=== PATIENT | female | born 1980 | race Caucasian/White ===

== ENCOUNTER 2016-07-24 23:37 | Emergency (ER) | payer SELFPAY ==
[2016-07-25] MEDS ORDERED: ACETAMINOPHEN 325 MG TABLET PO ONE (02:04)
--- NOTE | 2016-07-25 05:30 | ER Document Report ---
ED General - General Chief Complaint: Wrist Injury Stated Complaint: LEFT WRIST INJURY Notes: Patient is a 36-year-old female presents with complaint of pain in left wrist. Patient says that she's taking out the trash and her son was helping her. She says usually, the trash that he cannot hard on her left hand. She complains of pain over her wrist and hand. Feels some numbness and tingling into her fingertips. No other injuries. She says it hurts to move her hand or wrist. TRAVEL OUTSIDE OF THE [place] IN LAST 30 DAYS: No - Related Data Allergies/Adverse Reactions: cephalexin monohydrate [From Keflex] Allergy (Verified 02/20/16 19:47) Past Medical History - Social History Smoking Status: Unknown if Ever Smoked Frequency of alcohol use: None Drug Abuse: None Family History: Reviewed & Not Pertinent Patient has suicidal ideation: No Patient has homicidal ideation: No - Past Medical History Cardiac Medical History: Denies: Hx Coronary Artery Disease, Hx Hypertension Pulmonary Medical History: Denies: Hx Asthma Neurological Medical History: Reports: Hx Migraine Endocrine Medical History: Denies: Hx Diabetes Mellitus Type 1, Hx Diabetes Mellitus Type 2 Renal/ Medical History: Reports: Hx Ovarian Cysts. Denies: Hx Peritoneal Dialysis GI Medical History: Reports: Hx Gastritis Musculoskeltal Medical History: Reports Hx Musculoskeletal Deformity - both arm and left foot, Reports Hx Musculoskeletal Trauma Past Surgical History: Reports: Hx Appendectomy - 01, Hx Cholecystectomy - 04, Hx Hysterectomy. Denies: Hx Section - Immunizations Immunizations up to date: Yes Hx Diphtheria, Pertussis, Tetanus Vaccination: Yes - 2006 Review of Systems - Review of Systems Notes: My Normal Review Basic REVIEW OF SYSTEMS: CONSTITUTIONAL : Denies fever, chills, or sweats. Denies recent illness. MUSCULOSKELETAL: Pain over left hand and wrist. SKIN: Denies rash or skin lesions. NEUROLOGICAL: Tingling sensation in the left fingertips. ALL OTHER SYSTEMS REVIEWED AND NEGATIVE. Physical Exam - Vital signs Vitals: Temp Pulse Resp BP Pulse Ox 97.7 F 80 18 145/92 H 100 07/25/16 02:00 07/25/16 02:00 07/25/16 02:00 07/25/16 02:00 07/25/16 02:00 - Notes Notes: General Appearance: Well nourished, alert, cooperative, no acute distress, moderate obvious discomfort. Vitals: reviewed, See vital signs table. Extremities: strength 5/5 in all extremities, good pulses in all extremities, pain to palpation over the dorsum of left hand and wrist. Some swelling over the dorsum of the proximal hand and wrist. Good capillary refill in the hand. Patient does have good distal sensation when I touch all fingers. She is able to flex her fingers but has some pain in doing so. No edema. Skin: warm, dry, appropriate color, no rash Neuro: speech clear, oriented x 3, normal affect, responds appropriately to questions. Course - Vital Signs Vital signs: Temp Pulse Resp BP Pulse Ox 97.7 F 80 18 145/92 H 100 07/25/16 02:00 07/25/16 02:00 07/25/16 02:00 07/25/16 02:00 07/25/16 02:00 - Transfer of Care Notes: 07/25/16 05:26 Patient has what appears be a wrist and hand contusion. X-rays negative for fracture. She'll be discharged home. I will place her in a cock-up splint being that she does have some pain over the scaphoid area. Will have her follow -up with her doctor in one week for reevaluation to see if she needs repeat x- rays. Patient encouraged return to ER shows worsening of her symptoms. Patient agrees with plan and will be discharged home. Dictation of this chart was performed using voice recognition software; therefore, there may be some unintended grammatical errors. Discharge - Discharge Clinical Impression: Hand contusion Qualifiers: Encounter type: initial encounter Laterality: left Qualified Code(s): S60.222A - Contusion of left hand, initial encounter Wrist contusion Qualifiers: Encounter type: initial encounter Laterality: left Qualified Code(s): S60.212A - Contusion of left wrist, initial encounter Condition: Good Disposition: HOME, SELF-CARE Instructions: Oral Narcotic Medication ([facility]) Additional Instructions: Please wear the splint that has been given to you. This will help protect your wrist in case there is an tendonous injury or a small fracture that is not able to be seen on x-ray. Please follow-up with your doctor in one week. If you're still having pain they may re-x-ray your hand and wrist. If you're pain-free then most likely you can remove the wrist splint at that time. Return to the ER if you have worsening of your symptoms.
[2016-07-25] MEDS ORDERED: HYDROCODONE/ACETAMINOPHEN 5-325 MG 6 TAB/DSPK PO PRN (06:05)
[2016-07-25 06:10] VITALS: BP 139/85
== END 2016-07-25 06:09 | disposition home or self-care (01) ==
LOC: ER 23:37
DX: S60.212A Contusion of left wrist, initial encounter (principal); S60.222A Contusion of left hand, initial encounter; W20.8XXA Other cause of strike by thrown, projected or falling object, initial encounter; Y93.89 Activity, other specified; R20.2 Paresthesia of skin; M79.642 Pain in left hand; M25.532 Pain in left wrist
CPT/HCPCS: 99283; 73110; L3984

== ENCOUNTER 2016-08-08 19:37 | Emergency (ER) | payer SELFPAY ==
[2016-08-08 19:50] VITALS: BP 135/95
[2016-08-08] MEDS ORDERED: HYDROCODONE/ACETAMINOPHEN 5-325 MG TABLET PO ONE (20:16)
--- NOTE | 2016-08-08 20:17 | ER Document Report ---
HPI - HPI Patient complains to provider of: knee, ankle and foot injury Onset: This afternoon Onset/Duration: Sudden Quality of pain: Sharp Pain Level: 4 Context: Patient states she was cleaning out a pool, slipped and fell injuring her left knee, foot and ankle. Patient states that she felt a pop in her knee. Patient does report a previous history of torn tendons in her foot for which she saw an orthopedic doctor last year. Associated Symptoms: Other - Left knee, foot and ankle pain Exacerbated by: Standing, Movement, Walking Relieved by: Denies Similar symptoms previously: Yes Recently seen / treated by doctor: No - ROS ROS below otherwise negative: Yes Systems Reviewed and Negative: Yes All other systems reviewed and negative - NEURO Neurology: DENIES: Weakness - REPRODUCTIVE Reproductive: DENIES: : - MUSCULOSKELETAL Musculoskeletal: REPORTS: Extremity pain - Left knee, foot and ankle - DERM Skin Color: Normal Skin Problems: None Past Medical History - General Information source: Patient - Social History Smoking Status: Current Every Day Smoker Frequency of alcohol use: None Drug Abuse: None 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 Denies: Hx Peritoneal Dialysis GI Medical History: Reports: Hx Gastritis Musculoskeltal Medical History: Reports Hx Musculoskeletal Deformity - both arm and left foot, Reports Hx Musculoskeletal Trauma Past Surgical History: Reports: Hx Appendectomy - 01, Hx Cholecystectomy - 04, Hx Hysterectomy. Denies: Hx Section - Immunizations Immunizations up to date: Yes Hx Diphtheria, Pertussis, Tetanus Vaccination: Yes - 2006 [facility] Provider Document - CONSTITUTIONAL Agree With Documented VS: Yes Exam Limitations: No Limitations General Appearance: WD/WN, No Apparent Distress - INFECTION CONTROL TRAVEL OUTSIDE OF THE [place] IN LAST 30 DAYS: No - HEENT HEENT: Atraumatic, Normocephalic - NECK Neck: Normal Inspection - RESPIRATORY Respiratory: No Respiratory Distress O2 Sat by Pulse Oximetry: 99 - CARDIOVASCULAR Pulses: Normal: Posterior tibial, Dorsalis pedis - MUSCULOSKELETAL/EXTREMETIES Musculoskeletal/Extremeties: MAEW, Tender - Left knee joint tenderness to lateral compartment. Patient with faint ecchymosis overlying knee. No joint effusion. No laxity with varus or valgus maneuvers., No Edema, Eccymosis Notes: Left ankle tenderness over bilateral malleolar area. 1+ edema noted to lateral malleolar area to bilateral ankles. Patient with left midfoot tenderness, no edema, no ecchymosis. - NEURO Level of Consciousness: Awake, Alert, Appropriate Motor/Sensory: No Motor Deficit - DERM Integumentary: Warm, Dry Course - Re-evaluation Re-evalutation: 08/08/16 21:02 The patient has been informed that they may have pre-hypertension or hypertension based on a blood pressure reading in the emergency department. I recommend that patient call the primary care provider listed on their discharge instructions or a physician of their choice by this week to arrange follow-up for further evaluation of possible pre-hypertension her hypertension. - Vital Signs Vital signs: Temp Pulse Resp BP Pulse Ox 97.5 F 107 H 20 135/95 H 99 08/08/16 19:46 08/08/16 19:46 08/08/16 19:46 08/08/16 19:46 08/08/16 19:46 - Diagnostic Test Radiology reviewed: Image reviewed, Reports reviewed Procedures - Immobilization Left Knee Pre-Proc Neuro Vasc Exam: Normal Immobilizer type: Knee immobilizer Performed by: PCT Post-Proc Neuro Vasc Exam: Normal Alignment checked and good: Yes Left Ankle Pre-Proc Neuro Vasc Exam: Normal Immobilizer type: Magdi wrap Performed by: PCT Post-Proc Neuro Vasc Exam: Normal Alignment checked and good: Yes Left Foot Pre-Proc Neuro Vasc Exam: Normal Immobilizer type: Post-op shoe Performed by: PCT Post-Proc Neuro Vasc Exam: Normal Alignment checked and good: Yes Discharge - Discharge Clinical Impression: Left foot pain, Elevated blood pressure reading Fall Qualifiers: Encounter type: initial encounter Qualified Code(s): W19.XXXA - Unspecified fall, initial encounter Knee sprain Qualifiers: Encounter type: initial encounter Involved ligament of knee: unspecified ligament Laterality: left Qualified Code(s): S83.92XA - Sprain of unspecified site of left knee, initial encounter Left ankle sprain Qualifiers: Encounter type: initial encounter Involved ligament of ankle: unspecified ligament Qualified Code(s): S93.402A - Sprain of unspecified ligament of left ankle, initial encounter Condition: Stable Disposition: HOME, SELF-CARE Instructions: Ice & Elevation ([facility]), Use of Crutches ([facility]), Knee Immobilizing Splint ([facility]), Sprained Knee ([facility]), Sprained Ankle ([facility]), Oral Narcotic Medication ([facility]), Ice Packs ([facility]) Additional Instructions: Return immediately for any new or worsening symptoms Followup with your primary care provider, call tomorrow to make a followup appointment Weightbearing as tolerated Follow-up with orthopedic Dr. for any continued pain or problems Your blood pressure was mildly elevated today, recheck with primary doctor in the next week for recheck Prescriptions: Hydrocodone/Acetaminophen [Liberty 5-325 Tablet] 1 each PO Q4 PRN #8 tablet PRN Reason: Forms: Elevated Blood Pressure, Return to Work Referrals: PASTORA MCCULLOUGH DO [ACTIVE STAFF] - Follow up in 3-5 days [facility] [Provider Group] - Follow up as needed
[2016-08-08] MEDS ORDERED: HYDROCODONE/ACETAMINOPHEN 5-325 MG 6 TAB/DSPK PO PRN (21:04)
== END 2016-08-08 21:32 | disposition home or self-care (01) ==
LOC: ER 19:37
DX: S83.92XA Sprain of unspecified site of left knee, initial encounter (principal); S93.402A Sprain of unspecified ligament of left ankle, initial encounter; M25.562 Pain in left knee; M25.572 Pain in left ankle and joints of left foot; W01.0XXA Fall on same level from slipping, tripping and stumbling without subsequent striking against object, initial encounter; F17.200 Nicotine dependence, unspecified, uncomplicated
CPT/HCPCS: 99284; 73610; 73630; 73562; L1830

== ENCOUNTER 2016-08-23 00:09 | Emergency (ER) | payer SELFPAY ==
[2016-08-23] MEDS ORDERED: ASPIRIN 81 MG TABLET, CHEWABLE PO ONE (00:12)
[2016-08-23 01:58] LABS: ABSOLUTE BASOPHILS # (AUTO) 0.1 10^3/uL (0.0-0.2); ABSOLUTE EOSINOPHILS # (AUTO) 0.2 10^3/uL (0.0-0.6); ABSOLUTE LYMPHOCYTES (AUTO) 6.4 10^3/uL (0.5-4.7); ABSOLUTE MONOCYTES (AUTO) 0.7 10^3/uL (0.1-1.4); ABSOLUTE NEUT (AUTO) 6.6 10^3/uL (1.7-8.2); EOSINOPHILS % (AUTO) 1.5 % (0-6); HEMATOCRIT 40.4 % (36.0-47.0); HEMOGLOBIN 13.4 g/dL (12.0-15.5); HGB HCT DIFFERENCE -0.2; LYMPHOCYTES % (AUTO) 45.4 % (13-45); MEAN CORPUSCULAR HEMOGLOBIN 29.1 pg (27.0-33.4); MEAN CORPUSCULAR HGB CONC 33.2 g/dL (32.0-36.0); MEAN CORPUSCULAR VOLUME 88 fl (80-97); MONOCYTES % (AUTO) 5.3 % (3-13); RED BLOOD COUNT 4.61 10^6/uL (3.72-5.28); RED CELL DISTRIBUTION WIDTH 13.4 % (11.5-14.0); SEGMENTED NEUTROPHILS % (AUTO) 46.8 % (42-78); WHITE BLOOD COUNT 14.1 10^3/uL (4.0-10.5)
[2016-08-23 02:13] LABS: ALANINE AMINOTRANSFERASE 38 U/L (9-52); ALBUMIN 4.3 g/dL (3.5-5.0); ALKALINE PHOSPHATASE 90 U/L (38-126); ANION GAP 11 (5-19); ASPARTATE AMINO TRANSFERASE 25 U/L (14-36); BILIRUBIN,DIRECT 0.5 mg/dL (0.0-0.4); BILIRUBIN,TOTAL 0.6 mg/dL (0.2-1.3); BLOOD UREA NITROGEN 15 mg/dL (7-20); CARBON DIOXIDE 19 mmol/L (22-30); CHLORIDE 109 mmol/L (98-107); CREATINE KINASE 123 U/L (30-135); GLUCOSE 96 mg/dL (75-110); POTASSIUM 3.7 mmol/L (3.6-5.0); SODIUM 139.4 mmol/L (137-145); TOTAL PROTEIN 7.4 g/dL (6.3-8.2)
--- NOTE | 2016-08-23 02:16 | ER Document Report ---
ED General - General Chief Complaint: Chest Pain Stated Complaint: CHEST PAIN Time Seen by Provider: 08/23/16 02:13 Notes: Patient is a 36-year-old female who presents with complaint of chest pain. She says chest pain started at 11 PM. The pressure pain going into her neck and into her left shoulder. Nothing seems to make it better or worse. She does feel slightly short of breath with it. No recent fevers or infections. No abdominal pain. Patient says she has a family history of cardiac disease. Her dad had a heart attack at age 34. She says that her father did have a heart cath after the IL but never had stents place and did not have a blockage that she is aware of. Her grandfather in his 40s from what she thinks was an IL. Her mother just had a heart attack last year. The patient had a stress test approximately 4 years ago which was normal. She states typically does not get this kind of chest pain. She has no other complaints at this time. TRAVEL OUTSIDE OF THE [place] IN LAST 30 DAYS: No - Related Data Allergies/Adverse Reactions: cephalexin monohydrate [From Keflex] Allergy (Verified 08/08/16 19:46) Past Medical History - Social History Smoking Status: Current Every Day Smoker Frequency of alcohol use: None Drug Abuse: None Family History: Reviewed & Not Pertinent - Past Medical History Cardiac Medical History: Denies: Hx Coronary Artery Disease, Hx Hypertension Pulmonary Medical History: Denies: Hx Asthma Neurological Medical History: Reports: Hx Migraine Endocrine Medical History: Denies: Hx Diabetes Mellitus Type 1, Hx Diabetes Mellitus Type 2 Renal/ Medical History: Reports: Hx Ovarian Cysts. Denies: Hx Peritoneal Dialysis GI Medical History: Reports: Hx Gastritis Musculoskeltal Medical History: Reports Hx Musculoskeletal Deformity - both arm and left foot, Reports Hx Musculoskeletal Trauma Past Surgical History: Reports: Hx Appendectomy - 01, Hx Cholecystectomy - 04, Hx Hysterectomy. Denies: Hx Section - Immunizations Immunizations up to date: Yes Hx Diphtheria, Pertussis, Tetanus Vaccination: Yes - 2006 Review of Systems - Review of Systems Notes: My Normal Review Basic REVIEW OF SYSTEMS: CONSTITUTIONAL : Denies fever, chills, or sweats. Denies recent illness. EENT: Denies eye, ear, throat, or mouth pain or symptoms. Denies nasal or sinus congestion. CARDIOVASCULAR: Has chest pain. RESPIRATORY: Denies cough, cold, or chest congestion. Denies shortness of breath, difficulty breathing, or wheezing. GASTROINTESTINAL: Denies abdominal pain. Denies nausea, vomiting, or diarrhea. Denies constipation. Last BM: MUSCULOSKELETAL: Denies neck or back pain or joint pain or swelling. SKIN: Denies rash or skin lesions. NEUROLOGICAL: Denies altered mental status or loss of consciousness. Denies headache. Denies weakness or paralysis or loss of use of either side. Denies problems with gait or speech. Denies sensory or motor loss. ALL OTHER SYSTEMS REVIEWED AND NEGATIVE. Physical Exam - Vital signs Vitals: Pulse Ox 98 08/23/16 00:12 - Notes Notes: General Appearance: Well nourished, alert, cooperative, no acute distress, moderate obvious discomfort. Vitals: reviewed, See vital signs table. Head: no swelling or tenderness to the head Eyes: PERRL, EOMI, Conjuctiva clear Mouth: No decreasd moisture Neck: Supple, no neck tenderness, No thyromegaly Lungs: No wheezing, No rales, No rhonci, No accessory muscle use, good air exchange bilaterally. Heart: Normal rate, Regular rythm, No murmur, no rub Chest Wall: Patient's anterior chest wall is very tender to palpation. Abdomen: Normal BS, soft, No rigidity, No abdominal tenderness, No guarding, no rebound, no abdominal masses, no organomegaly Extremities: strength 5/5 in all extremities, good pulses in all extremities, no swelling or tenderness in the extremities, no edema. Skin: warm, dry, appropriate color, no rash Neuro: speech clear, oriented x 3, normal affect, responds appropriately to questions. Course - Vital Signs Vital signs: Temp Pulse Resp BP Pulse Ox 18 131/84 H 99 08/23/16 04:14 08/23/16 04:14 08/23/16 04:14 - Laboratory Result Diagrams: 08/23/16 01:30 08/23/16 01:30 Laboratory results interpreted by me: 08/23/16 08/23/16 01:30 01:30 WBC 14.1 H Lymphocytes % 45.4 H Absolute Lymphocytes 6.4 H Chloride 109 H Carbon Dioxide 19 L Direct Bilirubin 0.5 H - EKG Interpretation by Me Additional EKG results interpreted by me: 08/23/16 02:16 EKG is reviewed and interpreted by me. EKG shows normal sinus rhythm with rate of [address] segment elevation or depression. No ischemic T-wave inversions. ND interval is slightly prolonged. QRS duration QT intervals are within normal range. 08/23/16 04:29 #2 is reviewed and interpreted by me. EKG shows normal sinus rhythm with a rate of [address] segment elevation or depression. No ischemic T-wave inversions. ND interval, QRS duration, QTc intervals are within normal range. - Transfer of Care Notes: 08/23/16 06:34 Corrected from my or smoking and family history. Her family history is not 100 % clear. She says her father had an IL at the age of 34; however, she also says that she had a cardiac cath and there was no blockages no stents were placed. Her mother has had an IL but her mother just had one last year and therefore her mother was much older when she had the MRI. The patient herself is easily reproducible chest pain to palpation. Her troponin and Advil troponin are normal. Her EKG and repeat EKGs are normal. I do not suspect cardiac disease at this time. I think she is low risk for cardiac disease. I think it is appropriate to have her do an outpatient follow-up with cardiology. I do not think she requires admission at this time. She is encouraged to return to ER if she is worsening pain or feels unwell. CT a of the chest was negative. There is no evidence of PE or dissection. Dictation of this chart was performed using voice recognition software; therefore, there may be some unintended grammatical errors. 08/23/16 06:43 Discharge - Discharge Clinical Impression: Chest pain Qualifiers: Chest pain type: unspecified Qualified Code(s): R07.9 - Chest pain, unspecified Condition: Good Disposition: HOME, SELF-CARE Additional Instructions: CHEST PAIN OF UNCLEAR CAUSE: The exact cause of your chest pain isn't clear. Fortunately, there is no evidence of a dangerous medical condition. Further testing may be required to find the source of the pain. Most often, we find that this pain is coming from the chest wall -- the muscles or rib joints in the chest. But chest pain can come from the lung and lung lining, the esophagus, the heart valves or heart lining, and even the stomach or gallbladder. Rest. Eat lightly until the pain is gone. We may prescribe medicine for pain and inflammation. You should call the physician immediately if the pain radiates to the shoulder, jaw or arms; if you start to run a fever or develop a cough; or if you develop shortness of breath, or other new or alarming symptoms. NORMAL EXAM AND WORKUP: At this time, your examination and workup show no significant abnormality. No significant abnormal physical findings were noted. All laboratory, EKG, and imaging (x-ray, CT scans) studies that were ordered show no significant abnormality. Although your examination and all studies that were ordered showed no significant abnormal finding, there are no examinations and no studies that are 100% accurate. There is always the possibility that some abnormality could exist and not be detected with physical examination or within the limits and capabilities of laboratory and other studies. You should return or follow up as you were instructed on your visit today for further evaluation if your symptoms do not resolve. FOLLOW-UP CARE: If you have been referred to a physician for follow-up care, call the physician s office for an appointment as you were instructed or within the next two days. If you experience worsening or a significant change in your symptoms, notify the physician immediately or return to the Emergency Department at any time for re-evaluation. Please return to the ER immediately if you have worsening pain, difficulty breathing, fevers, or feel unwell. Please call Dr. Cameron, theater projectionist, on Wednesday for reevaluation. Please take a daily aspirin as this is protective of your heart.
[2016-08-23 02:24] LABS: CREATINE KINASE MB 0.33 ng/mL (<4.55)
[2016-08-23 02:25] LABS: TROPONIN I < 0.012 ng/mL
[2016-08-23] MEDS ORDERED: NITROGLYCERIN 2% OINTMENT 1 GM PACKET TP ONE (02:27)
[2016-08-23] MEDS ORDERED: LORAZEPAM INJ 2 MG/1 ML VIAL IV ONE (02:27)
--- NOTE | 2016-08-23 03:46 | RADIOLOGY REPORT (SQ) ---
EXAM DESCRIPTION: CHEST SINGLE VIEW COMPLETED DATE/TIME: 08/23/2016 3:18 am REASON FOR STUDY: chest pain COMPARISON: 01/21/2015 EXAM PARAMETERS: NUMBER OF VIEWS: One view. TECHNIQUE: Single frontal radiographic view of the chest acquired. RADIATION DOSE: NA LIMITATIONS: None. FINDINGS: LUNGS AND PLEURA: Low lung volumes results in bronchovascular crowding. No focal consolid ation, large pleural effusion, or pneumothorax is evident. MEDIASTINUM AND HILAR STRUCTURES: No masses. Contour normal. HEART AND VASCULAR STRUCTURES: Heart normal in size. Normal vasculature. BONES: No acute findings. HARDWARE: None in the chest. OTHER: No other significant finding. IMPRESSION: NO ACUTE RADIOGRAPHIC FINDING IN THE CHEST. TECHNICAL DOCUMENTATION: JOB ID: [id number]
[2016-08-23 04:45] VITALS: BP 131/84
[2016-08-23] MEDS ORDERED: HYDROCODONE/ACETAMINOPHEN 5-325 MG TABLET PO ONE (05:32)
[2016-08-23] MEDS ORDERED: NORMAL SALINE 1000 ML 1,000 ML IV ONE (05:32)
--- NOTE | 2016-08-23 06:22 | RADIOLOGY REPORT (SQ) ---
EXAM DESCRIPTION: CTA CHEST COMPLETED DATE/TIME: 08/23/2016 6:07 am REASON FOR STUDY: chest pain COMPARISON: Chest x-ray done earlier the same day. TECHNIQUE: CT scan of the chest performed using helical scanning technique with dynamic intravenous contrast injection. Images reviewed with lung, soft tissue and bone windows. Reconstructed coronal and sagittal MPR images reviewed. Additional 3 dimensional post-processing performed to develop Maximal Intensity Projection images (WI P). All images stored on PACS. All CT scanners at this facility use dose modulation, iterative reconstruction, and/or weight based d osing when appropriate to reduce radiation dose to as low as reasonably achievable (ALARA). [facility]: Dose Right [facility]: CareDose [facility]: Dose Right [facility]: Teradose 4D [facility]: [employer] CONTRAST TYPE AND DOSE: 90 mL Isovue 370 RENAL FUNCTION: BUN 15, creatinine 0.80 RADIATION DOSE: 28.98 mGy. LIMITATIONS: None. FINDINGS: LUNGS AND PLEURA: There is minimal airspace disease in the lingula consistent with focal a telectasis. No consolidation or pleural effusions. There is minimal left basilar atelectasis. AORTA AND GREAT VESSELS: No aneurysm or dissection. HEART: No pericardial effusion. PULMONARY ARTERIES: No emboli visualized in the main pulmonary arteries or the segmental branches. HILAR AND MEDIASTINAL STRUCTURES: No identified masses or abnormal nodes. HARDWARE: None in the chest. UPPER ABDOMEN: No significant findings. Limited exam. THYROID AND OTHER SOFT TISSUES: No masses. No adenopathy. BONES: No acute or significant finding. 3D MIPS: Confirm above findings. OTHER: There is a moderate-sized hiatal hernia. IMPRESSION: Minimal lingular atelectasis in left basilar atelectasis. No pulmonary emboli. TECHNICAL DOCUMENTATION: JOB ID: [id number] Quality ID # [id number]: Final reports with documentation of one or more dose reduction techniques (e.g., Au tomated exposure control, adjustment of the mA and/or kV according to patient size, use of iterative reconstruction technique) 2010 [employer]- All Rights Reserved
--- NOTE | 2016-08-23 09:12 | EKG REPORT ---
SEVERITY:- BORDERLINE ECG - SINUS RHYTHM BORDERLINE T ABNORMALITIES, INFERIOR LEADS : Confirmed by: Dangelo Mcmillan MD 23-Aug-2016 09:12:26
--- NOTE | 2016-08-23 09:14 | EKG REPORT ---
SEVERITY:- BORDERLINE ECG - SINUS RHYTHM NONSPECIFIC ST-T CHANGES- INFERIOR LEADS : Confirmed by: Dangelo Mcmillan MD 23-Aug-2016 09:13:53
== END 2016-08-23 06:46 | disposition home or self-care (01) ==
LOC: ER 00:09
DX: R07.9 Chest pain, unspecified (principal); R06.02 Shortness of breath; F17.200 Nicotine dependence, unspecified, uncomplicated; Z82.49 Family history of ischemic heart disease and other diseases of the circulatory system; Z88.1 Allergy status to other antibiotic agents
CPT/HCPCS: 93005; 99285; 96361; 96374; 36415; 82553; 82550; 85025; 80053; 84484; 71010; 71275; 93010; J2060; J7030

== ENCOUNTER 2016-09-11 17:34 | Emergency (ER) | payer SELFPAY ==
[2016-09-11] MEDS ORDERED: MORPHINE SULFATE 10 MG/ML INJ IV ONE (19:10)
[2016-09-11] MEDS ORDERED: DEXAMETHASONE SOD PHOS INJ 10 MG/1 ML VIAL IV ONE (19:10)
[2016-09-11] MEDS ORDERED: NORMAL SALINE 1000 ML 1,000 ML IV PRN (19:10)
--- NOTE | 2016-09-11 19:14 | ER Document Report ---
ED Medical Screen (RME) - General Chief Complaint: Difficulty Swallowing Stated Complaint: SORE THROAT/DIFFICULTY BREATHING Time Seen by Provider: 09/11/16 19:05 Mode of Arrival: Ambulatory Information source: Patient TRAVEL OUTSIDE OF THE [place].S[place] IN LAST 30 DAYS: No - HPI Patient complains to provider of: Sore throat, difficulty breathing and swallowing Notes: 09/11/16 19:13 Patient is a 36-year-old female who presents to the emergency room complaining of sore throat with difficulty breathing and difficulty swallowing this been going on since yesterday with a history of similar symptoms back in 2010 and she was diagnosed with a mass in her throat admitted to the [facility] [place] [facility] [place] for for 5 days for IV antibiotic, no surgery was performed at that time - Related Data Allergies/Adverse Reactions: cephalexin monohydrate [From [employer]] Allergy (Verified 09/11/16 17:41) Past Medical History - Social History Chew tobacco use (# tins/day): No Frequency of alcohol use: None Drug Abuse: None - Past Medical History Cardiac Medical History: Denies: Hx Coronary Artery Disease, Hx Hypertension Pulmonary Medical History: Denies: Hx Asthma Neurological Medical History: Reports: Hx Migraine Endocrine Medical History: Denies: Hx Diabetes Mellitus Type 1, Hx Diabetes Mellitus Type 2 Renal/ Medical History: Reports: Hx Ovarian Cysts. Denies: Hx Peritoneal Dialysis GI Medical History: Reports: Hx Gastritis Musculoskeltal Medical History: Reports Hx Musculoskeletal Deformity - both arm and left foot, Reports Hx Musculoskeletal Trauma Past Surgical History: Reports: Hx Appendectomy - 01, Hx Cholecystectomy - 04, Hx Hysterectomy. Denies: Hx Section - Immunizations Immunizations up to date: Yes Hx Diphtheria, Pertussis, Tetanus Vaccination: Yes - 2006 Physical Exam - Vital signs Vitals: Temp Pulse Resp BP Pulse Ox 98.1 F 73 20 153/100 H 100 09/11/16 17:41 09/11/16 17:41 09/11/16 17:41 09/11/16 17:41 09/11/16 17:41 Course - Vital Signs Vital signs: Temp Pulse Resp BP Pulse Ox 98.1 F 73 20 153/100 H 100 09/11/16 17:41 09/11/16 17:41 09/11/16 17:41 09/11/16 17:41 09/11/16 17:41
[2016-09-11 20:16] LABS: ABSOLUTE BASOPHILS # (AUTO) 0.1 10^3/uL (0.0-0.2); ABSOLUTE EOSINOPHILS # (AUTO) 0.2 10^3/uL (0.0-0.6); ABSOLUTE LYMPHOCYTES (AUTO) 3.8 10^3/uL (0.5-4.7); ABSOLUTE MONOCYTES (AUTO) 0.7 10^3/uL (0.1-1.4); ABSOLUTE NEUT (AUTO) 7.3 10^3/uL (1.7-8.2); BASOPHILS % (AUTO) 0.9 % (0-2); EOSINOPHILS % (AUTO) 1.3 % (0-6); HEMATOCRIT 42.7 % (36.0-47.0); HEMOGLOBIN 13.7 g/dL (12.0-15.5); HGB HCT DIFFERENCE -1.6; LYMPHOCYTES % (AUTO) 31.8 % (13-45); MEAN CORPUSCULAR HEMOGLOBIN 28.8 pg (27.0-33.4); MEAN CORPUSCULAR HGB CONC 32.1 g/dL (32.0-36.0); MEAN CORPUSCULAR VOLUME 90 fl (80-97); MONOCYTES % (AUTO) 5.9 % (3-13); RED BLOOD COUNT 4.76 10^6/uL (3.72-5.28); RED CELL DISTRIBUTION WIDTH 13.7 % (11.5-14.0); SEGMENTED NEUTROPHILS % (AUTO) 60.1 % (42-78); WHITE BLOOD COUNT 12.1 10^3/uL (4.0-10.5)
[2016-09-11 20:22] LABS: APPEARANCE,URINE SLIGHTLY-CLOUDY; BILIRUBIN,URINE SMALL (NEGATIVE); GLUCOSE, URINE NEGATIVE (NEGATIVE); KETONES,URINE TRACE mg/dL (NEGATIVE); LEUKOCYTE ESTERASE,URINE NEGATIVE (NEGATIVE); NITRITE,URINE NEGATIVE (NEGATIVE); PROTEIN,URINE 100 mg/dL (NEGATIVE); URINE SPECIFIC GRAVITY 1.035; UROBILINOGEN,URINE NEGATIVE mg/dL (<2.0)
[2016-09-11 20:30] LABS: ALANINE AMINOTRANSFERASE 57 U/L (9-52); ALBUMIN 4.4 g/dL (3.5-5.0); ALKALINE PHOSPHATASE 116 U/L (38-126); ANION GAP 12 (5-19); ASPARTATE AMINO TRANSFERASE 51 U/L (14-36); BILIRUBIN,DIRECT 0.5 mg/dL (0.0-0.4); BLOOD UREA NITROGEN 21 mg/dL (7-20); CALCIUM 9.7 mg/dL (8.4-10.2); CARBON DIOXIDE 23 mmol/L (22-30); CHLORIDE 106 mmol/L (98-107); CREATININE RESULT 0.71 mg/dL (0.52-1.25); GLUCOSE 100 mg/dL (75-110); POTASSIUM 3.9 mmol/L (3.6-5.0); SODIUM 141.1 mmol/L (137-145); TOTAL PROTEIN 8.2 g/dL (6.3-8.2)
[2016-09-11] MEDS ORDERED: KETOROLAC TROMETHAMINE INJ/PF 30 MG/1 ML SDV IV ONE (21:17)
[2016-09-11] MEDS ORDERED: LIDOCAINE 2% VISCOUS SOLN 20 ML UDCUP PO ONE (21:18)
--- NOTE | 2016-09-11 21:23 | ER Document Report ---
ED General - General Chief Complaint: Difficulty Swallowing Stated Complaint: SORE THROAT/DIFFICULTY BREATHING Time Seen by Provider: 09/11/16 19:05 Mode of Arrival: Ambulatory Notes: Patient is a 36-year-old female who presents with 2 days of sore throat, odynophagia and statements that she feels that she is having difficulty breathing. Patient states that similar symptoms occurred in the past when she had a peritonsillar abscess in 2010. No known sick contacts. States that the pain prevents her from drinking or eating but she is able to swallow her oral secretions. She has not seen a primary care doctor regarding today's concerns. Nothing is been noted to improve or worsen her symptoms. She has not had a fever, headache, altered mental status vomiting or syncope. TRAVEL OUTSIDE OF THE [place] IN LAST 30 DAYS: No - Related Data Allergies/Adverse Reactions: cephalexin monohydrate [From [employer]] Allergy (Verified 09/11/16 17:41) Past Medical History - General Information source: Patient - Social History Smoking Status: Current Every Day Smoker Chew tobacco use (# tins/day): No Frequency of alcohol use: None Drug Abuse: None Lives with: Spouse/Significant other Family History: Reviewed & Not Pertinent Patient has suicidal ideation: No Patient has homicidal ideation: No - Past Medical History Cardiac Medical History: Denies: Hx Coronary Artery Disease, Hx Hypertension Pulmonary Medical History: Denies: Hx Asthma Neurological Medical History: Reports: Hx Migraine Endocrine Medical History: Denies: Hx Diabetes Mellitus Type 1, Hx Diabetes Mellitus Type 2 Renal/ Medical History: Reports: Hx Ovarian Cysts. Denies: Hx Peritoneal Dialysis GI Medical History: Reports: Hx Gastritis Musculoskeltal Medical History: Reports Hx Musculoskeletal Deformity - both arm and left foot, Reports Hx Musculoskeletal Trauma Past Surgical History: Reports: Hx Appendectomy - 01, Hx Cholecystectomy - 04, Hx Hysterectomy. Denies: Hx Section - Immunizations Immunizations up to date: Yes Hx Diphtheria, Pertussis, Tetanus Vaccination: Yes - 2006 Review of Systems - Review of Systems Notes: Constitutional: Negative for fever. HENT: Positive for sore throat. Eyes: Negative for visual changes. Cardiovascular: Negative for chest pain. Respiratory: Positive for shortness of breath. Gastrointestinal: Negative for abdominal pain, vomiting or diarrhea. Genitourinary: Negative for dysuria. Musculoskeletal: Negative for back pain. Skin: Negative for rash. Neurological: Negative for headaches, weakness or numbness. 10 point ROS negative except as marked above and in HPI. Physical Exam - Vital signs Vitals: Temp Pulse Resp BP Pulse Ox 98.1 F 73 20 153/100 H 100 09/11/16 17:41 09/11/16 17:41 09/11/16 17:41 09/11/16 17:41 09/11/16 17:41 Interpretation: Hypertensive Notes: PHYSICAL EXAMINATION: GENERAL: Well-appearing, well-nourished and in no acute distress. HEAD: Atraumatic, normocephalic. EYES: Pupils equal round and reactive to light, extraocular movements intact, sclera anicteric, conjunctiva are normal. ENT: nares patent, bilateral tonsillar erythema, uvula midline, no evidence of peritonsillar swelling or edema. Moist mucous membranes. No pain on movement of the thyroid cartilage. Phonation consistent with mild laryngitis NECK: Normal range of motion, bilateral anterior and submandibular lymphadenopathy that is tender on palpation. No stridor. LUNGS: Breath sounds clear to auscultation bilaterally and equal. No wheezes rales or rhonchi. HEART: Regular rate and rhythm without murmurs ABDOMEN: Soft, nontender, normoactive bowel sounds. No guarding, no rebound. No masses appreciated. EXTREMITIES: Normal range of motion, no pitting or edema. No cyanosis. NEUROLOGICAL: No focal neurological deficits. Moves all extremities spontaneously and on command. PSYCH: Normal mood, normal affect. SKIN: Warm, Dry, normal turgor, no rashes or lesions noted. Course - Re-evaluation Re-evalutation: 09/11/16 21:17 Presentation of several days of sore throat in an otherwise well-appearing patient. Patient does have a remote history of peritonsillar abscess but this is not clinically present on today's examination. History and exam are not consistent with a retropharyngeal abscess or peritonsillar abscess. Airway is patent. No difficulty handling oral secretions. Vitals within normal limits. She has been treated with a dose of Decadron. At this time will discharge with return precautions and follow-up recommendations. Verbal discharge instructions given a the bedside and opportunity for questions given. Medication warnings reviewed. Patient is in agreement with this plan and has verbalized understanding of return precautions and the need for primary care follow-up. - Vital Signs Vital signs: Temp Pulse Resp BP Pulse Ox 98.1 F 82 20 143/96 H 99 09/11/16 17:41 09/11/16 21:52 09/11/16 21:52 09/11/16 21:52 09/11/16 21:52 - Laboratory Result Diagrams: 09/11/16 19:15 09/11/16 19:15 Laboratory results interpreted by me: 09/11/16 09/11/16 09/11/16 19:15 19:15 19:15 WBC 12.1 H BUN 21 H Direct Bilirubin 0.5 H AST 51 H ALT 57 H Urine Protein 100 H Urine Ketones TRACE H Urine Bilirubin SMALL H Discharge - Discharge Clinical Impression: Odynophagia Pharyngitis Qualifiers: Pharyngitis/tonsillitis etiology: unspecified etiology Qualified Code(s): J02.9 - Acute pharyngitis, unspecified Condition: Good Disposition: HOME, SELF-CARE Additional Instructions: Please continue to take ibuprofen or Tylenol as needed for throat discomfort. There is nothing that will completely take away your pain at this time. You need to force yourself to take small sips of water to keep yourself hydrated. Please follow-up with your primary care doctor in the next 24-48 hours. Return if you have worsening of your pain, pass out, become unable to breathe easily, or have any other symptoms that are worrisome to you. Forms: Return to Work
[2016-09-11 21:53] VITALS: BP 143/96
== END 2016-09-11 21:52 | disposition home or self-care (01) ==
LOC: ER 17:34
DX: R13.10 Dysphagia, unspecified (principal); J02.9 Acute pharyngitis, unspecified; F17.200 Nicotine dependence, unspecified, uncomplicated; Z90.49 Acquired absence of other specified parts of digestive tract; Z90.710 Acquired absence of both cervix and uterus
CPT/HCPCS: 99284; 96361; 96374; 96375; 36415; 87040; 87070; 87086; 87880; 85025; 80053; 81001; J3490; J2270; J7030; J1100

== ENCOUNTER 2017-07-04 20:56 | Emergency (ER) | payer SELFPAY ==
[2017-07-04] MEDS ORDERED: ACETAMINOPHEN 325 MG TABLET PO ONE (21:46)
--- NOTE | 2017-07-04 22:13 | RADIOLOGY REPORT (SQ) ---
EXAM DESCRIPTION: FOREARM LEFT COMPLETED DATE/TIME: 07/04/2017 10:05 pm REASON FOR STUDY: fall COMPARISON: None. NUMBER OF VIEWS: Two views. TECHNIQUE: Two radiographic images acquired of the left forearm, including elbow and wrist in at [address] one projection. LIMITATIONS: None. FINDINGS: MINERALIZATION: Normal. BONES: No acute fracture. No worrisome bone lesions. SOFT TISSUES: No obvious swelling or foreign body. OTHER: No other significant finding. IMPRESSION: NEGATIVE STUDY OF THE LEFT FOREARM. NO RADIOGRAPHIC EVIDENCE OF ACUTE INJURY. TECHNICAL DOCUMENTATION: JOB ID: [id number] [employer]- All Rights Reserved Reading location - IP/workstation name: [email or web address] [id number]
--- NOTE | 2017-07-04 22:14 | RADIOLOGY REPORT (SQ) ---
EXAM DESCRIPTION: HAND LEFT 2 VIEWS COMPLETED DATE/TIME: 07/04/2017 10:05 pm REASON FOR STUDY: fall COMPARISON: None. EXAM PARAMETERS: NUMBER OF VIEWS: Three views. TECHNIQUE: AP, lateral and oblique radiographic images acquired of the left hand. LIMITATIONS: None. FINDINGS: MINERALIZATION: Normal. BONES: No acute fracture or dislocation. No worrisome bone lesions. JOINTS: No effusions. SOFT TISSUES: No soft tissue swelling. No foreign body. OTHER: No other significant finding. IMPRESSION: NEGATIVE STUDY OF THE LEFT HAND. NO RADIOGRAPHIC EVIDENCE OF ACUTE INJURY. TECHNICAL DOCUMENTATION: JOB ID: [id number] [employer]- All Rights Reserved Reading location - IP/workstation name: [email or web address]
[2017-07-04] MEDS ORDERED: OXYCODONE HCL IR 5 MG TABLET PO ONE (22:35)
[2017-07-04] MEDS ORDERED: HYDROCODONE/ACETAMINOPHEN 5-325 MG (6 TAB/ER DISP) PO PRN (22:36)
--- NOTE | 2017-07-04 22:36 | ER Document Report ---
HPI - HPI Pain Level: 4 Context: Patient is a 37-year-old female presents emergency department after suffering a fall on oxygen she landing on her left hand. She admits to pain at the base of her thumb. States it is worse with movement. Has been trying to keep it elevated and applying ice. Denies any other medical issues. Did not take anything prior to arrival. - REPRODUCTIVE LMP: na Reproductive: DENIES: : - MUSCULOSKELETAL Musculoskeletal: REPORTS: Extremity pain Past Medical History - Social History Smoking Status: Never Smoker Chew tobacco use (# tins/day): No Frequency of alcohol use: None Drug Abuse: None Family History: Reviewed & Not Pertinent Patient has suicidal ideation: No Patient has homicidal ideation: No - Past Medical History Cardiac Medical History: Denies: Hx Coronary Artery Disease, Hx Hypertension Pulmonary Medical History: Denies: Hx Asthma Neurological Medical History: Reports: Hx Migraine Endocrine Medical History: Denies: Hx Diabetes Mellitus Type 1, Hx Diabetes Mellitus Type 2 Renal/ Medical History: Reports: Hx Ovarian Cysts. Denies: Hx Peritoneal Dialysis GI Medical History: Reports: Hx Gastritis Musculoskeltal Medical History: Reports Hx Musculoskeletal Deformity - both arm and left foot, Reports Hx Musculoskeletal Trauma Past Surgical History: Reports: Hx Appendectomy - 01, Hx Cholecystectomy - 04, Hx Hysterectomy. Denies: Hx Section - Immunizations Immunizations up to date: Yes Hx Diphtheria, Pertussis, Tetanus Vaccination: Yes - 2006 [facility] Provider Document - CONSTITUTIONAL Agree With Documented VS: Yes Notes: PHYSICAL EXAM GENERAL: Alert, interacts well. EXTREMITIES: Left snuffbox tendnerness. No edema, deformity. radial pulses 2/4 bilaterally. No cyanosis. NEUROLOGICAL: Alert and oriented x4. Normal speech. PSYCH: Normal affect, normal mood. SKIN: Warm, dry, normal turgor. No rashes or lesions noted. - INFECTION CONTROL TRAVEL OUTSIDE OF THE [place] IN LAST 30 DAYS: No Course - Re-evaluation Re-evalutation: 07/04/17 22:35 Patient is a 37-year-old female who presents after fall on an outstretched left hand with snuffbox tenderness. X-ray without any evidence of underlying fracture dislocation. Patient immobilized in a thumb spica given concern for an underlying scaphoid fracture with instructions to follow-up with orthopedics and for repeat imaging. Patient agrees with plan - Vital Signs Vital signs: Temp Pulse Resp BP Pulse Ox 97.9 F 75 157/96 H 100 07/04/17 21:20 07/04/17 21:20 07/04/17 21:20 07/04/17 21:20 - Diagnostic Test Radiology reviewed: Image reviewed, Reports reviewed Procedures - Immobilization Left Wrist Pre-Proc Neuro Vasc Exam: Normal Immobilizer type: Thumb spica Performed by: PCT Post-Proc Neuro Vasc Exam: Normal, Unchanged from pre-exam Alignment checked and good: Yes Discharge - Discharge Clinical Impression: Wrist injury Qualifiers: Encounter type: initial encounter Laterality: left Qualified Code(s): S69.92XA - Unspecified injury of left wrist, hand and finger(s), initial encounter Condition: Good Disposition: HOME, SELF-CARE Instructions: Splint Precautions ([facility]) Additional Instructions: There is concern that you may have done damage to a small bone in the wrist. Please wear the splint as directed and follow-up with orthopedics listed on your discharge paperwork. Forms: Return to Work Referrals: PASTORA MCCULLOUGH DO [ACTIVE STAFF] - Follow up in 1 week
[2017-07-04 23:23] VITALS: BP 158/97
== END 2017-07-04 23:23 | disposition home or self-care (01) ==
LOC: ER 20:56
DX: S69.92XA Unspecified injury of left wrist, hand and finger(s), initial encounter (principal); W01.0XXA Fall on same level from slipping, tripping and stumbling without subsequent striking against object, initial encounter
CPT/HCPCS: 99283

== ENCOUNTER 2017-08-11 21:47 | Emergency (ER) | payer SELFPAY ==
[2017-08-11] MEDS ORDERED: NAPROXEN 250 MG TABLET PO ONE (22:29)
[2017-08-11] MEDS ORDERED: HYDROCODONE/ACETAMINOPHEN 5-325 MG TABLET PO ONE (22:32)
--- NOTE | 2017-08-11 22:37 | ER Document Report ---
ED Fall - General Chief Complaint: Low Back Pain Stated Complaint: BACK PAIN Time Seen by Provider: 08/11/17 22:26 Notes: The patient is a 37-year-old female who presents after she fell down the stairs when she was putting boxes away at the attic. She landed on her bottom and injured her left shoulder. She is complaining of pain when she moves, but she is able to ambulate normally. Denies change in bowel or bladder, saddle anesthesia, numbness or tingling of the legs, open wounds, head injury or neck pain. TRAVEL OUTSIDE OF THE [place] IN LAST 30 DAYS: No - Related data Allergies/Adverse Reactions: cephalexin monohydrate [From K[employer]] Allergy (Verified 09/11/16 17:41) ketorolac [From Toradol] Allergy (Verified 01/27/17 21:57) tramadol Allergy (Verified 01/27/17 21:57) Past Medical History - General Information source: Patient - Social History Smoking Status: Former Smoker Chew tobacco use (# tins/day): No Frequency of alcohol use: None Drug Abuse: None Family History: Reviewed & Not Pertinent Patient has suicidal ideation: No Patient has homicidal ideation: No - Past Medical History Cardiac Medical History: Denies: Hx Coronary Artery Disease, Hx Hypertension Pulmonary Medical History: Denies: Hx Asthma Neurological Medical History: Reports: Hx Migraine Endocrine Medical History: Denies: Hx Diabetes Mellitus Type 1, Hx Diabetes Mellitus Type 2 Renal/ Medical History: Reports: Hx Ovarian Cysts. Denies: Hx Peritoneal Dialysis GI Medical History: Reports: Hx Gastritis Musculoskeltal Medical History: Reports Hx Musculoskeletal Deformity - both arm and left foot, Reports Hx Musculoskeletal Trauma Past Surgical History: Reports: Hx Appendectomy - 01, Hx Cholecystectomy - 04, Hx Hysterectomy. Denies: Hx Section - Immunizations Immunizations up to date: Yes Hx Diphtheria, Pertussis, Tetanus Vaccination: Yes - 2006 Review of Systems - Review of Systems Notes: REVIEW OF SYSTEMS: CONSTITUTIONAL: -fevers, -chills EENT: -eye pain, -difficulty swallowing, -nasal congestion CARDIOVASCULAR: -chest pain, -syncope. RESPIRATORY: -cough, -SOB GASTROINTESTINAL: -abdominal pain, -nausea, -vomiting, -diarrhea GENITOURINARY: -dysuria, -hematuria MUSCULOSKELETAL: +left shoulder pain, +back pain, -neck pain SKIN: -rash or skin lesions. HEMATOLOGIC: -easy bruising or bleeding. LYMPHATIC: -swollen, enlarged glands. NEUROLOGICAL: -altered mental status or loss of consciousness, -headache, - neurologic symptoms PSYCHIATRIC: -anxiety, -depression. ALL OTHER SYSTEMS REVIEWED AND NEGATIVE. Physical Exam - Vital signs Vitals: Temp Pulse Resp BP Pulse Ox 97.8 F 81 18 144/90 H 99 08/11/17 22:10 08/11/17 22:10 08/11/17 22:10 08/11/17 22:10 08/11/17 22:10 - Notes Notes: PHYSICAL EXAMINATION: GENERAL: Well-appearing, well-nourished and in no acute distress. HEAD: Atraumatic, normocephalic. EYES: Pupils equal round and reactive to light, extraocular movements intact, sclera anicteric, conjunctiva are normal. ENT: nares patent, oropharynx clear without exudates. Moist mucous membranes. NECK: Normal range of motion, supple without lymphadenopathy LUNGS: Breath sounds clear to auscultation bilaterally and equal. No wheezes rales or rhonchi. HEART: Regular rate and rhythm without murmurs ABDOMEN: Soft, nontender, normoactive bowel sounds. No guarding, no rebound. No masses appreciated. EXTREMITIES: Tenderness over left superior shoulder, Normal range of motion, no pitting or edema. No cyanosis. BACK: Tenderness over B/L lumbar paraspinal muscles and midline lumbar tenderness. NEUROLOGICAL: Cranial nerves grossly intact. Normal speech, normal gait. Normal sensory and motor exams. PSYCH: Normal mood, normal affect. SKIN: Warm, Dry, normal turgor, no rashes or lesions noted. Course - Re-evaluation Re-evalutation: Patient with no red flag signs for low back pain at this time. With her fall and tenderness over lumbar spine, x-ray was ordered, which did not show any acute fractures. She also has no fractures over her left shoulder. Spoke to her about contusion management and she understands. - Vital Signs Vital signs: Temp Pulse Resp BP Pulse Ox 97.8 F 81 18 144/90 H 99 08/11/17 22:10 08/11/17 22:10 08/11/17 22:10 08/11/17 22:10 08/11/17 22:10 - Diagnostic Test Radiology reviewed: Image reviewed, Reports reviewed Radiology results interpreted by me: Lumbar spine x-ray: NAD Left shoulder x-ray: NAD Discharge - Discharge Clinical Impression: Contusion, back Qualifiers: Encounter type: initial encounter Laterality: unspecified laterality Qualified Code(s): S20.229A - Contusion of unspecified back wall of thorax, initial encounter Left shoulder pain Qualifiers: Chronicity: acute Qualified Code(s): M25.512 - Pain in left shoulder Condition: Stable Disposition: HOME, SELF-CARE Additional Instructions: Take anti-inflammatories and use lidocaine patches and heating pads to help with your bruising. Contusion Your injury has resulted in a contusion -- a crushing of the deep tissues. No injury to important structures was detected during the physician's exam. Contusions vary in the amount of pain they cause, and in the length of time required for healing. Typically, the area will become bruised, and will remain painful to touch for two or three weeks. However, most patients are back to working and playing within a few days. After the initial period of rest and cold-packs, your symptoms (together with the doctor's recommendations) will determine how rapidly you can get back to full activity. Usually this means "do what feels okay, but don't do things that hurt." If re-examination was recommended, it's important to follow up as instructed. Call the doctor or return any time if pain increases, if swelling becomes severe, if you develop numbness or weakness in an injured extremity, or if any other alarming symptoms occur. LOW BACK PAIN: Three out of every four people will have an episode of disabling back pain during their lifetime. Most commonly the pain is due to straining of the muscles and ligaments in the low back. Usual treatment includes: (1) Rest on a firm surface. Avoid lying on your stomach. (2) Ice pack the painful area. After a few days, gentle heat may be used intermittently to relax the area, or ice packs can be continued. (3) Medication may be needed -- muscle relaxers and antiinflammatory medicines are commonly used. (4) As the back improves, exercises are prescribed to strengthen the back and abdominal muscles. Your doctor will advise you on the proper care for your back at each stage in your recovery. You may be better in a few days -- or healing may take several weeks. If new symptoms of a "herniated disc" (radiation of pain, numbness, or tingling down the back of the leg or weakness in the leg) occur, you should be re-examined. Further testing may be necessary. ICE PACKS: Apply ice packs frequently against the painful area. Many different schedules are recommended, such as "20 minutes on, 20 minutes off" or "one hour ice, two hours rest." If you need to work, you may need to go longer between ice treatments. You should plan to have the area ice packed AT LEAST one fourth of the time. The ice should be applied over the wrap, tape, or splint, or over a layer of cloth -- not directly against the skin. Some ice bags have a built-in cloth and can be put directly on the skin. WARM PACKS: After approximately two days, apply gentle heat (such as a heating pad or hot water bottle) for about 20 to 30 minutes about every two hours -- at least four times daily. Warmth and elevation will help you make a more rapid recovery , and will ease the pain considerably. Do not use HOT heat, and never apply heat for longer than 30 minutes. The continuous heat can invisibly damage skin and muscles -- even when no burn is seen on the surface. Damaged muscles can make you MORE sore. FOLLOW-UP CARE: If you have been referred to a physician for follow-up care, call the physician s office for an appointment as you were instructed or within the next two days. If you experience worsening or a significant change in your symptoms, notify the physician immediately or return to the Emergency Department at any time for re-evaluation. Prescriptions: Lidocaine [Lidoderm 5% (700 mg) Transdermal Patch] 1 patch TP DAILY #10 adh..patch Methocarbamol [Robaxin 500 mg Tablet] 500 mg PO Q4H PRN #15 tablet PRN Reason: Naproxen [Naprosyn 250 mg Tablet] 500 mg PO Q12H PRN #14 tablet PRN Reason: Forms: Elevated Blood Pressure Referrals: [facility] [Outside] - Follow up as needed
--- NOTE | 2017-08-11 23:35 | RADIOLOGY REPORT (SQ) ---
EXAM DESCRIPTION: L SPINE WHOLE COMPLETED DATE/TIME: 08/11/2017 10:43 pm REASON FOR STUDY: fall, pain COMPARISON: Lumbar spine x-ray 01/22/2016. NUMBER OF VIEWS: Five views including obliques. TECHNIQUE: AP, lateral, oblique, and sacral radiographic images acquired of the lumbar spine. LIMITATIONS: None. FINDINGS: MINERALIZATION: Normal. SEGMENTATION: Normal. No transitional anatomy. ALIGNMENT: Normal. VERTEBRAE: Maintained height. No fracture or worrisome bone lesion. DISCS: Preserved height. No significant osteophytes or end plate irregularity. POSTERIOR ELEMENTS: Pedicles and facets are intact. No pars defect. HARDWARE: None in the spine. Surgical clips at the right upper quadrant. PARASPINAL SOFT TISSUES: Normal. PELVIS: SI joints intact. IMPRESSION: No acute radiographic finding at the lumbar spine. TECHNICAL DOCUMENTATION: JOB ID: [id number] 2010 [employer]- All Rights Reserved Reading location - IP/workstation name: [email or web address]
--- NOTE | 2017-08-11 23:38 | RADIOLOGY REPORT (SQ) ---
EXAM DESCRIPTION: SHOULDER LEFT 2 OR MORE VIEWS COMPLETED DATE/TIME: 08/11/2017 10:43 pm REASON FOR STUDY: fall COMPARISON: None. NUMBER OF VIEWS: Three views. TECHNIQUE: Internal rotation, external rotation, and Y view images acquired of the left shoulder. LIMITATIONS: None. FINDINGS: MINERALIZATION: Normal. BONES: No acute fracture or dislocation. No worrisome bone lesions. JOINTS: No dislocation. VISUALIZED LUNGS AND RIBS: No pneumothorax. No displaced rib fracture. SOFT TISSUES: No radiopaque foreign body. IMPRESSION: No radiographic evidence of acute injury. TECHNICAL DOCUMENTATION: JOB ID: [id number] 2010 [employer]- All Rights Reserved Reading location - IP/workstation name: [email or web address]
[2017-08-11 23:55] VITALS: BP 140/98
== END 2017-08-11 23:55 | disposition home or self-care (01) ==
LOC: ER 21:47
DX: S20.229A Contusion of unspecified back wall of thorax, initial encounter (principal); M54.5 Low back pain; M25.512 Pain in left shoulder; W10.9XXA Fall (on) (from) unspecified stairs and steps, initial encounter; Z87.891 Personal history of nicotine dependence
CPT/HCPCS: 72110; 99283

== ENCOUNTER 2017-08-17 23:05 | Emergency (ER) | payer SELFPAY ==
[2017-08-17] MEDS ORDERED: DIPHENHYDRAMINE HCL 50 MG/ML VIAL IV ONE (23:41)
[2017-08-17] MEDS ORDERED: NORMAL SALINE 1000 ML 1,000 ML IV ONE (23:41)
[2017-08-17] MEDS ORDERED: PROCHLORPERAZINE EDISYLATE INJ 10 MG/2 ML VIAL IV ONE (23:41)
[2017-08-17 23:52] LABS: ABSOLUTE BASOPHILS # (AUTO) 0.1 10^3/uL (0.0-0.2); ABSOLUTE EOSINOPHILS # (AUTO) 0.2 10^3/uL (0.0-0.6); ABSOLUTE MONOCYTES (AUTO) 1.4 10^3/uL (0.1-1.4); ABSOLUTE NEUT (AUTO) 8.6 10^3/uL (1.7-8.2); BASOPHILS % (AUTO) 0.9 % (0-2); HEMATOCRIT 40.4 % (36.0-47.0); HEMOGLOBIN 13.8 g/dL (12.0-15.5); LYMPHOCYTES % (AUTO) 36.8 % (13-45); MEAN CORPUSCULAR HEMOGLOBIN 30.1 pg (27.0-33.4); MEAN CORPUSCULAR HGB CONC 34.1 g/dL (32.0-36.0); MEAN CORPUSCULAR VOLUME 88 fl (80-97); MONOCYTES % (AUTO) 8.5 % (3-13); PLATELET COUNT 422 10^3/uL (150-450); RED BLOOD COUNT 4.58 10^6/uL (3.72-5.28); RED CELL DISTRIBUTION WIDTH 13.7 % (11.5-14.0); SEGMENTED NEUTROPHILS % (AUTO) 52.8 % (42-78); TOTAL CELLS COUNTED % (AUTO) 100 %; WHITE BLOOD COUNT 16.2 10^3/uL (4.0-10.5)
[2017-08-18 00:07] LABS: ALANINE AMINOTRANSFERASE 37 U/L (9-52); ALBUMIN 4.4 g/dL (3.5-5.0); ALKALINE PHOSPHATASE 75 U/L (38-126); ANION GAP 14 (5-19); ASPARTATE AMINO TRANSFERASE 23 U/L (14-36); BILIRUBIN,DIRECT 0.2 mg/dL (0.0-0.4); BILIRUBIN,TOTAL 0.2 mg/dL (0.2-1.3); BLOOD UREA NITROGEN 17 mg/dL (7-20); CALCIUM 10.3 mg/dL (8.4-10.2); CARBON DIOXIDE 20 mmol/L (22-30); CHLORIDE 109 mmol/L (98-107); GLUCOSE 97 mg/dL (75-110); LIPASE 266.4 U/L (23-300); POTASSIUM 4.2 mmol/L (3.6-5.0); SODIUM 142.7 mmol/L (137-145); TOTAL PROTEIN 7.5 g/dL (6.3-8.2)
[2017-08-18] MEDS ORDERED: HYDROMORPHONE HCL INJ/PF 2 MG/ML AMPULE IV ONE (00:54)
--- NOTE | 2017-08-18 01:41 | ER Document Report ---
ED General - General Chief Complaint: Epigastric Pain Stated Complaint: ABDOMINAL PAIN Time Seen by Provider: 08/17/17 23:36 TRAVEL OUTSIDE OF THE [place] IN LAST 30 DAYS: No - HPI Notes: 37-year-old female presents with epigastric pain. Patient has a history of "ulcers" which was diagnosed with remotely. She takes intermittent ibuprofen secondary to migraines. Describes gradual onset of the last day of epigastric pain. Burning sharp and achy. Nonradiating. Nausea and vomiting, no coffee grounds or hematemesis. No dark tarry stools. She has had a previous cholecystectomy and appendectomy. No other modifying factors, no other associated symptoms, no other provocative or palliative factors. - Related Data Allergies/Adverse Reactions: cephalexin monohydrate [From Keflex] Allergy (Verified 09/11/16 17:41) ketorolac [From Toradol] Allergy (Verified 01/27/17 21:57) tramadol Allergy (Verified 01/27/17 21:57) Past Medical History - Social History Smoking Status: Current Every Day Smoker Frequency of alcohol use: Rare Drug Abuse: None Family History: Reviewed & Not Pertinent Patient has suicidal ideation: No Patient has homicidal ideation: No - Medical History Notes: History of ulcer disease - Past Medical History Cardiac Medical History: Denies: Hx Coronary Artery Disease, Hx Hypertension Pulmonary Medical History: Denies: Hx Asthma Neurological Medical History: Reports: Hx Migraine Endocrine Medical History: Denies: Hx Diabetes Mellitus Type 1, Hx Diabetes Mellitus Type 2 Renal/ Medical History: Reports: Hx Ovarian Cysts. Denies: Hx Peritoneal Dialysis GI Medical History: Reports: Hx Gastritis Musculoskeltal Medical History: Reports Hx Musculoskeletal Deformity - both arm and left foot, Reports Hx Musculoskeletal Trauma Past Surgical History: Reports: Hx Appendectomy - 01, Hx Cholecystectomy - 04, Hx Hysterectomy. Denies: Hx Section - Immunizations Immunizations up to date: Yes Hx Diphtheria, Pertussis, Tetanus Vaccination: Yes - 2006 Review of Systems - Review of Systems Notes: Review of systems as in the history of present illness, otherwise negative. Physical Exam - Vital signs Vitals: Temp Pulse Resp BP Pulse Ox 98.4 F 110 H 18 146/90 H 99 08/17/17 23:10 08/17/17 23:10 08/17/17 23:10 08/17/17 23:10 08/17/17 23:10 - Notes Notes: General: Well developed . HEENT: Normocephalic, atraumatic. Pupils equal round reactive to light. No JVD. Chest: No trauma. Respiratory: Good air exchange, normal excursion. Cardiac: Regular rhythm. No murmurs or gallops. Abdomen: Soft, benign. Nondistended. Moderate epigastric and midabdominal tenderness Back: No asymmetry or gross abnormality. Motor: Grossly normal power and tone. Neurologic: Alert, nonfocal. Cranial nerves II-12 are intact. Sensation intact. Vascular: Well perfused. Normal peripheral pulses. Skin: No petechiae or purpura. Course - Re-evaluation Re-evalutation: 08/18/17 01:40 37-year-old female the after mentioned symptoms. Consider gastritis, peptic ulcer disease, biliary disease or pancreatitis. We will proceed with IV fluids , analgesics and antiemetics labs, reassess. He was noted to have continuous persistent abdominal pain relatively severe. She is receiving additional IV opiate analgesics, will proceed with CT imaging evaluate for complication or perforation. 08/18/17 02:08 CT imaging is unremarkable. Patient has had substantial improvement with therapy. I strong suspicion is for gastritis or peptic ulcer disease. She is discharged home with a prescription for proton pump inhibitor, Carafate, outpatient follow-up. - Vital Signs Vital signs: Temp Pulse Resp BP Pulse Ox 98.4 F 110 H 18 146/90 H 99 08/17/17 23:10 08/17/17 23:10 08/17/17 23:10 08/17/17 23:10 08/17/17 23:10 - Laboratory Result Diagrams: 08/17/17 23:35 08/17/17 23:35 Laboratory results interpreted by me: 08/17/17 08/17/17 23:35 23:35 WBC 16.2 H Absolute Neutrophils 8.6 H Absolute Lymphocytes 6.0 H Chloride 109 H Carbon Dioxide 20 L Calcium 10.3 H Discharge - Discharge Clinical Impression: Epigastric pain Disposition: HOME, SELF-CARE Instructions: Abdominal Pain ([facility]), Ulcer ([facility]) Prescriptions: Pantoprazole Sodium [Protonix] 20 mg PO DAILY #30 tablet. Sucralfate [Carafate Susp 1 Gm/10 Ml Udcup] 1 gm PO BID 7 Days udc
--- NOTE | 2017-08-18 02:02 | RADIOLOGY REPORT (SQ) ---
EXAM DESCRIPTION: CT ABDOMEN PELVIS WITH IV CONTRAST CLINICAL HISTORY: 37 years Female, Severe abd pain, hx ulcer disease Comparison: None. Technique: IV contrast. Coronal and sagittal reformat. This exam was performed according to our departmental dose-optimization program, which includes automated exposure control, adjustment of the mA and/or kV according to patient size and/or use of iterative reconstruction technique.[facility]: Dose Right [facility]: CareDose [facility]: Dose Right [facility]: Teradose 4D [facility]: [employer] LIMITATIONS: None. Findings: No free fluid. No free air. No obstruction. Inferior thorax, liver, cholecystectomy clips, pancreas, spleen, adrenals, renal system, gastrointestinal tract, pelvic organs, lymphatics, vasculature, and musculoskeleton appear otherwise unremarkable. IMPRESSION: No acute findings.
[2017-08-18 02:39] VITALS: BP 139/89
--- NOTE | 2017-08-18 07:17 | EKG REPORT ---
SEVERITY:- OTHERWISE NORMAL ECG - SINUS RHYTHM BORDERLINE LEFT AXIS DEVIATION : Confirmed by: Dangelo Mcmillan MD 18-Aug-2017 07:16:56
== END 2017-08-18 02:37 | disposition home or self-care (01) ==
LOC: ER 23:05
DX: R10.13 Epigastric pain (principal); F17.200 Nicotine dependence, unspecified, uncomplicated; Z90.49 Acquired absence of other specified parts of digestive tract; Z90.710 Acquired absence of both cervix and uterus
CPT/HCPCS: 93005; 99284; 96361; 96374; 96375; 36415; 83690; 85025; 80053; 74177; 93010; J1200; J1170; J0780; J7030

== ENCOUNTER 2017-08-18 22:38 | Emergency (ER) | payer SELFPAY ==
[2017-08-19] MEDS ORDERED: HYDROMORPHONE HCL INJ/PF 2 MG/ML AMPULE IV ONE (02:01)
[2017-08-19] MEDS ORDERED: PANTOPRAZOLE SODIUM 40 MG VIAL IV ONE (02:01)
[2017-08-19] MEDS ORDERED: ONDANSETRON HCL INJ/PF 4 MG/2 ML SDV IV ONE (02:02)
[2017-08-19] MEDS ORDERED: METOCLOPRAMIDE HCL INJ/PF 10 MG/2 ML SDV IV ONE (02:28)
--- NOTE | 2017-08-19 02:29 | ER Document Report ---
ED General - General Chief Complaint: Nausea/Vomiting Stated Complaint: VOMITING Time Seen by Provider: 08/19/17 01:36 Notes: Patient is 37-year-old female presents with complaint of continued epigastric pain. She also had 2 episodes of vomiting which she said was bright red blood. She is former alcoholic. She quit approximately 14 years ago. She says she does not drink anymore. No diarrhea. She did have an endoscopy several years ago. She does not member the results of it. This was performed by Dr. Martínez. She was seen yesterday in the ER. She was placed on Carafate. At that time her hemoglobin is normal there is CT scan of abdomen pelvis was normal. She says she continues have pain and started having vomiting blood and therefore she came to ER. She did take Phenergan for nausea at home. She has no other complaints at this time. She denies any NSAID use. TRAVEL OUTSIDE OF THE [place] IN LAST 30 DAYS: Yes - Related Data Allergies/Adverse Reactions: cephalexin monohydrate [From Keflex] Allergy (Verified 09/11/16 17:41) ketorolac [From Toradol] Allergy (Verified 01/27/17 21:57) tramadol Allergy (Verified 01/27/17 21:57) Past Medical History - Social History Smoking Status: Unknown if Ever Smoked Chew tobacco use (# tins/day): No Frequency of alcohol use: None Drug Abuse: None Family History: Reviewed & Not Pertinent Patient has suicidal ideation: No Patient has homicidal ideation: No - Past Medical History Cardiac Medical History: Denies: Hx Coronary Artery Disease, Hx Hypertension Pulmonary Medical History: Denies: Hx Asthma Neurological Medical History: Reports: Hx Migraine Endocrine Medical History: Denies: Hx Diabetes Mellitus Type 1, Hx Diabetes Mellitus Type 2 Renal/ Medical History: Reports: Hx Ovarian Cysts. Denies: Hx Peritoneal Dialysis GI Medical History: Reports: Hx Gastritis Musculoskeltal Medical History: Reports Hx Musculoskeletal Deformity - both arm and left foot, Reports Hx Musculoskeletal Trauma Past Surgical History: Reports: Hx Appendectomy - 01, Hx Cholecystectomy - 04, Hx Hysterectomy. Denies: Hx Section - Immunizations Immunizations up to date: Yes Hx Diphtheria, Pertussis, Tetanus Vaccination: Yes - 2006 Review of Systems - Review of Systems Notes: My Normal Review Basic REVIEW OF SYSTEMS: CONSTITUTIONAL : Denies fever, chills, or sweats. Denies recent illness. RESPIRATORY: Denies cough, cold, or chest congestion. Denies shortness of breath, difficulty breathing, or wheezing. GASTROINTESTINAL: Epigastric abdominal pain. Vomiting. GENITOURINARY: Denies difficulty urinating, painful urination, burning, frequency, or blood in urine. MUSCULOSKELETAL: Denies neck or back pain or joint pain or swelling. SKIN: Denies rash or skin lesions. HEMATOLOGIC : Denies easy bruising or bleeding. NEUROLOGICAL: Denies altered mental status or loss of consciousness. Denies headache. Denies weakness or paralysis or loss of use of either side. Denies problems with gait or speech. Denies sensory or motor loss. ALL OTHER SYSTEMS REVIEWED AND NEGATIVE. Physical Exam - Vital signs Vitals: Temp Pulse Resp BP Pulse Ox 98.7 F 112 H 20 140/85 H 100 08/18/17 22:45 08/18/17 22:45 08/18/17 22:45 08/18/17 22:45 08/18/17 22:45 - Notes Notes: General Appearance: Well nourished, alert, cooperative, no acute distress, moderate obvious discomfort. Vitals: reviewed, See vital signs table. Head: no swelling or tenderness to the head Eyes: PERRL, EOMI, Conjuctiva clear Mouth: No decreasd moisture Lungs: No wheezing, No rales, No rhonci, No accessory muscle use, good air exchange bilaterally. Heart: Normal rate, Regular rythm, No murmur, no rub Abdomen: Normal BS, soft, No rigidity, epigastric abdominal tenderness to palpation. Remainder of abdomen is nontender., No guarding, no rebound, no abdominal masses, no organomegaly Extremities: strength 5/5 in all extremities, good pulses in all extremities, no swelling or tenderness in the extremities, no edema. Skin: warm, dry, appropriate color, no rash Neuro: speech clear, oriented x 3, normal affect, responds appropriately to questions. Course - Re-evaluation Re-evalutation: 08/19/17 03:10 Patient's pain is much improved. Her vital signs remained normal. Hemoglobin is actually unchanged from yesterday. Is unlikely that she has a significant upper GI bleed at this time. I have obtained a stool guaiac and we will send to the lab. 08/19/17 04:47 Guaiac is negative. Patient's heart rate remains normal. She looks well. She is having pain again request more Dilaudid. At this time and did not think the last appropriate medication is will not last long. We will give her a dose [place] and sent home with a few [place] to go home with. I do not think patient has a significant upper GI bleed as her hemoglobin is unchanged from yesterday she has not had any vomiting of blood here in her stool guaiac is negative. Vital signs are also stable. Informed patient that she does need to call the GI doctor to make a close follow-up appointment. I gave her the numbers to 3 different GI physicians. I encouraged her return to ER if she has recurrent vomiting blood, fevers, or feels unwell. She does have a previous history of alcoholism but has never had a history of esophageal varices nor has a history of liver failure. Liver enzymes are negative and INR is normal. I do not suspect esophageal varices. Patient's pain is all in the epigastric region. Suggest most likely has a gastritis or ulcer. Patient is already on PPI therapy at home with Carafate. I encouraged her to continue take this. I asked her about her diet. She has been drinking Mountain Dew and orange juice. I informed her that both leads can make her symptoms much worse whenever she should only drink water. Patient is agreeable to this. Dictation of this chart was performed using voice recognition software; therefore, there may be some unintended grammatical errors. - Vital Signs Vital signs: Temp Pulse Resp BP Pulse Ox 98.7 F 74 16 120/67 96 08/18/17 22:45 08/19/17 02:45 08/19/17 03:01 08/19/17 03:01 08/19/17 03:01 - Laboratory Result Diagrams: 08/19/17 02:20 08/19/17 02:20 Laboratory results interpreted by me: 08/19/17 08/19/17 02:20 02:20 WBC 13.6 H Plt Count 460 H Absolute Lymphocytes 5.7 H Sodium 145.7 H Chloride 110 H Calcium 10.4 H Discharge - Discharge Clinical Impression: Epigastric pain Vomiting Qualifiers: Vomiting type: unspecified Vomiting Intractability: unspecified Nausea presence : with nausea Qualified Code(s): R11.2 - Nausea with vomiting, unspecified Instructions: Oral Narcotic Medication ([facility]) Additional Instructions: Please continue to take the carafate. Please only drink water. Do not drink Mountain Dew or [place] Juice. Please only take the [place] for break through pain. Please be aware that [place] has Tylenol in it so be sure not to take more than 4,000mg of tylenol a day when taking the [place] and Tylenol. Please call the GI physician tomorrow to make a close follow up appointment return to the ER if you have recurrence of vomiting blood, worsening pain, or feel unwell. Prescriptions: Hydrocodone/Acetaminophen [[place] 5-325 mg Tablet] 1 tab PO Q4 PRN #10 tablet PRN Reason: For Breakthrough Pain Forms: Return to Work Referrals: VIJAY GONZALEZ MD [ACTIVE STAFF] - Follow up in 3-5 days NICOLE CURRY MD [ACTIVE STAFF] - Follow up in 3-5 days BRII WYNNE MD [ACTIVE STAFF] - Follow up in 3-5 days
[2017-08-19 02:34] LABS: ABSOLUTE BASOPHILS # (AUTO) 0.1 10^3/uL (0.0-0.2); ABSOLUTE EOSINOPHILS # (AUTO) 0.2 10^3/uL (0.0-0.6); ABSOLUTE LYMPHOCYTES (AUTO) 5.7 10^3/uL (0.5-4.7); ABSOLUTE MONOCYTES (AUTO) 0.9 10^3/uL (0.1-1.4); ABSOLUTE NEUT (AUTO) 6.7 10^3/uL (1.7-8.2); BASOPHILS % (AUTO) 0.9 % (0-2); EOSINOPHILS % (AUTO) 1.3 % (0-6); HEMATOCRIT 40.8 % (36.0-47.0); HEMOGLOBIN 13.6 g/dL (12.0-15.5); LYMPHOCYTES % (AUTO) 41.6 % (13-45); MEAN CORPUSCULAR HEMOGLOBIN 29.6 pg (27.0-33.4); MEAN CORPUSCULAR HGB CONC 33.3 g/dL (32.0-36.0); MEAN CORPUSCULAR VOLUME 89 fl (80-97); MONOCYTES % (AUTO) 6.8 % (3-13); PLATELET COUNT 460 10^3/uL (150-450); SEGMENTED NEUTROPHILS % (AUTO) 49.4 % (42-78); TOTAL CELLS COUNTED % (AUTO) 100 %; WHITE BLOOD COUNT 13.6 10^3/uL (4.0-10.5)
[2017-08-19 02:40] LABS: INTERNATIONAL RATION (INR) 0.85
[2017-08-19 02:41] LABS: PARTIAL THROMBOPLASTIN TIME 27.3 SEC (23.5-35.8)
--- NOTE | 2017-08-19 02:41 | RADIOLOGY REPORT (SQ) ---
EXAM DESCRIPTION: XR CHEST 1 VIEW CLINICAL HISTORY: 37 years Female, upper abdominal pain, show diaphragm COMPARISON: 5.28.17. NUMBER OF VIEWS/TECHNIQUE: 1/AP FINDINGS: Adequate lung volume, clear parenchyma, normal cardiac silhouette, and intact bony thorax. IMPRESSION: No acute cardiopulmonary findings.
[2017-08-19 02:51] LABS: ALANINE AMINOTRANSFERASE 38 U/L (9-52); ALBUMIN 4.5 g/dL (3.5-5.0); ALKALINE PHOSPHATASE 81 U/L (38-126); ANION GAP 14 (5-19); ASPARTATE AMINO TRANSFERASE 21 U/L (14-36); BILIRUBIN,DIRECT 0.3 mg/dL (0.0-0.4); BILIRUBIN,TOTAL 0.3 mg/dL (0.2-1.3); BLOOD UREA NITROGEN 17 mg/dL (7-20); CALCIUM 10.4 mg/dL (8.4-10.2); CARBON DIOXIDE 22 mmol/L (22-30); CHLORIDE 110 mmol/L (98-107); GLUCOSE 101 mg/dL (75-110); LIPASE 218.2 U/L (23-300); POTASSIUM 4.7 mmol/L (3.6-5.0); SODIUM 145.7 mmol/L (137-145); TOTAL PROTEIN 7.5 g/dL (6.3-8.2)
[2017-08-19] MEDS ORDERED: HYDROCODONE/ACETAMINOPHEN 5-325 MG (6 TAB/ER DISP) PO PRN (04:36)
[2017-08-19 04:50] VITALS: BP 128/79
== END 2017-08-19 04:54 | disposition home or self-care (01) ==
LOC: ER 22:38
DX: R10.13 Epigastric pain (principal); R11.2 Nausea with vomiting, unspecified; F10.21 Alcohol dependence, in remission
CPT/HCPCS: 99284; 96374; 96375; 36415; 83690; 85025; 85610; 85730; 82272; 80053; 71045; J2765; J1170; S0164

== ENCOUNTER 2017-08-28 03:04 | Emergency (ER) | payer SELFPAY ==
[2017-08-28] MEDS ORDERED: DICYCLOMINE HCL INJ 20 MG/2 ML AMPULE IM ONE (03:33)
[2017-08-28] MEDS ORDERED: DIAZEPAM INJ 10 MG/2 ML DISP.SYRIN IV ONE (03:33)
--- NOTE | 2017-08-28 03:38 | ER Document Report ---
ED General - General Chief Complaint: Abdominal Pain Stated Complaint: BACK,ABDOMINAL PAIN Time Seen by Provider: 08/28/17 03:22 Notes: Patient is a 37-year-old female presents with recurrent abdominal pain. She has history of pancreatitis in the past. She also has history of acid reflux and gastritis. I saw her approximately a week ago. At that time she was told to stop drinking orange juice and Mountain Dew. She says she has cut back on these. She says she has been doing well until tonight she started having pain again therefore came to ER. Pain is actually mostly right upper quadrant this time. She has had a cholecystectomy and appendectomy in the past. Denies any alcohol use. She has been vomiting but no blood or emesis. No fevers. No other complaints at this time. TRAVEL OUTSIDE OF THE [place] IN LAST 30 DAYS: Yes - Related Data Allergies/Adverse Reactions: cephalexin monohydrate [From Keflex] Allergy (Verified 09/11/16 17:41) ketorolac [From Toradol] Allergy (Verified 01/27/17 21:57) tramadol Allergy (Verified 01/27/17 21:57) Past Medical History - Social History Smoking Status: Unknown if Ever Smoked Frequency of alcohol use: None Drug Abuse: None Family History: Reviewed & Not Pertinent - Past Medical History Cardiac Medical History: Denies: Hx Coronary Artery Disease, Hx Hypertension Pulmonary Medical History: Denies: Hx Asthma Neurological Medical History: Reports: Hx Migraine Endocrine Medical History: Denies: Hx Diabetes Mellitus Type 1, Hx Diabetes Mellitus Type 2 Renal/ Medical History: Reports: Hx Ovarian Cysts. Denies: Hx Peritoneal Dialysis GI Medical History: Reports: Hx Gastritis Musculoskeltal Medical History: Reports Hx Musculoskeletal Deformity - both arm and left foot, Reports Hx Musculoskeletal Trauma Past Surgical History: Reports: Hx Appendectomy - 01, Hx Cholecystectomy - 04, Hx Hysterectomy. Denies: Hx Section - Immunizations Immunizations up to date: Yes Hx Diphtheria, Pertussis, Tetanus Vaccination: Yes - 2006 Review of Systems - Review of Systems Notes: My Normal Review Basic REVIEW OF SYSTEMS: CONSTITUTIONAL : Denies fever, chills, or sweats. Denies recent illness. RESPIRATORY: Denies cough, cold, or chest congestion. Denies shortness of breath, difficulty breathing, or wheezing. GASTROINTESTINAL: Upper quadrant abdominal pain and vomiting. GENITOURINARY: Denies difficulty urinating, painful urination, burning, frequency, or blood in urine. FEMALE GENITOURINARY: Denies vaginal bleeding, abnormal or irregular periods. MUSCULOSKELETAL: Denies neck or back pain or joint pain or swelling. SKIN: Denies rash or skin lesions. NEUROLOGICAL: Denies altered mental status or loss of consciousness. Denies headache. Denies weakness or paralysis or loss of use of either side. Denies problems with gait or speech. Denies sensory or motor loss. ALL OTHER SYSTEMS REVIEWED AND NEGATIVE. Physical Exam - Vital signs Vitals: Temp Pulse Resp BP Pulse Ox 97.9 F 97 20 149/110 H 97 08/28/17 03:11 08/28/17 03:11 08/28/17 03:11 08/28/17 03:11 08/28/17 03:11 - Notes Notes: General Appearance: Well nourished, alert, cooperative, no acute distress, no obvious discomfort. Appearing. Vitals: reviewed, See vital signs table. Head: no swelling or tenderness to the head Eyes: PERRL, EOMI, Conjuctiva clear Mouth: No decreasd moisture Lungs: No wheezing, No rales, No rhonci, No accessory muscle use, good air exchange bilaterally. Heart: Normal rate, Regular rythm, No murmur, no rub Abdomen: Normal BS, soft, No rigidity, moderate right upper quadrant abdominal tenderness palpation, No guarding, no rebound, no abdominal masses Extremities: strength 5/5 in all extremities, good pulses in all extremities, no swelling or tenderness in the extremities, no edema. Skin: warm, dry, appropriate color, no rash Neuro: speech clear, oriented x 3, normal affect, responds appropriately to questions. Course - Re-evaluation Re-evalutation: 08/28/17 06:31 The exact cause of the patient's chronic recurrent abdominal pain is really not clear. Continues to be epigastric and therefore used to think is could be potentially gastritis or ulcer related. Her emesis today was just yellow in color. She did not have any blood in her emesis. Hemoglobin is stable. Her white count is not significantly elevated. She seems anxious when she gets the pain. I do not know if there is a possible component of irritable bowel syndrome associated with this. I did not obtain a CT scan as she does not have a turning leukocytosis and she does have a CT scan just over a week ago that was normal. Patient is feeling improved. I encourage her to continue take her Protonix and also take the Carafate. She says she does not need any further prescriptions are related to these medicines as she already has them at home. I talked about the importance of following up with the GI doctor. She says that Medicaid told her that she does have insurance however the doctor told her it is not coming through and therefore she said the [facility] specialist is helping her get into the GI physician. Encouraged her return to ER if she has worsening intractable pain, fevers, vomiting of blood, or she feels unwell. Patient agrees with plan will be discharged home. Dictation of this chart was performed using voice recognition software; therefore, there may be some unintended grammatical errors. - Vital Signs Vital signs: Temp Pulse Resp BP Pulse Ox 97.9 F 97 21 H 137/89 H 97 08/28/17 03:11 08/28/17 03:11 08/28/17 04:10 08/28/17 04:10 08/28/17 04:10 - Laboratory Result Diagrams: 08/28/17 04:00 08/28/17 04:00 Laboratory results interpreted by me: 08/28/17 08/28/17 04:00 04:00 WBC 11.6 H Absolute Lymphocytes 5.2 H Chloride 112 H Carbon Dioxide 20 L Discharge - Discharge Clinical Impression: Abdominal pain Qualifiers: Abdominal location: right upper quadrant Qualified Code(s): R10.11 - Right upper quadrant pain Condition: Good Disposition: HOME, SELF-CARE Additional Instructions: Please follow up closely with the GI physician. I have provided the number to 3 different GI doctors. Please return to the ER immediately if you have worsening pain, intractable vomiting, fevers, or have further concerns. Please contnue to take the Protonix and Carafate. Please eat a very bland diet and drink only clear liquids. Forms: Return to Work Referrals: BRII WYNNE MD [ACTIVE STAFF] - Follow up in 3-5 days NICOLE CURRY MD [ACTIVE STAFF] - Follow up in 3-5 days VIJAY GONZALEZ MD [ACTIVE STAFF] - Follow up in 3-5 days
[2017-08-28 04:11] LABS: ABSOLUTE BASOPHILS # (AUTO) 0.1 10^3/uL (0.0-0.2); ABSOLUTE EOSINOPHILS # (AUTO) 0.2 10^3/uL (0.0-0.6); ABSOLUTE LYMPHOCYTES (AUTO) 5.2 10^3/uL (0.5-4.7); ABSOLUTE MONOCYTES (AUTO) 0.9 10^3/uL (0.1-1.4); ABSOLUTE NEUT (AUTO) 5.2 10^3/uL (1.7-8.2); BASOPHILS % (AUTO) 0.9 % (0-2); EOSINOPHILS % (AUTO) 1.6 % (0-6); HEMATOCRIT 38.9 % (36.0-47.0); HEMOGLOBIN 13.1 g/dL (12.0-15.5); MEAN CORPUSCULAR HEMOGLOBIN 29.9 pg (27.0-33.4); MEAN CORPUSCULAR HGB CONC 33.6 g/dL (32.0-36.0); MEAN CORPUSCULAR VOLUME 89 fl (80-97); MONOCYTES % (AUTO) 7.5 % (3-13); PLATELET COUNT 440 10^3/uL (150-450); RED BLOOD COUNT 4.36 10^6/uL (3.72-5.28); RED CELL DISTRIBUTION WIDTH 13.7 % (11.5-14.0); TOTAL CELLS COUNTED % (AUTO) 100 %; WHITE BLOOD COUNT 11.6 10^3/uL (4.0-10.5)
[2017-08-28 04:34] LABS: ALANINE AMINOTRANSFERASE 32 U/L (9-52); ALBUMIN 4.2 g/dL (3.5-5.0); ALKALINE PHOSPHATASE 62 U/L (38-126); ANION GAP 11 (5-19); ASPARTATE AMINO TRANSFERASE 20 U/L (14-36); BILIRUBIN,DIRECT 0.2 mg/dL (0.0-0.4); BILIRUBIN,TOTAL 0.2 mg/dL (0.2-1.3); BLOOD UREA NITROGEN 10 mg/dL (7-20); CALCIUM 9.8 mg/dL (8.4-10.2); CARBON DIOXIDE 20 mmol/L (22-30); CHLORIDE 112 mmol/L (98-107); GLUCOSE 102 mg/dL (75-110); LIPASE 179.6 U/L (23-300); POTASSIUM 3.8 mmol/L (3.6-5.0); SODIUM 142.9 mmol/L (137-145)
[2017-08-28] MEDS ORDERED: MORPHINE SULFATE 10 MG/ML INJ IV ONE (05:23)
[2017-08-28] MEDS ORDERED: ONDANSETRON HCL INJ/PF 4 MG/2 ML SDV IV ONE (05:23)
[2017-08-28] MEDS ORDERED: PROMETHAZINE HCL INJ 25 MG/1 ML VIAL IM ONE (05:23)
[2017-08-28 06:21] LABS: APPEARANCE,URINE CLEAR; BILIRUBIN,URINE NEGATIVE (NEGATIVE); COLOR,URINE YELLOW; GLUCOSE, URINE NEGATIVE (NEGATIVE); KETONES,URINE NEGATIVE (NEGATIVE); LEUKOCYTE ESTERASE,URINE NEGATIVE (NEGATIVE); NITRITE,URINE NEGATIVE (NEGATIVE); PROTEIN,URINE NEGATIVE (NEGATIVE); URINE SPECIFIC GRAVITY 1.018; UROBILINOGEN,URINE NEGATIVE mg/dL (<2.0)
[2017-08-28 06:42] VITALS: BP 134/95
== END 2017-08-28 06:42 | disposition home or self-care (01) ==
LOC: ER 03:04
DX: R10.11 Right upper quadrant pain (principal); R10.13 Epigastric pain; R11.10 Vomiting, unspecified; Z87.19 Personal history of other diseases of the digestive system; Z90.49 Acquired absence of other specified parts of digestive tract; Z88.1 Allergy status to other antibiotic agents; Z88.8 Allergy status to other drugs, medicaments and biological substances; Z88.5 Allergy status to narcotic agent
CPT/HCPCS: 99284; 96372; 96374; 96375; 36415; 83690; 84703; 85025; 80053; 81001; J3360; J0500; J2270; J2550; J2405

== ENCOUNTER 2017-09-03 18:47 | Emergency (ER) | payer SELFPAY ==
[2017-09-03] MEDS ORDERED: MAG HYDROX/AL HYDROX/SIMETH SUSP 30 ML UDCUP PO ONE (20:43)
[2017-09-03] MEDS ORDERED: LIDOCAINE 2% VISCOUS SOLN 20 ML UDCUP PO ONE (20:43)
[2017-09-03] MEDS ORDERED: METOCLOPRAMIDE HCL ORAL SOLN 10 MG/10 ML UDCUP PO ONE (20:43)
--- NOTE | 2017-09-03 20:43 | ER Document Report ---
ED Medical Screen (RME) - General Chief Complaint: Abdominal Pain Stated Complaint: VOMITING/ABDOMINAL PAIN Time Seen by Provider: 09/03/17 20:33 Notes: Patient is a 37-year-old female who returns emergency department complaining of epigastric pain radiating to right upper quadrant. Patient states that this is consistent with her previous episodes of epigastric pain. Patient continually mentioning that she has been in and out of this emergency department over the past 6 weeks for similar symptoms. She has not been able to follow-up with a business education teacher or primary care provider. She admits to approximately 6 episodes of emesis today without any evidence of coffee-ground emesis. She admits to loose bowel movements today. TRAVEL OUTSIDE OF THE [place] IN LAST 30 DAYS: Yes - Related Data Allergies/Adverse Reactions: cephalexin monohydrate [From Keflex] Allergy (Verified 09/03/17 20:20) ketorolac [From Toradol] Allergy (Verified 09/03/17 20:20) tramadol Allergy (Verified 09/03/17 20:20) Past Medical History - Social History Frequency of alcohol use: Rare Drug Abuse: None - Past Medical History Cardiac Medical History: Denies: Hx Coronary Artery Disease, Hx Hypertension Pulmonary Medical History: Denies: Hx Asthma Neurological Medical History: Reports: Hx Migraine Endocrine Medical History: Denies: Hx Diabetes Mellitus Type 1, Hx Diabetes Mellitus Type 2 Renal/ Medical History: Reports: Hx Ovarian Cysts. Denies: Hx Peritoneal Dialysis GI Medical History: Reports: Hx Gastritis Musculoskeltal Medical History: Reports Hx Musculoskeletal Deformity - both arm and left foot, Reports Hx Musculoskeletal Trauma Past Surgical History: Reports: Hx Appendectomy - 01, Hx Cholecystectomy - 04, Hx Hysterectomy. Denies: Hx Section - Immunizations Immunizations up to date: Yes Hx Diphtheria, Pertussis, Tetanus Vaccination: Yes - 2006 Physical Exam - Vital signs Vitals: Temp Pulse Resp BP Pulse Ox 98.0 F 97 20 135/90 H 99 09/03/17 19:05 09/03/17 19:05 09/03/17 19:05 09/03/17 19:05 09/03/17 19:05 - Notes Notes: PHYSICAL EXAM GENERAL: Alert, interacts well. ABDOMEN: Soft, nondistended, epigastric tenderness without guarding, rebound, or rigidity. NEUROLOGICAL: Alert and oriented x4. Normal speech. PSYCH: Normal affect, normal mood. SKIN: Warm, dry, normal turgor. No rashes or lesions noted. Course - Vital Signs Vital signs: Temp Pulse Resp BP Pulse Ox 98.0 F 97 20 135/90 H 99 09/03/17 19:05 09/03/17 19:05 09/03/17 19:05 09/03/17 19:05 09/03/17 19:05
[2017-09-03] MEDS ORDERED: MORPHINE SULFATE 10 MG/ML INJ IV ONE (21:17)
[2017-09-03] MEDS ORDERED: PANTOPRAZOLE SODIUM 40 MG VIAL IV ONE (21:17)
--- NOTE | 2017-09-03 21:33 | ER Document Report ---
ED GI/ - General Chief Complaint: Abdominal Pain Stated Complaint: VOMITING/ABDOMINAL PAIN Time Seen by Provider: 09/03/17 20:33 Notes: Patient is a 37-year-old female comes emergency department for chief complaint of sharp pain in her upper abdomen, she states that she has had frequent pain recently, she was placed on Protonix and Carafate, she states she has been doing better, she states the pain became sharp today so she came in for evaluation. She denies vomiting but does report nausea. She states she thinks she had a black stool episode just prior to arrival, unsure of previous episodes or black or not. She denies any alcohol, states she used to drink heavily but has not in a long time, she states 2 years ago she had an endoscopy that showed peptic ulcers. She admits to drinking caffeinated drinks and orange juice but denies smoking, NSAIDs. She denies fever, flank pain, chest pain. TRAVEL OUTSIDE OF THE [place] IN LAST 30 DAYS: Yes - Related Data Allergies/Adverse Reactions: cephalexin monohydrate [From Keflex] Allergy (Verified 09/03/17 20:20) ketorolac [From Toradol] Allergy (Verified 09/03/17 20:20) tramadol Allergy (Verified 09/03/17 20:20) Past Medical History - General Information source: Patient - Social History Smoking Status: Current Every Day Smoker Smoking Education Provided: Yes - <3 min Frequency of alcohol use: Rare Drug Abuse: None Lives with: Family Family History: Reviewed & Not Pertinent Patient has suicidal ideation: No Patient has homicidal ideation: No - Past Medical History Cardiac Medical History: Denies: Hx Coronary Artery Disease, Hx Hypertension Pulmonary Medical History: Denies: Hx Asthma Neurological Medical History: Reports: Hx Migraine Endocrine Medical History: Denies: Hx Diabetes Mellitus Type 1, Hx Diabetes Mellitus Type 2 Renal/ Medical History: Reports: Hx Ovarian Cysts. Denies: Hx Peritoneal Dialysis GI Medical History: Reports: Hx Gastritis Musculoskeltal Medical History: Reports Hx Musculoskeletal Deformity - both arm and left foot, Reports Hx Musculoskeletal Trauma Past Surgical History: Reports: Hx Appendectomy - 01, Hx Cholecystectomy - 04, Hx Hysterectomy. Denies: Hx Section - Immunizations Immunizations up to date: Yes Hx Diphtheria, Pertussis, Tetanus Vaccination: Yes - 2006 Review of Systems - Review of Systems Constitutional: No symptoms reported EENT: No symptoms reported Cardiovascular: No symptoms reported Respiratory: No symptoms reported Gastrointestinal: See HPI Genitourinary: No symptoms reported Female Genitourinary: No symptoms reported Musculoskeletal: No symptoms reported Skin: No symptoms reported Hematologic/Lymphatic: No symptoms reported Neurological/Psychological: No symptoms reported Physical Exam - Vital signs Vitals: Temp Pulse Resp BP Pulse Ox 98.0 F 97 20 135/90 H 99 09/03/17 19:05 09/03/17 19:05 09/03/17 19:05 09/03/17 19:05 09/03/17 19:05 - Notes Notes: GENERAL: Alert, interacts well. Appears anxious but does not appear to be in distress HEAD: Normocephalic, atraumatic. EYES: Pupils equal, round, and reactive to light. Extraocular movements intact. ENT: Oral mucosa moist, tongue midline. NECK: Full range of motion. Supple. Trachea midline. LUNGS: Clear to auscultation bilaterally, no wheezes, rales, or rhonchi. No respiratory distress. HEART: Regular rate and rhythm. No murmur ABDOMEN: Mild generalized upper abdominal tenderness, nonspecific, no guarding. Non-distended. Bowel sounds present in all 4 quadrants. EXTREMITIES: Moves all 4 extremities spontaneously. No edema, normal radial and dorsalis pedis pulses bilaterally. No cyanosis. BACK: no cervical, thoracic, lumbar midline tenderness. No saddle anesthesia, normal distal neurovascular exam. NEUROLOGICAL: Alert and oriented x3. Normal speech. [cranial nerves II through XII grossly intact]. PSYCH: Anxious but makes good eye contact, consolable SKIN: Warm, dry, normal turgor. No rashes or lesions noted. Course - Re-evaluation Re-evalutation: Patient initially anxious appearing, rocking on the bed, she has generalized upper abdominal pain without specific areas of tenderness, no guarding suggesting acute abdomen. Her vital signs are unremarkable. CBC shows minimal leukocytosis with no shift. No anemia. Chemistry unremarkable except for mildly elevated LFTs, patient states she has been taking a lot of Tylenol lately, I suspect this is related because her right upper quadrant is not particularly tender. Lipase is unremarkable. Patient reported black stools but her stools are brown on exam and there is negative Hemoccult. Very low suspicion of upper abdominal bleed, perforation, acute abdomen. I discussed this with patient. She already is working with foster care case manager to get a GI follow-up and endoscopy performed, she will be continuing her medications and having Pepcid added to this, I provided a few pain medicine because I do not want her taking NSAIDs and she is taking a lot of Tylenol, told her to take these only if absolutely needed, discussed return precautions in detail, patient states satisfaction and agreement. Well- appearing and stable at time of discharge. - Vital Signs Vital signs: Temp Pulse Resp BP Pulse Ox 97.8 F 78 16 136/87 H 100 09/03/17 23:33 09/03/17 23:33 09/03/17 23:33 09/03/17 23:33 09/03/17 23:33 - Laboratory Result Diagrams: 09/03/17 22:02 09/03/17 22:02 Laboratory results interpreted by me: 09/03/17 09/03/17 09/03/17 19:15 22:02 22:02 WBC 11.2 H Calcium 10.3 H AST 82 H ALT 123 H Urine Urobilinogen 2.0 H Discharge - Discharge Clinical Impression: Upper abdominal pain Condition: Stable Disposition: HOME, SELF-CARE Additional Instructions: No blood is in your stool, your symptoms are most consistent with gastritis/ peptic ulcer disease, continue Carafate, continue Protonix, and the Pepcid as prescribed, only take pain medication prescribed if needed, take Tylenol for pain otherwise. Avoid NSAIDs, smoking, alcohol, spicy food, caffeinated drinks. Please follow-up with gastroenterology referral as we discussed. Return if you worsen including vomiting blood, black stools, severe pain, fever , or any other concerning or worsening symptoms. Prescriptions: Morphine Sulfate [Morphine Ir 15 Mg Tablet] 15 mg PO Q4HP PRN #8 tablet PRN Reason: Famotidine [Pepcid 20 mg Tablet] 20 mg PO BID #20 tablet Promethazine HCl [Phenergan 25 mg Tablet] 1 - 2 tab PO Q6H PRN #15 tablet PRN Reason: Forms: Return to Work Referrals: NICOLE CURRY MD [ACTIVE STAFF] - Follow up in 3-5 days
[2017-09-03 21:53] LABS: AMORPHOUS SEDIMENT,URINE 1+ /HPF; APPEARANCE,URINE TURBID; BILIRUBIN,URINE NEGATIVE (NEGATIVE); COLOR,URINE YELLOW; GLUCOSE, URINE NEGATIVE (NEGATIVE); KETONES,URINE NEGATIVE (NEGATIVE); LEUKOCYTE ESTERASE,URINE NEGATIVE (NEGATIVE); NITRITE,URINE NEGATIVE (NEGATIVE); PROTEIN,URINE NEGATIVE (NEGATIVE); URINE SPECIFIC GRAVITY 1.024
[2017-09-03 22:17] LABS: ABSOLUTE BASOPHILS # (AUTO) 0.1 10^3/uL (0.0-0.2); ABSOLUTE EOSINOPHILS # (AUTO) 0.1 10^3/uL (0.0-0.6); ABSOLUTE LYMPHOCYTES (AUTO) 3.6 10^3/uL (0.5-4.7); ABSOLUTE MONOCYTES (AUTO) 0.8 10^3/uL (0.1-1.4); ABSOLUTE NEUT (AUTO) 6.5 10^3/uL (1.7-8.2); BASOPHILS % (AUTO) 0.9 % (0-2); EOSINOPHILS % (AUTO) 1.2 % (0-6); HEMATOCRIT 38.4 % (36.0-47.0); LYMPHOCYTES % (AUTO) 32.2 % (13-45); MEAN CORPUSCULAR HEMOGLOBIN 30.2 pg (27.0-33.4); MEAN CORPUSCULAR HGB CONC 33.9 g/dL (32.0-36.0); MEAN CORPUSCULAR VOLUME 89 fl (80-97); MONOCYTES % (AUTO) 7.1 % (3-13); PLATELET COUNT 424 10^3/uL (150-450); RED BLOOD COUNT 4.31 10^6/uL (3.72-5.28); RED CELL DISTRIBUTION WIDTH 13.8 % (11.5-14.0); SEGMENTED NEUTROPHILS % (AUTO) 58.6 % (42-78); TOTAL CELLS COUNTED % (AUTO) 100 %; WHITE BLOOD COUNT 11.2 10^3/uL (4.0-10.5)
[2017-09-03 22:34] LABS: ALANINE AMINOTRANSFERASE 123 U/L (9-52); ALBUMIN 4.5 g/dL (3.5-5.0); ALKALINE PHOSPHATASE 96 U/L (38-126); ANION GAP 13 (5-19); ASPARTATE AMINO TRANSFERASE 82 U/L (14-36); BILIRUBIN,DIRECT 0.3 mg/dL (0.0-0.4); BILIRUBIN,TOTAL 0.4 mg/dL (0.2-1.3); BLOOD UREA NITROGEN 19 mg/dL (7-20); CALCIUM 10.3 mg/dL (8.4-10.2); CARBON DIOXIDE 23 mmol/L (22-30); CHLORIDE 107 mmol/L (98-107); GLUCOSE 98 mg/dL (75-110); LIPASE 93.1 U/L (23-300); POTASSIUM 4.4 mmol/L (3.6-5.0); TOTAL PROTEIN 7.6 g/dL (6.3-8.2)
[2017-09-03] MEDS ORDERED: HYDROCODONE/ACETAMINOPHEN 5-325 MG (6 TAB/ER DISP) PO PRN (23:29)
[2017-09-03 23:34] VITALS: BP 136/87
== END 2017-09-03 23:33 | disposition home or self-care (01) ==
LOC: ER 18:47
DX: R11.0 Nausea (principal); F17.200 Nicotine dependence, unspecified, uncomplicated; Z90.49 Acquired absence of other specified parts of digestive tract; Z90.710 Acquired absence of both cervix and uterus
CPT/HCPCS: 99284; 96375; 96365; 36415; 83690; 85025; 82272; 81025; 80053; 81001; J3490; J2270; S0164

== ENCOUNTER 2017-09-17 19:57 | Emergency (ER) | payer SELFPAY ==
[2017-09-17 22:40] LABS: ABSOLUTE BASOPHILS # (AUTO) 0.1 10^3/uL (0.0-0.2); ABSOLUTE EOSINOPHILS # (AUTO) 0.2 10^3/uL (0.0-0.6); ABSOLUTE LYMPHOCYTES (AUTO) 4.3 10^3/uL (0.5-4.7); ABSOLUTE MONOCYTES (AUTO) 0.7 10^3/uL (0.1-1.4); ABSOLUTE NEUT (AUTO) 4.2 10^3/uL (1.7-8.2); BASOPHILS % (AUTO) 0.9 % (0-2); EOSINOPHILS % (AUTO) 1.9 % (0-6); HEMATOCRIT 38.5 % (36.0-47.0); HEMOGLOBIN 13.5 g/dL (12.0-15.5); LYMPHOCYTES % (AUTO) 45.8 % (13-45); MEAN CORPUSCULAR HGB CONC 35.1 g/dL (32.0-36.0); MEAN CORPUSCULAR VOLUME 89 fl (80-97); MONOCYTES % (AUTO) 7.4 % (3-13); PLATELET COUNT 495 10^3/uL (150-450); RED BLOOD COUNT 4.35 10^6/uL (3.72-5.28); RED CELL DISTRIBUTION WIDTH 13.9 % (11.5-14.0); TOTAL CELLS COUNTED % (AUTO) 100 %; WHITE BLOOD COUNT 9.4 10^3/uL (4.0-10.5)
[2017-09-17] MEDS ORDERED: ONDANSETRON 4 MG TAB.RAPDIS PO ONE (22:49)
[2017-09-17] MEDS ORDERED: NORMAL SALINE 1000 ML 1,000 ML IV PRN (22:49)
[2017-09-17] MEDS ORDERED: FAMOTIDINE INJ/PF 20 MG/2 ML SDV IV ONE (22:49)
[2017-09-17] MEDS ORDERED: DICYCLOMINE HCL INJ 20 MG/2 ML AMPULE IM ONE (22:51)
--- NOTE | 2017-09-17 23:31 | RADIOLOGY REPORT (SQ) ---
EXAM DESCRIPTION: CLINICAL HISTORY: abd pain COMPARISON: None. FINDINGS: Lungs are clear and heart size normal. There is no evidence of bowel obstruction. There is no abnormal calcification within the abdomen. There is no acute osseous process visualized. Moderate stool is in the colon. IMPRESSION: Moderate stool.
[2017-09-18 00:06] LABS: APPEARANCE,URINE SLIGHTLY-CLOUDY; BILIRUBIN,URINE NEGATIVE (NEGATIVE); COLOR,URINE YELLOW; GLUCOSE, URINE NEGATIVE (NEGATIVE); KETONES,URINE NEGATIVE (NEGATIVE); LEUKOCYTE ESTERASE,URINE NEGATIVE (NEGATIVE); NITRITE,URINE NEGATIVE (NEGATIVE); PROTEIN,URINE NEGATIVE (NEGATIVE); URINE SPECIFIC GRAVITY 1.015; UROBILINOGEN,URINE NEGATIVE mg/dL (<2.0)
[2017-09-18 00:17] LABS: ALANINE AMINOTRANSFERASE 108 U/L (9-52); ALBUMIN 4.4 g/dL (3.5-5.0); ALKALINE PHOSPHATASE 133 U/L (38-126); ANION GAP 13 (5-19); ASPARTATE AMINO TRANSFERASE 128 U/L (14-36); BILIRUBIN,DIRECT 0.5 mg/dL (0.0-0.4); BILIRUBIN,TOTAL 0.6 mg/dL (0.2-1.3); BLOOD UREA NITROGEN 15 mg/dL (7-20); CALCIUM 9.5 mg/dL (8.4-10.2); CARBON DIOXIDE 23 mmol/L (22-30); CHLORIDE 109 mmol/L (98-107); GLUCOSE 90 mg/dL (75-110); LIPASE 225.1 U/L (23-300); POTASSIUM 4.2 mmol/L (3.6-5.0); SODIUM 144.5 mmol/L (137-145); TOTAL PROTEIN 7.6 g/dL (6.3-8.2)
[2017-09-18 00:25] LABS: URINE AMPHETAMINES SCREEN NEGATIVE; URINE BARBITURATES SCREEN NEGATIVE; URINE BENZODIAZEPINES SCREEN NEGATIVE; URINE COCAINE SCREEN NEGATIVE; URINE MARIJUANA (THC) SCREEN NEGATIVE; URINE METHADONE SCREEN NEGATIVE; URINE PHENCYCLIDINE SCREEN NEGATIVE
--- NOTE | 2017-09-18 00:55 | ER Document Report ---
ED General - General Chief Complaint: Nausea/Vomiting Stated Complaint: VOMITING/ABDOMINAL PAIN Time Seen by Provider: 09/17/17 22:19 TRAVEL OUTSIDE OF THE [place] IN LAST 30 DAYS: No - HPI Patient complains to provider of: Nausea vomiting epigastric abdominal pain Notes: Patient coming in for reevaluation of her abdominal pain states started around 3 :00 this afternoon. Patient states spontaneous. Also states symptoms nausea and vomiting. Denies any diarrhea states normal stools the last few days. Patient states she is yet to follow-up with GI especially from her last visit. Patient denies any recent antibiotics denies any recent travel. Patient states similar pain in the past. - Related Data Allergies/Adverse Reactions: cephalexin monohydrate [From Keflex] Allergy (Verified 09/03/17 20:20) ketorolac [From Toradol] Allergy (Verified 09/03/17 20:20) tramadol Allergy (Verified 09/03/17 20:20) Past Medical History - Social History Smoking Status: Current Every Day Smoker Chew tobacco use (# tins/day): No Frequency of alcohol use: Rare Drug Abuse: None Family History: Reviewed & Not Pertinent Patient has suicidal ideation: No Patient has homicidal ideation: No - Past Medical History Cardiac Medical History: Denies: Hx Coronary Artery Disease, Hx Hypertension Pulmonary Medical History: Denies: Hx Asthma Neurological Medical History: Reports: Hx Migraine Endocrine Medical History: Denies: Hx Diabetes Mellitus Type 1, Hx Diabetes Mellitus Type 2 Renal/ Medical History: Reports: Hx Ovarian Cysts. Denies: Hx Peritoneal Dialysis GI Medical History: Reports: Hx Gastritis Musculoskeltal Medical History: Reports Hx Musculoskeletal Deformity - both arm and left foot, Reports Hx Musculoskeletal Trauma Past Surgical History: Reports: Hx Appendectomy - 2000, Hx Cholecystectomy - 2003, Hx Hysterectomy. Denies: Hx Section - Immunizations Immunizations up to date: Yes Hx Diphtheria, Pertussis, Tetanus Vaccination: Yes - 2006 Review of Systems - Review of Systems Constitutional: No symptoms reported EENT: No symptoms reported Cardiovascular: No symptoms reported Respiratory: No symptoms reported Gastrointestinal: Abdominal pain, Nausea, Vomiting Genitourinary: No symptoms reported Female Genitourinary: No symptoms reported Musculoskeletal: No symptoms reported Skin: No symptoms reported Hematologic/Lymphatic: No symptoms reported Neurological/Psychological: No symptoms reported -: Yes All other systems reviewed and negative Physical Exam - Vital signs Vitals: Temp Pulse Resp BP Pulse Ox 97.8 F 80 16 137/83 H 96 09/17/17 20:02 09/17/17 20:02 09/17/17 20:02 09/17/17 20:02 09/17/17 20:02 Interpretation: Normal - General General appearance: Appears well, Alert - HEENT Head: Normocephalic, Atraumatic Eyes: Normal Pupils: PERRL - Respiratory Respiratory status: No respiratory distress Chest status: Nontender Breath sounds: Normal Chest palpation: Normal - Cardiovascular Rhythm: Regular Heart sounds: Normal auscultation Murmur: No - Abdominal Inspection: Normal, Obese Distension: No distension Bowel sounds: Normal Tenderness: Tender - Tenderness to palpation epigastric region mild to moderate there is no guarding or rebound Organomegaly: No organomegaly - Back Back: Normal, Nontender - Extremities General upper extremity: Normal inspection, Nontender, Normal color, Normal ROM , Normal temperature General lower extremity: Normal inspection, Nontender, Normal color, Normal ROM , Normal temperature, Normal weight bearing. No: Saroj's sign - Neurological Neuro grossly intact: Yes Cognition: Normal Orientation: AAOx4 [place] Coma Scale Eye Opening: Spontaneous [place] Coma Scale Verbal: Oriented Tabitha Coma Scale Motor: Obeys Commands [place] Coma Scale Total: 15 Speech: Normal Motor strength normal: LUE, RUE, LLE, RLE Sensory: Normal - Psychological Associated symptoms: Normal affect, Normal mood - Skin Skin Temperature: Warm Skin Moisture: Dry Skin Color: Normal Course - Re-evaluation Re-evalutation: 09/18/17 00:50 Laboratory studies showed a slight elevation in liver function test minimal changes from previous studies. Patient had a acute abdominal series performed showing constipation. More likely from recent opiate use. More likely patient' s pain is from underlying gastritis. Will have the patient increase her PPI will also have the patient use Zofran and/or Phenergan for any nausea vomiting highly encouraged patient to follow-up with GI especially also have the patient information given to our social work today can establish the patient follow-up 09/18/17 05:18 The patient presents with abdominal pain without signs of peritonitis or other life-threatening or serious etiology. The patient appears stable for discharge and has been instructed to return immediately if the symptoms worsen in any way , or in 8-12hr if not improved for re-evaluation. The patient has been instructed to return if the symptoms worsen or change in any way. - Vital Signs Vital signs: Temp Pulse Resp BP Pulse Ox 97.7 F 65 18 126/87 H 99 09/18/17 01:47 09/18/17 01:47 09/18/17 01:47 09/18/17 01:47 09/18/17 01:47 - Laboratory Result Diagrams: 09/17/17 21:40 09/17/17 23:57 Laboratory results interpreted by me: 09/17/17 09/17/17 21:40 23:57 Plt Count 495 H Lymphocytes % 45.8 H Chloride 109 H Direct Bilirubin 0.5 H AST 128 H ALT 108 H Alkaline Phosphatase 133 H Discharge - Discharge Clinical Impression: Abdominal pain Qualifiers: Abdominal location: epigastric Qualified Code(s): R10.13 - Epigastric pain Constipation Qualifiers: Constipation type: unspecified constipation type Qualified Code(s): K59.00 - Constipation, unspecified Condition: Good Disposition: HOME, SELF-CARE Instructions: Abdominal Pain ([facility]), Clear Liquid Diet ([facility]), Gastritis ([facility]), Nausea or Vomiting, Nonspecific ([facility]) Additional Instructions: Laboratory studies today did not reveal any significant pathology. X-ray of her stomach does reveal some constipation. More likely this is from the recent pain medications your prescribed. Pain more likely his underlying gastritis would recommend that we increase your Protonix to 20 mg twice daily also continue on the Carafate will give a prescription for Zofran and Phenergan for nausea I will give her contact information to our social professionals as that we can try to aid in establishing a GI follow-up. Would recommend clear liquid diet for the next 24 hours and advance as tolerated avoid foods that have a high concentration of fat grease or oil 4 her constipation would recommend [id number] laxative or stool softener. Prescriptions: Ondansetron [Zofran Odt 4 mg Tablet] 4 mg PO Q4HP PRN #30 tab.rapdis PRN Reason: Dicyclomine HCl [Bentyl 20 mg Tablet] 20 mg PO QID #30 tablet Pantoprazole Sodium [Protonix] 20 mg PO BID #30 tablet. Promethazine HCl [Phenergan 25 mg Tablet] 25 - 50 mg PO ASDIR PRN #12 tablet PRN Reason: Sucralfate [Carafate 1 gm Tablet] 1 gm PO ACHS #120 tablet Forms: Return to Work
[2017-09-18 01:51] VITALS: BP 126/87
== END 2017-09-18 01:54 | disposition home or self-care (01) ==
LOC: ER 19:57
DX: K59.00 Constipation, unspecified (principal); R11.2 Nausea with vomiting, unspecified; R10.13 Epigastric pain; R79.89 Other specified abnormal findings of blood chemistry; F17.200 Nicotine dependence, unspecified, uncomplicated; Z88.1 Allergy status to other antibiotic agents; Z88.8 Allergy status to other drugs, medicaments and biological substances; Z88.5 Allergy status to narcotic agent; Z90.49 Acquired absence of other specified parts of digestive tract
CPT/HCPCS: 99284; 96372; 96361; 96374; 36415; 83690; 84703; 85025; 80053; 81001; 80307; 74022; J0500; S0119; J7030; S0028

== ENCOUNTER 2017-09-22 21:39 | Emergency (ER) | payer SELFPAY ==
--- NOTE | 2017-09-22 22:27 | RADIOLOGY REPORT (SQ) ---
EXAM DESCRIPTION: ELBOW LEFT OVER 2 VIEWS COMPLETED DATE/TIME: 09/22/2017 10:13 pm REASON FOR STUDY: fall injury COMPARISON: None. NUMBER OF VIEWS: Four views. TECHNIQUE: AP, lateral, and both oblique radiographic images acquired of the left elbow. LIMITATIONS: None. FINDINGS: MINERALIZATION: Normal. BONES: No acute fracture or dislocation. No worrisome bone lesions. JOINT: No effusion. SOFT TISSUES: No soft tissue swelling. No foreign body. OTHER: No other significant finding. IMPRESSION: NEGATIVE STUDY OF THE LEFT ELBOW. NO RADIOGRAPHIC EVIDENCE OF ACUTE INJURY. TECHNICAL DOCUMENTATION: JOB ID: [id number] [employer]- All Rights Reserved Reading location - IP/workstation name: [email or web address]
--- NOTE | 2017-09-22 22:27 | RADIOLOGY REPORT (SQ) ---
EXAM DESCRIPTION: WRIST LEFT 3 VIEWS COMPLETED DATE/TIME: 09/22/2017 10:13 pm REASON FOR STUDY: pain COMPARISON: 07/25/2016. NUMBER OF VIEWS: Three views. TECHNIQUE: AP, lateral, and oblique radiographic images acquired of the left wrist. LIMITATIONS: None. FINDINGS: MINERALIZATION: Normal. BONES: No acute fracture or dislocation. No worrisome bone lesions. Normal alignment. SOFT TISSUES: No soft tissue swelling. No foreign body. OTHER: No other significant finding. IMPRESSION: NEGATIVE STUDY OF THE LEFT WRIST. NO RADIOGRAPHIC EVIDENCE OF ACUTE INJURY. TECHNICAL DOCUMENTATION: JOB ID: [id number] [employer]- All Rights Reserved Reading location - IP/workstation name: [email or web address]
[2017-09-22] MEDS ORDERED: HYDROCODONE/ACETAMINOPHEN 5-325 MG TABLET PO ONE (23:56)
--- NOTE | 2017-09-22 23:59 | ER Document Report ---
HPI - HPI Patient complains to provider of: Arm injury Onset: This evening Onset/Duration: Sudden Quality of pain: Achy Pain Level: 4 Context: Patient states that her dog was coming towards her and caused her to get knocked off of a porch. Patient states she fell about 3 steps. Patient complains of left wrist and left elbow tenderness. Patient is right-hand dominant. Patient denies any head injury or other injuries from the fall. Associated Symptoms: Other - Left wrist, left elbow Exacerbated by: Movement Relieved by: Denies Similar symptoms previously: No Recently seen / treated by doctor: No - ROS ROS below otherwise negative: Yes Systems Reviewed and Negative: Yes All other systems reviewed and negative - CONSTITUTIONAL Constitutional: DENIES: Fever - NEURO Neurology: DENIES: Weakness - REPRODUCTIVE Reproductive: DENIES: : - MUSCULOSKELETAL Musculoskeletal: REPORTS: Extremity pain - LUE. 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 Denies: Hx Peritoneal Dialysis GI Medical History: Reports: Hx Gastritis, Hx Gastroesophageal Reflux Disease Musculoskeltal Medical History: Reports Hx Musculoskeletal Deformity - both arm and left foot, Reports Hx Musculoskeletal Trauma Past Surgical History: Reports: Hx Appendectomy - 2000, Hx Cholecystectomy - 2003, Hx Hysterectomy. Denies: Hx Section - Immunizations Immunizations up to date: Yes Hx Diphtheria, Pertussis, Tetanus Vaccination: Yes - 2006 Vertical Provider Document - CONSTITUTIONAL Agree With Documented VS: Yes Exam Limitations: No Limitations General Appearance: WD/WN, No Apparent Distress - INFECTION CONTROL TRAVEL OUTSIDE OF THE [place] IN LAST 30 DAYS: No - HEENT HEENT: Atraumatic, Normocephalic - NECK Neck: Normal Inspection - RESPIRATORY Respiratory: No Respiratory Distress - CARDIOVASCULAR Pulses: Normal: Radial - BACK Back: Normal Inspection - MUSCULOSKELETAL/EXTREMETIES Musculoskeletal/Extremeties: MAEW, Tender - Tenderness to olecranon process of left elbow, patient with tenderness over distal radius of left wrist. No deformity, no edema, no ecchymosis - NEURO Level of Consciousness: Awake, Alert, Appropriate Motor/Sensory: No Motor Deficit, No Sensory Deficit - DERM Integumentary: Warm, Dry Course - Re-evaluation Re-evalutation: 09/22/17 23:57 Patient with very exaggerated pain response with very minimal light palpation. X-rays reviewed, no concern for fracture. Patient has had multiple visits in the ER for painful conditions. Patient advised that she would be given pain medication here but no narcotic prescriptions will be written. Patient encouraged to follow-up with orthopedics for further evaluation - Vital Signs Vital signs: Temp Pulse Resp BP Pulse Ox 98.4 F 103 H 20 131/88 H 99 09/22/17 21:56 09/22/17 21:56 09/22/17 21:56 09/22/17 21:56 09/22/17 21:56 - Diagnostic Test Radiology reviewed: Reports reviewed Procedures - Immobilization Left Wrist Pre-Proc Neuro Vasc Exam: Normal Immobilizer type: Cock-up Performed by: PCT Post-Proc Neuro Vasc Exam: Normal Alignment checked and good: Yes Left Elbow Pre-Proc Neuro Vasc Exam: Normal Immobilizer type: Sling Performed by: PCT Post-Proc Neuro Vasc Exam: Normal Alignment checked and good: Yes Discharge - Discharge Clinical Impression: Left wrist sprain, Sprain of left elbow Condition: Stable Disposition: HOME, SELF-CARE Instructions: Acetaminophen, Ice & Elevation ([facility]), Sprain ([facility]), Wrist Sprain ([facility]), Temporary Sling ([facility]) Additional Instructions: Return immediately for any new or worsening symptoms Followup with your primary care provider, call tomorrow to make a followup appointment Wear sling while awake only Wear splint and sling for the next 4 days and then remove. If still having pain replace the splint and follow-up with orthopedics for further evaluation. Forms: Smoking Cessation Education Referrals: [facility] [Provider Group] - Follow up as needed
[2017-09-23 00:47] VITALS: BP 128/94
== END 2017-09-23 00:47 | disposition home or self-care (01) ==
LOC: ER 21:39
DX: S63.502A Unspecified sprain of left wrist, initial encounter (principal); S53.402A Unspecified sprain of left elbow, initial encounter; M25.532 Pain in left wrist; M25.522 Pain in left elbow; W10.9XXA Fall (on) (from) unspecified stairs and steps, initial encounter
CPT/HCPCS: 99283; 73080; 73110; L3908

== ENCOUNTER 2017-10-05 00:26 | Emergency (ER) | payer SELFPAY ==
[2017-10-05 01:26] LABS: ABSOLUTE BASOPHILS # (AUTO) 0.1 10^3/uL (0.0-0.2); ABSOLUTE EOSINOPHILS # (AUTO) 0.2 10^3/uL (0.0-0.6); ABSOLUTE LYMPHOCYTES (AUTO) 4.9 10^3/uL (0.5-4.7); ABSOLUTE MONOCYTES (AUTO) 0.8 10^3/uL (0.1-1.4); ABSOLUTE NEUT (AUTO) 5.5 10^3/uL (1.7-8.2); BASOPHILS % (AUTO) 0.5 % (0-2); HEMATOCRIT 39.2 % (36.0-47.0); HEMOGLOBIN 13.3 g/dL (12.0-15.5); LYMPHOCYTES % (AUTO) 42.3 % (13-45); MEAN CORPUSCULAR HEMOGLOBIN 30.5 pg (27.0-33.4); MEAN CORPUSCULAR HGB CONC 33.9 g/dL (32.0-36.0); MEAN CORPUSCULAR VOLUME 90 fl (80-97); PLATELET COUNT 431 10^3/uL (150-450); RED BLOOD COUNT 4.37 10^6/uL (3.72-5.28); RED CELL DISTRIBUTION WIDTH 12.9 % (11.5-14.0); SEGMENTED NEUTROPHILS % (AUTO) 48.2 % (42-78); TOTAL CELLS COUNTED % (AUTO) 100 %; WHITE BLOOD COUNT 11.5 10^3/uL (4.0-10.5)
[2017-10-05 01:31] LABS: APPEARANCE,URINE SLIGHTLY-CLOUDY; BILIRUBIN,URINE NEGATIVE (NEGATIVE); COLOR,URINE YELLOW; GLUCOSE, URINE NEGATIVE (NEGATIVE); KETONES,URINE NEGATIVE (NEGATIVE); LEUKOCYTE ESTERASE,URINE NEGATIVE (NEGATIVE); NITRITE,URINE NEGATIVE (NEGATIVE); PROTEIN,URINE NEGATIVE (NEGATIVE)
[2017-10-05 01:59] LABS: ALANINE AMINOTRANSFERASE 63 U/L (9-52); ALBUMIN 4.2 g/dL (3.5-5.0); ALKALINE PHOSPHATASE 89 U/L (38-126); ANION GAP 12 (5-19); ASPARTATE AMINO TRANSFERASE 41 U/L (14-36); BILIRUBIN,DIRECT 0.3 mg/dL (0.0-0.4); BILIRUBIN,TOTAL 0.3 mg/dL (0.2-1.3); BLOOD UREA NITROGEN 17 mg/dL (7-20); CALCIUM 9.8 mg/dL (8.4-10.2); CARBON DIOXIDE 26 mmol/L (22-30); CHLORIDE 107 mmol/L (98-107); GLUCOSE 89 mg/dL (75-110); LIPASE 171.1 U/L (23-300); POTASSIUM 4.5 mmol/L (3.6-5.0); SODIUM 145.1 mmol/L (137-145); TOTAL PROTEIN 7.4 g/dL (6.3-8.2)
[2017-10-05] MEDS ORDERED: LIDOCAINE 2% VISCOUS SOLN 20 ML UDCUP PO ONE (03:09)
[2017-10-05] MEDS ORDERED: METOCLOPRAMIDE HCL ORAL SOLN 10 MG/10 ML UDCUP PO ONE (03:09)
[2017-10-05] MEDS ORDERED: MAG HYDROX/AL HYDROX/SIMETH SUSP 30 ML UDCUP PO ONE (03:09)
--- NOTE | 2017-10-05 03:12 | ER Document Report ---
ED General - General Chief Complaint: Abdominal Pain Stated Complaint: ABDOMINAL PAIN Time Seen by Provider: 10/05/17 03:01 TRAVEL OUTSIDE OF THE [place] IN LAST 30 DAYS: No - HPI Notes: Patient is a 37-year-old female who presents to the ED complaining of epigastric pain and intermittent nausea that began last night about 4-5 hours ago. Patient states that the pain does not radiate. Patient states she has had this pain intermittently over the last month and a half and has had workups done previously through the ER without any significant findings. Patient states that she does have a history of ulcers. She is working on getting scheduled with a linderman machine operator. Patient is not sure if food intake worsens his pain this time. She is still urinating normally and having normal bowel movements. Patient states her last bowel movement was at 8:00 last night and she has been having flatulence since then. Patient states that she has had a cholecystectomy as well as an appendectomy. No other concerns or complaints at this time. Denies any headache, fever, neck pain, URI, sore throat, chest pain, palpitations, syncope, cough, shortness of breath, wheeze, dyspnea, vomiting/diarrhea, urinary retention, dysuria, hematuria, back pain, loss of control of bowel or bladder, numbness/tingling, saddle anesthesia, muscle paralysis/weakness, or rash. - Related Data Allergies/Adverse Reactions: cephalexin monohydrate [From Keflex] Allergy (Verified 09/03/17 20:20) ketorolac [From Toradol] Allergy (Verified 09/03/17 20:20) tramadol Allergy (Verified 09/03/17 20:20) Past Medical History - Social History Smoking Status: Unknown if Ever Smoked Family History: Reviewed & Not Pertinent - Past Medical History Cardiac Medical History: Denies: Hx Coronary Artery Disease, Hx Hypertension Pulmonary Medical History: Denies: Hx Asthma Neurological Medical History: Reports: Hx Migraine Endocrine Medical History: Denies: Hx Diabetes Mellitus Type 1, Hx Diabetes Mellitus Type 2 Renal/ Medical History: Reports: Hx Ovarian Cysts. Denies: Hx Peritoneal Dialysis GI Medical History: Reports: Hx Gastritis, Hx Gastroesophageal Reflux Disease Musculoskeltal Medical History: Reports Hx Musculoskeletal Deformity - both arm and left foot, Reports Hx Musculoskeletal Trauma Past Surgical History: Reports: Hx Appendectomy - 2000, Hx Cholecystectomy - 2003, Hx Hysterectomy. Denies: Hx Section - Immunizations Immunizations up to date: Yes Hx Diphtheria, Pertussis, Tetanus Vaccination: Yes - 2006 Review of Systems - Review of Systems -: Yes All other systems reviewed and negative Physical Exam - Vital signs Vitals: Temp Pulse Resp BP Pulse Ox 97.6 F 95 18 144/86 H 99 10/05/17 00:33 10/05/17 00:33 10/05/17 00:33 10/05/17 00:10/05/17 00:33 - Notes Notes: PHYSICAL EXAMINATION: GENERAL: Well-appearing, well-nourished and in no acute distress. HEAD: Atraumatic, normocephalic. EYES: Pupils equal round and reactive to light, extraocular movements intact, sclera anicteric, conjunctiva are normal. ENT: Nares patent and without discharge. oropharynx clear without exudates. No tonsilar hypertrophy or erythema. Moist mucous membranes. NECK: Normal range of motion, supple without lymphadenopathy LUNGS: Breath sounds clear to auscultation bilaterally and equal. No wheezes rales or rhonchi. HEART: Regular rate and rhythm without murmurs, rubs, gallops. ABDOMEN: Soft, nondistended abdomen. No guarding, no rebound. No masses appreciated. Normal bowel sounds present. No CVA tenderness bilaterally. Smith negative. No tenderness at McBurney point or lower abd. + tenderness to the epigastrum, correlates with pain described. Extremities: No cyanosis, clubbing, or edema b/l. Peripheral pulses 2+. Capillary refill less than 3 seconds. NEUROLOGICAL: Normal speech, normal gait. PSYCH: Normal mood, normal affect. SKIN: Warm, Dry, normal turgor, no rashes or lesions noted. Course - Re-evaluation Re-evalutation: 10/05/17 05:32 Patient is an afebrile, well-hydrated, 37-year-old female who presents to the ED with epigastric pain and right abdominal pain, unspecified. Vitals are acceptable without any significant tachycardia, tachypnea, or hypoxia. PE is otherwise unremarkable. Patient did have epigastric tenderness which was resolved with the GI cocktail. Patient then states that she is still having right abdominal tenderness which would be directly in the area of McBurney point which she did not have during my initial eval. Patient has a history of an appendectomy as well as a cholecystectomy. CBC, CMP, lipase, urinalysis, hCG were unremarkable for any acute pathology. Chest x-ray and KUB x-ray were unremarkable for any acute pathology. Patient's tenderness was not in the pelvic area. I did have Dr. Alfonso puckettal the patient as well who is in agreement with discharge. Tenderness is not near her pelvic area. No further evaluation, labs, or imaging warranted at this time. Pt has had this discomfort intermittently over the last 1.5mos and has had work ups performed recently that were unremarkable. She is scheduled for a colonoscopy next week. Low suspicion/risk for acute appendicitis, bowel obstruction, acute cholecystitis, acute cholangitis, perforated diverticulitis, incarcerated hernia , pancreatitis, perforated ulcer, peritonitis, sepsis, pelvic inflammatory disease, ectopic , tubo-ovarian abscess, ovarian torsion, or other systemic emergent condition at this time. Patient is aware that her condition can change from initial presentation and she needs to monitor symptoms closely and seek medical attention if any acute changes. Conservative measures otherwise for symptoms. Recheck with your PCM in 2-3 days. Schedule appointment with GI. Return to the ED with any worsening/concerning symptoms otherwise as reviewed in discharge. Patient is in agreement. Pt has PPI/ carafate at home. - Vital Signs Vital signs: Temp Pulse Resp BP Pulse Ox 97.6 F 95 18 144/86 H 99 10/05/17 00:33 10/05/17 00:33 10/05/17 00:33 10/05/17 00:33 10/05/17 00:33 - Laboratory Result Diagrams: 10/05/17 01:05 10/05/17 01:05 Laboratory results interpreted by me: 10/05/17 10/05/17 10/05/17 01:05 01:05 01:05 WBC 11.5 H Absolute Lymphocytes 4.9 H Sodium 145.1 H AST 41 H ALT 63 H Urine Urobilinogen 4.0 H Discharge - Discharge Clinical Impression: Abdominal pain Qualifiers: Abdominal location: unspecified location Qualified Code(s): R10.9 - Unspecified abdominal pain Condition: Stable Disposition: HOME, SELF-CARE Instructions: Abdominal Pain ([facility]), Low-Fat Diet ([facility]), Antinausea Medication ( [facility]) Additional Instructions: Maintain adequate fluid and food intake Steele diet ([facility].T.) Bananas, rice, apples, toast, etc Zofran as needed tylenol if needed Monitor for any worsening symptoms Make sure you are staying hydrated enough to urinate and have normal BM's Recheck with your PCM in 2-3 days Schedule appointment with gastroenterology Return to the ED with any worsening symptoms and/or development of fever, headache, chest pain, palpitations, syncope, shortness of breath, trouble breathing, abdominal pain, n/v/d, blood in stool/urine, weakness, or other worsening symptoms that are concerning to you. Prescriptions: Ondansetron [Zofran Odt 4 mg Tablet] 1 - 2 tab PO Q4H PRN #15 tab.rapdis PRN Reason: For Nausea/Vomiting Forms: Elevated Blood Pressure Referrals: NICOLE CURRY MD [ACTIVE STAFF] - Follow up as needed BRII WYNNE MD [ACTIVE STAFF] - Follow up as needed
--- NOTE | 2017-10-05 03:48 | RADIOLOGY REPORT (SQ) ---
EXAM DESCRIPTION: XR CHEST 1 VIEW COMPLETED DATE/TME: 10/05/2017 03:08 CLINICAL HISTORY: epigastric pain COMPARISON: 08/19/2017 FINDINGS: Single frontal view of the chest. The cardiomediastinal silhouette has normal size and contour. No consolidation, pneumothorax, or pleural effusion. No displaced rib fractures identified. Postoperative change in the right upper abdomen. IMPRESSION: 1. No acute pulmonary process identified.
--- NOTE | 2017-10-05 03:49 | RADIOLOGY REPORT (SQ) ---
EXAM DESCRIPTION: XR ABDOMEN 1 VIEW ([facility]) COMPLETED DATE/TME: 10/05/2017 03:09 CLINICAL HISTORY: epigastric pain COMPARISON: None. FINDINGS: Bowel: No dilated loops of large or small bowel. Peritoneum: No free intraperitoneal air identified. Solid organs: No definite organomegaly. Calcifications: No abnormal calcifications. Bones: No acute osseous abnormalities. Other: Prior cholecystectomy. IMPRESSION: Nonobstructive bowel gas pattern.
[2017-10-05 05:50] VITALS: BP 138/92
== END 2017-10-05 05:50 | disposition home or self-care (01) ==
LOC: ER 00:26
DX: R10.13 Epigastric pain (principal); R11.0 Nausea; Z90.49 Acquired absence of other specified parts of digestive tract; Z87.19 Personal history of other diseases of the digestive system; Z88.1 Allergy status to other antibiotic agents; Z88.8 Allergy status to other drugs, medicaments and biological substances; Z88.5 Allergy status to narcotic agent
CPT/HCPCS: 99284; 36415; 83690; 85025; 81025; 80053; 81001; 71045; 74018; J3490

== ENCOUNTER 2017-10-22 18:22 | Emergency (ER) | payer SELFPAY ==
[2017-10-22] MEDS ORDERED: ACETAMINOPHEN 325 MG TABLET PO ONE (19:16)
[2017-10-22 19:36] VITALS: BP 131/86
--- NOTE | 2017-10-22 20:02 | ER Document Report ---
ED Extremity Problem, Upper - General Chief Complaint: Shoulder Pain Stated Complaint: NECK/SHOULDER PAIN Time Seen by Provider: 10/22/17 19:00 Mode of Arrival: Ambulatory Information source: Patient Notes: 37-year-old female presented to ED for complaint of right shoulder and neck pain and upper back pain. She states she was playing around wrestling with her son when she injured her arm and shoulder and upper back. TRAVEL OUTSIDE OF THE [place] IN LAST 30 DAYS: No - HPI Patient complains to provider of: Pain - Back, Right, Shoulder, Other Onset: Just prior to arrival Recent injury: Possibly Where: Home Quality of pain: Burning, Sharp Severity of pain: Moderate Pain Level: 4 Associated symptoms: Back pain Exacerbated by: Movement - Right upper back shoulder neck, Exertion Relieved by: Nothing Similar symptoms previously: Yes Recently seen / treated by doctor: No - Related Data Allergies/Adverse Reactions: cephalexin monohydrate [From Keflex] Allergy (Verified 09/03/17 20:20) ketorolac [From Toradol] Allergy (Verified 09/03/17 20:20) tramadol Allergy (Verified 09/03/17 20:20) Past Medical History - General Information source: Patient - Social History Smoking Status: Current Every Day Smoker Cigarette use (# per day): Yes - 5 cigarettes a day Chew tobacco use (# tins/day): No Smoking Education Provided: Yes - 4 minutes Frequency of alcohol use: Rare Drug Abuse: None Lives with: Family Family History: Reviewed & Not Pertinent Patient has suicidal ideation: No Patient has homicidal ideation: No - Past Medical History Cardiac Medical History: Reports: None Pulmonary Medical History: Reports: None EENT Medical History: Reports: None Neurological Medical History: Reports: Hx Migraine Endocrine Medical History: Reports: None Renal/ Medical History: Reports: Hx Ovarian Cysts - PCO S Malignancy Medical History: Reports: None GI Medical History: Reports: Hx Gastritis, Hx Gastroesophageal Reflux Disease, Hx Ulcer, Hx Colonoscopy, Hx Endoscopy Musculoskeletal Medical History: Reports Hx Musculoskeletal Deformity - both arm and left foot, Reports Hx Musculoskeletal Trauma Skin Medical History: Reports None Psychiatric Medical History: Reports: Hx Post Traumatic Stress Disorder Traumatic Medical History: Reports: Hx Fractures - Arms and feet Infectious Medical History: Reports: None Past Surgical History: Reports: Hx Appendectomy - 2000, Hx Cholecystectomy - 2003, Hx Hysterectomy - Immunizations Immunizations up to date: Yes Hx Diphtheria, Pertussis, Tetanus Vaccination: Yes - 2006 Review of Systems - Review of Systems Constitutional: No symptoms reported EENT: No symptoms reported Cardiovascular: No symptoms reported Respiratory: No symptoms reported Gastrointestinal: No symptoms reported Genitourinary: No symptoms reported Female Genitourinary: No symptoms reported Musculoskeletal: Back pain - Right back right neck and right shoulder, Muscle pain, Muscle stiffness, Neck pain Skin: No symptoms reported Hematologic/Lymphatic: No symptoms reported Neurological/Psychological: No symptoms reported -: Yes All other systems reviewed and negative Physical Exam - Vital signs Vitals: Temp Pulse Resp BP Pulse Ox 97.7 F 92 20 131/86 H 100 10/22/17 19:35 10/22/17 19:35 10/22/17 19:35 10/22/17 19:35 10/22/17 19:35 Interpretation: Normal - General General appearance: Appears well, Alert - HEENT Head: Normocephalic, Atraumatic Eyes: Normal Pupils: PERRL - Respiratory Respiratory status: No respiratory distress Chest status: Nontender Breath sounds: Normal Chest palpation: Normal - Cardiovascular Rhythm: Regular Heart sounds: Normal auscultation Murmur: No - Abdominal Inspection: Normal Distension: No distension Bowel sounds: Normal Tenderness: Nontender Organomegaly: No organomegaly - Back Back: Tender - Left upper back. No: Deformity/step-off, CVA tenderness, Vertebra tenderness, Scars, Scoliosis, Wounds - Extremities General upper extremity: Normal inspection, Normal color, Normal temperature General lower extremity: Normal inspection, Nontender, Normal color, Normal ROM , Normal temperature, Normal weight bearing. No: Saroj's sign Shoulder: Tender. No: Limited ROM - Patient states she has pain with range of motion but has full range of motion to the shoulder Arm: Tender Elbow: Normal, Nontender Forearm: Normal, Nontender - Neurological Neuro grossly intact: Yes Cognition: Normal Orientation: AAOx4 Tabitha Coma Scale Eye Opening: Spontaneous Tabitha Coma Scale Verbal: Oriented [place] Coma Scale Motor: Obeys Commands [place] Coma Scale Total: 15 Speech: Normal Motor strength normal: LUE, RUE, LLE, RLE Sensory: Normal - Psychological Associated symptoms: Normal affect, Normal mood - Skin Skin Temperature: Warm Skin Moisture: Dry Skin Color: Normal Course - Re-evaluation Re-evalutation: 10/22/17 20:51 Discussed x-rays with patient. Written report of x-rays given the patient to follow-up with primary doctor and an orthopedic doctor. Patient was discharged home with prescription for Robaxin and a small prescription for hydrocodone. Patient states she cannot take ibuprofen due to ulcers. She states she is allergic to Toradol and Ultram. Patient verbalized understanding of instructions and agreement with treatment plan. - Vital Signs Vital signs: Temp Pulse Resp BP Pulse Ox 97.7 F 92 20 131/86 H 100 10/22/17 19:35 10/22/17 19:35 10/22/17 19:35 10/22/17 19:35 10/22/17 19:35 - Diagnostic Test Radiology reviewed: Image reviewed, Reports reviewed Procedures - Immobilization Right Shoulder Time completed: 19:25 Immobilizer type: Sling Performed by: PCT Post-Proc Neuro Vasc Exam: Normal Alignment checked and good: Yes Discharge - Discharge Clinical Impression: Right shoulder pain Qualifiers: Chronicity: acute Qualified Code(s): M25.511 - Pain in right shoulder Cervical strain, acute Qualifiers: Encounter type: initial encounter Qualified Code(s): S16.1XXA - Strain of muscle, fascia and tendon at neck level, initial encounter Condition: Stable Disposition: HOME, SELF-CARE Instructions: Family Physicians / Practices Additional Instructions: NECK INJURY (CERVICAL STRAIN): You have a neck strain. This is an injury to the muscles and ligaments in the neck. There is no evidence of a fracture of the neck bones. Also, no injury to the spinal cord or nerve roots was detected. Usually, stiffness and pain INCREASE for the first 24-48 hours after the injury. The pain will gradually resolve and the neck will become more mobile. Most patients are back at work or school within a few days. Typically, complete healing takes about two or three weeks. The usual initial treatment is rest and cold packs. A neck collar may be placed to keep the muscles of the neck at rest. Antiinflammatory and muscle relaxing medication are often used to reduce the spasm and irritation. You should call the doctor, or go to the hospital, if you develop numbness or weakness in any extremity, problems with your bladder or bowel, or pain radiating down the arms. MUSCLE STRAIN: You have strained a muscle -- torn the fibers within the muscle. This often occurs with strenuous exertion, or during an injury that suddenly stretches the muscle. The seriousness of a strain varies. Some strains heal within days, others cause problems for months. X-rays cannot show a muscle strain. X-rays are taken only if symptoms suggest that a fracture could be present. The usual treatment of a muscle strain is rest and ice packs. Sometimes, a sling, splint, or crutches may be necessary to rest the muscle. The muscle can be used again once pain subsides. Severe strains require a special exercise and stretching program to prevent permanent stiffness and disability. Your doctor will advise you if this will be necessary. Call the doctor immediately if pain or swelling becomes severe, or if numbness or discoloration develop. USE OF TYLENOL (ACETAMINOPHEN): Acetaminophen may be taken for pain relief or fever control. It's much safer than aspirin, offering a wider range of "safe" dosages. It is safe during . Some brand names are Tylenol, Panadol, Datril, Anacin 3, Tempra, and Liquiprin. Acetaminophen can be repeated every four hours. The following are maximum recommended dosages: WEIGHT Dose Drops Elixir Chewable( 80mg) (LBS.) drprs=droppers tsp=teaspoon 6 40 mg 0.4 ml (1/2) 6-11 80 mg 0.8 ml (full) tsp 1 tab 12-16 120 mg 1 1/2 drprs 3/4 tsp 1 1/2 tabs 17-23 160 mg 2 drprs 1 tsp 2 tabs 24-30 240 mg 3 drprs 1 1/2 tsp 3 tabs 30-35 320 mg 2 tsp 4 tabs 36-41 360 mg 2 1/4 tsp 4 1/2 tabs 42-47 400 mg 2 1/2 tsp 5 tabs 48-53 480 mg 3 tsp 6 tabs 54-59 520 mg 3 1/4 tsp 6 1/2 tabs 60-64 560 mg 3 1/2 tsp 7 tabs 65-70 600 mg 3 3/4 tsp 7 1/2 tabs 71-76 640 mg 4 tsp 8 tabs 77-82 720 mg 4 1/2 tsp 9 tabs 83-88 800 mg 5 tsp 10 tabs >89 pounds or adults 650 mg to 900 mg Acetaminophen can be repeated every four hours. Maximum dose not to exceed 4000 mg a day. These maximum recommended dosages are slightly higher than the dosages written on the product container, but these dosages are very safe and below the toxic dosage for acetaminophen. ICE PACKS: Apply ice packs frequently against the painful area. Many different schedules are recommended, such as "20 minutes on, 20 minutes off" or "one hour ice, two hours rest." If you need to work, you may need to go longer between ice treatments. You should plan to have the area ice packed AT LEAST one fourth of the time. The ice should be applied over the wrap, tape, or splint, or over a layer of cloth -- not directly against the skin. Some ice bags have a built-in cloth and can be put directly on the skin. WARM PACKS: After approximately two days, apply gentle heat (such as a heating pad or hot water bottle) for about 20 to 30 minutes about every two hours -- at least four times daily. Warmth and elevation will help you make a more rapid recovery , and will ease the pain considerably. Do not use HOT heat, and never apply heat for longer than 30 minutes. The continuous heat can invisibly damage skin and muscles -- even when no burn is seen on the surface. Damaged muscles can make you MORE sore. MUSCLE RELAXERS: Muscle relaxing medications are usually prescribed for acute muscle spasm or injury to the neck and back. They are often combined with antiinflammatory pain medication for increased relief. You may stop the muscle relaxer when the pain and stiffness have improved. Start the medication again if spasms recur. Muscle relaxers may cause drowsiness, especially with the first dose. Do not operate machinery or drive while under the effects of the medication. Most muscle relaxers last up to 24 hours. Do not combine the medication with alcohol. Shoulder Injury You have injured your shoulder. This usually results from stretching or tearing of the tendons during trauma. Time and protection are required in order to heal properly. Many injuries are quite disabling, and should be taken seriously. Initial treatment includes cold packs and a sling to rest the shoulder. The physician has assessed the seriousness of your injury, and has outlined a treatment plan. Understand that this treatment may change, depending on how you progress. If a re-examination was recommended, it is important that you follow up as instructed. Some shoulder injuries (such as partial tear of the rotator cuff) are only suspected after you've failed to improve. Call us if there's severe pain, numbness, or loss of function. Exercise Program for the Shoulder Since the shoulder moves in so many directions, the joint attachment is weak. Muscles provide most of the stability to the shoulder. You must exercise your shoulder to prevent painful instability or stiffening. PASSIVE - These may be begun within a few days of the injury. While standing, lean forward, allowing the arm to hang down towards the floor. Move the arm in small circles while slowly twisting your chest towards and away from the hanging arm. Do this for one minute. ACTIVE - These may be performed when the doctor gives permission. Begin with the arms at the sides. Raise the arms forward (shoulder's width apart) until they reach shoulder level. Then slowly swing both arms back until they are aiming straight out away from each other. Then bring them forward again, and finally, lower them to your sides. Repeat 20 to 30 times. As you improve, put weights in your hands for the exercise. Start with one pound, and work up to 10 pounds. Never use more than is comfortable. Athletes may work up to 30 pounds. Oral Narcotic Medication You have been given a prescription for pain control. This medication is a narcotic. It's best taken with food, as nausea can result if taken on an empty stomach. Don't operate machinery or drive within six hours of taking this medication. Do not combine this medicine with alcohol, or with any medication which can cause sedation (such as cold tablets or sleeping pills) unless you get permission from the physician. Narcotics tend to cause constipation. If possible, drink plenty of fluids and eat a diet high in fiber and fruits. FOLLOW-UP CARE: If you have been referred to a physician for follow-up care, call the physician s office for an appointment as you were instructed or within the next two days. If you experience worsening or a significant change in your symptoms, notify the physician immediately or return to the Emergency Department at any time for re-evaluation. Prescriptions: Hydrocodone/Acetaminophen [Kermit 5-325 mg Tablet] 1 tab PO Q6HP PRN #7 tablet PRN Reason: Methocarbamol [Robaxin 500 mg Tablet] 500 mg PO BID #14 tablet Forms: Elevated Blood Pressure, Smoking Cessation Education, Return to Work Referrals: BELKYS PIEDRA MD [ACTIVE STAFF] - Follow up as needed
--- NOTE | 2017-10-22 20:07 | RADIOLOGY REPORT (SQ) ---
EXAM DESCRIPTION: SHOULDER RIGHT 2 OR MORE VIEWS COMPLETED DATE/TIME: 10/22/2017 7:55 pm REASON FOR STUDY: pain and injury COMPARISON: 01/11/2016 NUMBER OF VIEWS: Three views. TECHNIQUE: Internal rotation, external rotation, and Y view images acquired of the right shoulder. LIMITATIONS: None. FINDINGS: MINERALIZATION: Normal. BONES: No acute fracture or dislocation. No worrisome bone lesions. JOINTS: No dislocation. VISUALIZED LUNGS AND RIBS: No pneumothorax. No rib fracture. SOFT TISSUES: No radiopaque foreign body. OTHER: No other significant finding. IMPRESSION: NEGATIVE STUDY OF THE RIGHT SHOULDER. NO RADIOGRAPHIC EVIDENCE OF ACUTE INJURY. TECHNICAL DOCUMENTATION: JOB ID: [id number] [employer]- All Rights Reserved Reading location - IP/workstation name: [email or web address]
--- NOTE | 2017-10-22 20:08 | RADIOLOGY REPORT (SQ) ---
EXAM DESCRIPTION: CERV SP 4 OR 5 VIEWS COMPLETED DATE/TIME: 10/22/2017 7:55 pm REASON FOR STUDY: pain and injury COMPARISON: None. NUMBER OF VIEWS: Five views. TECHNIQUE: AP, lateral, obliques and odontoid radiographic images acquired of the cervical spine. LIMITATIONS: None. FINDINGS: MINERALIZATION: Normal. ALIGNMENT: Anatomic. VERTEBRAE: Vertebral bodies of normal height. DISCS: No significant osteophytes or sclerosis. Disc height maintained. FORAMINA: No osteophytes or foraminal narrowing. LATERAL AND POSTERIOR ELEMENTS: Facets, lateral masses and spinous processes without significant find ings. HARDWARE: None in the spine. SOFT TISSUES: No masses or calcifications. Lung apices clear. OTHER: No other significant finding. IMPRESSION: NO SIGNIFICANT RADIOGRAPHIC FINDING IN THE CERVICAL SPINE. TECHNICAL DOCUMENTATION: JOB ID: [id number] [employer]- All Rights Reserved Reading location - IP/workstation name: [email or web address]
== END 2017-10-22 20:55 | disposition home or self-care (01) ==
LOC: ER 18:22
DX: S16.1XXA Strain of muscle, fascia and tendon at neck level, initial encounter (principal); X58.XXXA Exposure to other specified factors, initial encounter; M25.511 Pain in right shoulder; M54.2 Cervicalgia; M54.89 Other dorsalgia; F17.210 Nicotine dependence, cigarettes, uncomplicated; Z71.6 Tobacco abuse counseling; Z88.1 Allergy status to other antibiotic agents; Z88.5 Allergy status to narcotic agent; Z88.8 Allergy status to other drugs, medicaments and biological substances
CPT/HCPCS: 72050; 99283; 99406

== ENCOUNTER 2017-10-27 16:52 | Emergency (ER) | payer SELFPAY ==
[2017-10-27 17:04] VITALS: BP 141/87
--- NOTE | 2017-10-27 17:50 | ER Document Report ---
HPI - HPI Patient complains to provider of: sore in mouth, right ear pain Onset: Yesterday Quality of pain: Burning, Stabbing Pain Level: 4 Context: 37 yo female c/o right ear pain and sore throat since yesterday. No fever. Associated Symptoms: None Exacerbated by: Denies Relieved by: Denies Similar symptoms previously: No Recently seen / treated by doctor: No - ROS ROS below otherwise negative: Yes Systems Reviewed and Negative: Yes All other systems reviewed and negative - EENT EENT: REPORTS: Sore Throat, Ear Pain - right - REPRODUCTIVE Reproductive: DENIES: : Past Medical History - General Information source: Patient - Social History Smoking Status: Current Every Day Smoker Chew tobacco use (# tins/day): No Frequency of alcohol use: Rare Drug Abuse: None Lives with: Family Family History: Reviewed & Not Pertinent Patient has suicidal ideation: No Patient has homicidal ideation: No Neurological Medical History: Reports: Hx Migraine Renal/ Medical History: Reports: Hx Ovarian Cysts - PCO S GI Medical History: Reports: Hx Gastritis, Hx Gastroesophageal Reflux Disease, Hx Ulcer, Hx Colonoscopy, Hx Endoscopy Musculoskeletal Medical History: Reports Hx Musculoskeletal Deformity - both arm and left foot, Reports Hx Musculoskeletal Trauma Psychiatric Medical History: Reports: Hx Post Traumatic Stress Disorder Traumatic Medical History: Reports: Hx Fractures - Arms and feet Past Surgical History: Reports: Hx Appendectomy - 2000, Hx Cholecystectomy - 2003, Hx Hysterectomy - Immunizations Immunizations up to date: Yes Hx Diphtheria, Pertussis, Tetanus Vaccination: Yes - 2006 Vertical Provider Document - CONSTITUTIONAL Agree With Documented VS: Yes Exam Limitations: No Limitations General Appearance: No Apparent Distress - INFECTION CONTROL TRAVEL OUTSIDE OF THE [place] IN LAST 30 DAYS: No - HEENT HEENT: negative: Pharyngeal Erythema, Tympanic Membrane Red Notes: apthous ulcer right hard palate - NECK Neck: Supple. negative: Lymphadenopathy-Left, Lymphadenopathy-Right - RESPIRATORY Respiratory: Breath Sounds Normal, No Respiratory Distress - CARDIOVASCULAR Cardiovascular: Regular Rate, Regular Rhythm Course - Re-evaluation Re-evalutation: 10/27/17 19:17 Rapid strep is negative - Vital Signs Vital signs: Temp Pulse Resp BP Pulse Ox 98.8 F 99 14 141/87 H 97 10/27/17 17:03 10/27/17 17:03 10/27/17 17:03 10/27/17 17:10/27/17 17:03 Discharge - Discharge Clinical Impression: Stomatitis, Canker sore Condition: Good Disposition: HOME, SELF-CARE Instructions: Acetaminophen, Topical Lidocaine ([facility]) Additional Instructions: periDex mouthwash as directed Topical lidocaine to numb the area Drink plenty of fluids Tylenol for pain up to 4000 mg per day Return to the emergency room for any worsening of the symptoms Prescriptions: Chlorhexidine Gluconate [Peridex] 15 ml MM TID #200 mouthwash
[2017-10-27] MEDS ORDERED: LIDOCAINE 2% VISCOUS SOLN 20 ML UDCUP PO ONE (19:18)
== END 2017-10-27 19:40 | disposition home or self-care (01) ==
LOC: ER 16:52
DX: K12.0 Recurrent oral aphthae (principal); H92.01 Otalgia, right ear; J02.9 Acute pharyngitis, unspecified; F17.200 Nicotine dependence, unspecified, uncomplicated
CPT/HCPCS: 99282; 87070; 87880; J3490

== ENCOUNTER 2017-11-05 16:40 | Emergency (ER) | payer SELFPAY ==
[2017-11-05] MEDS ORDERED: NORMAL SALINE 1000 ML 1,000 ML IV ONE (17:50)
[2017-11-05] MEDS ORDERED: ONDANSETRON HCL INJ/PF 4 MG/2 ML SDV IV ONE (17:51)
--- NOTE | 2017-11-05 17:56 | ER Document Report ---
ED Medical Screen (RME) - General Chief Complaint: Abdominal Pain Stated Complaint: ABDOMINAL PAIN,VOMITING,DIZZY Time Seen by Provider: 11/05/17 17:50 Mode of Arrival: Wheelchair Information source: Patient TRAVEL OUTSIDE OF THE [place] IN LAST 30 DAYS: No - HPI Patient complains to provider of: abdominal pain; vomiting; dizziness Onset: Yesterday - pt with multiple episodes of emesis, abdominal pain, and dizziness since yesterday - Related Data Allergies/Adverse Reactions: cephalexin monohydrate [From Keflex] Allergy (Verified 09/03/17 20:20) ketorolac [From Toradol] Allergy (Verified 09/03/17 20:20) tramadol Allergy (Verified 09/03/17 20:20) Past Medical History - Past Medical History Cardiac Medical History: Denies: Hx Coronary Artery Disease, Hx Hypertension Pulmonary Medical History: Denies: Hx Asthma Neurological Medical History: Reports: Hx Migraine Endocrine Medical History: Denies: Hx Diabetes Mellitus Type 1, Hx Diabetes Mellitus Type 2 Renal/ Medical History: Reports: Hx Ovarian Cysts - PCO S. Denies: Hx Peritoneal Dialysis GI Medical History: Reports: Hx Gastritis, Hx Gastroesophageal Reflux Disease, Hx Ulcer, Hx Colonoscopy, Hx Endoscopy Musculoskeltal Medical History: Reports Hx Musculoskeletal Deformity - both arm and left foot, Reports Hx Musculoskeletal Trauma Psychiatric Medical History: Reports: Hx Post Traumatic Stress Disorder Traumatic Medical History: Reports: Hx Fractures - Arms and feet Past Surgical History: Reports: Hx Appendectomy - 2000, Hx Cholecystectomy - 2003, Hx Hysterectomy. Denies: Hx Section - Immunizations Immunizations up to date: Yes Hx Diphtheria, Pertussis, Tetanus Vaccination: Yes - 2006 Physical Exam - Vital signs Vitals: Temp Pulse Resp BP Pulse Ox 97.7 F 71 20 129/91 H 99 11/05/17 16:57 11/05/17 16:57 11/05/17 16:57 11/05/17 16:57 11/05/17 16:57 Course - Vital Signs Vital signs: Temp Pulse Resp BP Pulse Ox 97.7 F 71 20 129/91 H 99 11/05/17 16:57 11/05/17 16:57 11/05/17 16:57 11/05/17 16:57 11/05/17 16:57
--- NOTE | 2017-11-05 19:20 | RADIOLOGY REPORT (SQ) ---
EXAM DESCRIPTION: ACUTE ABDOMEN SERIES COMPLETED DATE/TIME: 11/05/2017 7:10 pm REASON FOR STUDY: abd pain COMPARISON: 10/05/2017 NUMBER OF VIEWS: Three views. TECHNIQUE: Frontal chest, supine abdomen and upright/decubitus abdomen radiographic images acquired. LIMITATIONS: None. FINDINGS: CHEST: Lungs clear of infiltrates. FREE AIR: None. No abnormal gas collections. BOWEL GAS PATTERN: Nonobstructive pattern. No dilated loops or air fluid levels. CALCIFICATIONS: No suspicious calcifications. HARDWARE: None in the abdomen. SOFT TISSUES: No gross mass or suggestion of organomegaly. BONES: No acute fracture. No worrisome bone lesions. OTHER: No other significant finding. IMPRESSION: NO RADIOGRAPHIC EVIDENCE FOR ACUTE ABDOMINAL DISEASE. TECHNICAL DOCUMENTATION: JOB ID: [id number] [id number] 2010 [employer]- All Rights Reserved Reading location - IP/workstation name: [email or web address]
[2017-11-05] MEDS ORDERED: HYDROCODONE/ACETAMINOPHEN 5-325 MG TABLET PO ONE (20:18)
[2017-11-05] MEDS ORDERED: ONDANSETRON 4 MG TAB.RAPDIS PO ONE (20:18)
[2017-11-05] MEDS ORDERED: HALOPERIDOL LACTATE INJ 5 MG/1 ML VIAL IV ONE (20:55)
[2017-11-05] MEDS ORDERED: LIDOCAINE 2% VISCOUS SOLN 20 ML UDCUP PO ONE (20:56)
[2017-11-05] MEDS ORDERED: MAG HYDROX/AL HYDROX/SIMETH SUSP 30 ML UDCUP PO ONE (20:56)
--- NOTE | 2017-11-05 21:42 | ER Document Report ---
ED General - General Chief Complaint: Abdominal Pain Stated Complaint: ABDOMINAL PAIN,VOMITING,DIZZY Time Seen by Provider: 11/05/17 17:50 Mode of Arrival: Wheelchair Notes: Patient is a 37-year-old female with a past surgical history of an appendectomy , cholecystectomy, hysterectomy, history of PTSD, anxiety, depression who presents with vomiting and generalized abdominal pain. The patient has been seen on 7 previous occasions for similar issues since July 2017. She reports that it is an every other day phenomena in which she develops persistent vomiting, inability to tolerate oral intake and generalized abdominal pain. The pain is described as a cramping, aching, moderate to severe pain. She has tried [id number] antacids, prescribed antiemetics without any significant relief. She notes that in the past morphine and hydromorphone have helped her pain when she has been in the emergency department. She has been unable to follow-up with GI or primary care doctor due to lack of insurance. She denies any fever or constitutional symptoms. No vaginal bleeding. No dysuria. TRAVEL OUTSIDE OF THE [place] IN LAST 30 DAYS: No - Related Data Allergies/Adverse Reactions: cephalexin monohydrate [From Keflex] Allergy (Verified 11/05/17 17:52) dicyclomine [From Bentyl] Allergy (Verified 11/05/17 17:52) ketorolac [From Toradol] Allergy (Verified 11/05/17 17:52) tramadol Allergy (Verified 11/05/17 17:52) Past Medical History - General Information source: Patient - Social History Smoking Status: Current Every Day Smoker Frequency of alcohol use: None Drug Abuse: None Lives with: Spouse/Significant other Family History: Reviewed & Not Pertinent Patient has suicidal ideation: No Patient has homicidal ideation: No - Past Medical History Cardiac Medical History: Denies: Hx Coronary Artery Disease, Hx Hypertension Pulmonary Medical History: Denies: Hx Asthma Neurological Medical History: Reports: Hx Migraine Endocrine Medical History: Denies: Hx Diabetes Mellitus Type 1, Hx Diabetes Mellitus Type 2 Renal/ Medical History: Reports: Hx Ovarian Cysts - PCO S. Denies: Hx Peritoneal Dialysis GI Medical History: Reports: Hx Gastritis, Hx Gastroesophageal Reflux Disease, Hx Ulcer, Hx Colonoscopy, Hx Endoscopy Musculoskeletal Medical History: Reports Hx Musculoskeletal Deformity - both arm and left foot, Reports Hx Musculoskeletal Trauma Psychiatric Medical History: Reports: Hx Post Traumatic Stress Disorder Traumatic Medical History: Reports: Hx Fractures - Arms and feet Past Surgical History: Reports: Hx Appendectomy - 2000, Hx Cholecystectomy - 2003, Hx Hysterectomy. Denies: Hx Section - Immunizations Immunizations up to date: Yes Hx Diphtheria, Pertussis, Tetanus Vaccination: Yes - 2006 Review of Systems - Review of Systems Notes: Constitutional: Negative for fever. HENT: Negative for sore throat. Eyes: Negative for visual changes. Cardiovascular: Negative for chest pain. Respiratory: Negative for shortness of breath. Gastrointestinal: Positive for abdominal pain and vomiting Genitourinary: Negative for dysuria. Musculoskeletal: Negative for back pain. Skin: Negative for rash. Neurological: Negative for headaches, weakness or numbness. 10 point ROS negative except as marked above and in HPI. Physical Exam - Vital signs Vitals: Temp Pulse Resp BP Pulse Ox 97.7 F 71 20 129/91 H 99 11/05/17 16:57 11/05/17 16:57 11/05/17 16:57 11/05/17 16:57 11/05/17 16:57 Interpretation: Normal Notes: PHYSICAL EXAMINATION: GENERAL: Appears quite anxious but in no acute distress HEAD: Atraumatic, normocephalic. EYES: Pupils equal round and reactive to light, extraocular movements intact, sclera anicteric, conjunctiva are normal. ENT: nares patent, oropharynx clear without exudates. Moist mucous membranes. NECK: Normal range of motion, supple without lymphadenopathy LUNGS: Breath sounds clear to auscultation bilaterally and equal. No wheezes rales or rhonchi. HEART: Regular rate and rhythm without murmurs ABDOMEN: Soft, generalized abdominal tenderness to palpation without localization of the pain, normoactive bowel sounds. No guarding, no rebound. No masses appreciated. EXTREMITIES: Normal range of motion, no pitting or edema. No cyanosis. NEUROLOGICAL: No focal neurological deficits. Moves all extremities spontaneously and on command. PSYCH: Anxious, tearful SKIN: Warm, Dry, normal turgor, no rashes or lesions noted. Course - Re-evaluation Re-evalutation: 11/05/17 21:41 Patient presents with chronic recurrent abdominal pain and vomiting. Patient has no focal abdominal tenderness on examination. Patient has remote history of a cholecystectomy as well as a appendectomy. She has had 7 visits to the emergency department since the end of July for similar presentations. Lipase is normal. No LFT changes. Based on history and exam, I do not suspect ACS, pulmonary embolus, SBO, mesenteric ischemia, acute pancreatitis, biliary pathology, or an abdominal aortic dissection. Patient has had improvement of symptoms here with a GI cocktail and IV haloperidol. I have recommended close outpatient follow-up with GI and have referred her to the [facility] care program. At this time will discharge with return precautions and follow-up recommendations. Verbal discharge instructions given a the bedside and opportunity for questions given. Medication warnings reviewed. Patient is in agreement with this plan and has verbalized understanding of return precautions and the need for primary care follow-up in the next 24-72 hours. - Vital Signs Vital signs: Temp Pulse Resp BP Pulse Ox 97.7 F 71 20 115/81 96 11/05/17 16:57 11/05/17 16:57 11/05/17 16:57 11/06/17 02:01 11/06/17 02:02 - Laboratory Result Diagrams: 11/05/17 23:49 11/05/17 23:49 Laboratory results interpreted by me: 11/05/17 11/05/17 23:49 23:49 WBC 12.3 H Potassium 3.4 L Chloride 110 H Glucose 113 H ALT 55 H - Diagnostic Test Radiology reviewed: Image reviewed, Reports reviewed Radiology results interpreted by me: 11/06/17 03:29 Acute abdominal series: No evidence of obstruction or perforation Discharge - Discharge Clinical Impression: Chronic abdominal pain Cyclical vomiting Qualifiers: Vomiting Intractability: non-intractable Nausea presence: with nausea Qualified Code(s): G43.A0 - Cyclical vomiting, not intractable Condition: Good Disposition: HOME, SELF-CARE Additional Instructions: You have been seen in the Emergency Department (ED) for abdominal pain. Your evaluation did not identify a clear cause of your symptoms but was generally reassuring. Please follow up with your doctor as soon as possible regarding today's emergent visit and the symptoms that are bothering you. Return to the ED if your abdominal pain worsens or fails to improve, you develop bloody vomiting, bloody diarrhea, you are unable to tolerate fluids due to vomiting, fever greater than 101, or other symptoms that concern you. Please begin to taking famotidine 40 mg twice daily which can be purchased directly over the counter. You may also take the medication that has been provided called Caprice to help with abdominal spasming. Prescriptions: Hyoscyamine Sulfate [Levsin-Sl] 0.125 mg SL Q12HP PRN #[id number] tab.subl PRN Reason: Forms: Parent Work Note
[2017-11-05] MEDS ORDERED: LORAZEPAM INJ 2 MG/1 ML VIAL IV ONE (22:11)
[2017-11-05] MEDS ORDERED: FENTANYL CITRATE INJ/PF 100 MCG/2 ML AMPUL IV PRN (23:29)
[2017-11-05] MEDS ORDERED: HYOSCYAMINE SULFATE 0.125 MG TABLET PO ONE (23:29)
[2017-11-06 00:16] LABS: ABSOLUTE BASOPHILS # (AUTO) 0.1 10^3/uL (0.0-0.2); ABSOLUTE EOSINOPHILS # (AUTO) 0.1 10^3/uL (0.0-0.6); ABSOLUTE LYMPHOCYTES (AUTO) 4.6 10^3/uL (0.5-4.7); ABSOLUTE MONOCYTES (AUTO) 0.8 10^3/uL (0.1-1.4); ABSOLUTE NEUT (AUTO) 6.6 10^3/uL (1.7-8.2); BASOPHILS % (AUTO) 1.1 % (0-2); EOSINOPHILS % (AUTO) 1.2 % (0-6); HEMATOCRIT 38.9 % (36.0-47.0); HEMOGLOBIN 12.9 g/dL (12.0-15.5); LYMPHOCYTES % (AUTO) 37.2 % (13-45); MEAN CORPUSCULAR HEMOGLOBIN 29.6 pg (27.0-33.4); MEAN CORPUSCULAR HGB CONC 33.3 g/dL (32.0-36.0); MEAN CORPUSCULAR VOLUME 89 fl (80-97); MONOCYTES % (AUTO) 6.3 % (3-13); PLATELET COUNT 367 10^3/uL (150-450); RED BLOOD COUNT 4.38 10^6/uL (3.72-5.28); RED CELL DISTRIBUTION WIDTH 12.7 % (11.5-14.0); SEGMENTED NEUTROPHILS % (AUTO) 54.2 % (42-78); TOTAL CELLS COUNTED % (AUTO) 100 %; WHITE BLOOD COUNT 12.3 10^3/uL (4.0-10.5)
[2017-11-06 00:35] LABS: ALANINE AMINOTRANSFERASE 55 U/L (9-52); ALBUMIN 3.8 g/dL (3.5-5.0); ALKALINE PHOSPHATASE 87 U/L (38-126); ANION GAP 12 (5-19); ASPARTATE AMINO TRANSFERASE 29 U/L (14-36); BILIRUBIN,DIRECT 0.3 mg/dL (0.0-0.4); BILIRUBIN,TOTAL 0.8 mg/dL (0.2-1.3); BLOOD UREA NITROGEN 13 mg/dL (7-20); CALCIUM 9.4 mg/dL (8.4-10.2); CARBON DIOXIDE 22 mmol/L (22-30); CHLORIDE 110 mmol/L (98-107); GLUCOSE 113 mg/dL (75-110); LIPASE 192.2 U/L (23-300); POTASSIUM 3.4 mmol/L (3.6-5.0); SODIUM 143.9 mmol/L (137-145); TOTAL PROTEIN 6.7 g/dL (6.3-8.2)
[2017-11-06] MEDS ORDERED: MORPHINE SULFATE 10 MG/ML INJ IV ONE (01:42)
[2017-11-06 02:28] VITALS: BP 115/81
== END 2017-11-06 02:20 | disposition home or self-care (01) ==
LOC: ER 16:40
DX: R10.84 Generalized abdominal pain (principal); G89.29 Other chronic pain; G43.A0 Cyclical vomiting, in migraine, not intractable; F17.200 Nicotine dependence, unspecified, uncomplicated; F41.9 Anxiety disorder, unspecified; Z90.49 Acquired absence of other specified parts of digestive tract; Z90.710 Acquired absence of both cervix and uterus; Z88.1 Allergy status to other antibiotic agents; Z88.8 Allergy status to other drugs, medicaments and biological substances; Z88.5 Allergy status to narcotic agent
CPT/HCPCS: 99284; 96361; 96374; 96375; 36415; 83690; 84703; 85025; 80053; 74022; S0119; J3010; J1630; J3490 ×2; J2270; J2060; J7030

== ENCOUNTER 2017-12-24 19:57 | Emergency (ER) | payer SELFPAY ==
--- NOTE | 2017-12-24 21:03 | RADIOLOGY REPORT (SQ) ---
EXAM DESCRIPTION: FOOT RIGHT COMPLETE COMPLETED DATE/TIME: 12/24/2017 8:49 pm REASON FOR STUDY: r foot/ankle pain COMPARISON: 01/27/2017 NUMBER OF VIEWS: Three views. TECHNIQUE: AP, lateral and oblique radiographic images acquired of the right foot. LIMITATIONS: None. FINDINGS: MINERALIZATION: Normal. BONES: No acute fracture or dislocation. No worrisome bone lesions. Incidental note is made of a pr ominent plantar enthesophyte. JOINTS: No effusions. SOFT TISSUES: No soft tissue swelling. No foreign body. OTHER: No other significant finding. IMPRESSION: No evidence of acute osseous injury. TECHNICAL DOCUMENTATION: JOB ID: [id number] [employer]- All Rights Reserved Reading location - IP/workstation name: [email or web address]
--- NOTE | 2017-12-24 21:03 | RADIOLOGY REPORT (SQ) ---
EXAM DESCRIPTION: ANKLE RIGHT COMPLETE COMPLETED DATE/TIME: 12/24/2017 8:49 pm REASON FOR STUDY: r foot/ankle pain COMPARISON: None. NUMBER OF VIEWS: Three views. TECHNIQUE: AP, lateral, and oblique radiographic images acquired of the right ankle. LIMITATIONS: None. FINDINGS: MINERALIZATION: Normal. BONES: No acute fracture or dislocation. No worrisome bone lesions. JOINTS: No effusions. SOFT TISSUES: Lateral soft tissue swelling. No foreign body. OTHER: No other significant finding. IMPRESSION: Soft tissue swelling overlies the lateral malleolus without underlying osseous injury. TECHNICAL DOCUMENTATION: JOB ID: [id number] [email or web address]- All Rights Reserved Reading location - IP/workstation name: [email or web address]
[2017-12-24] MEDS ORDERED: HYDROCODONE/ACETAMINOPHEN 5-325 MG TABLET PO ONE (21:13)
--- NOTE | 2017-12-24 21:16 | ER Document Report ---
HPI - HPI Patient complains to provider of: Ankle and foot injury Onset: This evening Onset/Duration: Sudden Quality of pain: Achy Pain Level: 5 Context: Patient states that she stepped in a hole around 6 PM today. Patient complains of right ankle pain that radiates into the right foot. Exacerbated by: Standing, Movement, Walking Relieved by: Denies Similar symptoms previously: No Recently seen / treated by doctor: No - ROS ROS below otherwise negative: Yes Systems Reviewed and Negative: Yes All other systems reviewed and negative - CONSTITUTIONAL Constitutional: DENIES: Fever - NEURO Neurology: DENIES: Weakness - REPRODUCTIVE Reproductive: DENIES: : - MUSCULOSKELETAL Musculoskeletal: REPORTS: Extremity pain - DERM Skin Color: Normal Skin Problems: None Past Medical History - General Information source: Patient - Social History Smoking Status: Current Every Day Smoker Smoking Education Provided: Yes Frequency of alcohol use: None Drug Abuse: None Occupation: [employer] Lives with: Family Family History: Reviewed & Not Pertinent Patient has suicidal ideation: No Patient has homicidal ideation: No - Past Medical History Cardiac Medical History: Denies: Hx Coronary Artery Disease, Hx Hypertension Pulmonary Medical History: Denies: Hx Asthma Neurological Medical History: Reports: Hx Migraine Endocrine Medical History: Denies: Hx Diabetes Mellitus Type 1, Hx Diabetes Mellitus Type 2 Renal/ Medical History: Reports: Hx Ovarian Cysts - PCO S. Denies: Hx Peritoneal Dialysis GI Medical History: Reports: Hx Gastritis, Hx Gastroesophageal Reflux Disease, Hx Ulcer, Hx Colonoscopy, Hx Endoscopy Musculoskeletal Medical History: Reports Hx Musculoskeletal Deformity - both arm and left foot, Reports Hx Musculoskeletal Trauma Psychiatric Medical History: Reports: Hx Post Traumatic Stress Disorder Traumatic Medical History: Reports: Hx Fractures - Arms and feet Past Surgical History: Reports: Hx Appendectomy - 2000, Hx Cholecystectomy - 2003, Hx Hysterectomy. Denies: Hx Section - Immunizations Immunizations up to date: Yes Hx Diphtheria, Pertussis, Tetanus Vaccination: Yes - 2006 Vertical Provider Document - CONSTITUTIONAL Agree With Documented VS: Yes Exam Limitations: No Limitations General Appearance: WD/WN, No Apparent Distress - INFECTION CONTROL TRAVEL OUTSIDE OF THE [place] IN LAST 30 DAYS: No - HEENT HEENT: Atraumatic, Normocephalic - NECK Neck: Normal Inspection - RESPIRATORY Respiratory: No Respiratory Distress - CARDIOVASCULAR Pulses: Normal: Dorsalis pedis - MUSCULOSKELETAL/EXTREMETIES Musculoskeletal/Extremeties: MAEW, FROM, Tender - Right ankle tenderness over lateral malleolar area, tenderness extends into right midfoot area. No ecchymosis edema or deformity. Patient with very exaggerated pain response with very minimal palpation - NEURO Level of Consciousness: Awake, Alert, Appropriate Motor/Sensory: No Motor Deficit - DERM Integumentary: Warm, Dry, No Rash Course - Re-evaluation Re-evalutation: 12/24/17 21:14 Patient states that she has crutches at home - Vital Signs Vital signs: Temp Pulse Resp BP Pulse Ox 97.9 F 91 18 125/81 99 12/24/17 20:23 12/24/17 20:23 12/24/17 20:23 12/24/17 20:23 12/24/17 20:23 - Diagnostic Test Radiology reviewed: Image reviewed, Reports reviewed Procedures - Immobilization Right Ankle Pre-Proc Neuro Vasc Exam: Normal Immobilizer type: Ankle stirrup Performed by: PCT Post-Proc Neuro Vasc Exam: Normal Alignment checked and good: Yes Discharge - Discharge Clinical Impression: Pain in right foot Ankle sprain Qualifiers: Encounter type: initial encounter Involved ligament of ankle: unspecified ligament Laterality: right Qualified Code(s): S93.401A - Sprain of unspecified ligament of right ankle, initial encounter Condition: Stable Disposition: HOME, SELF-CARE Instructions: Acetaminophen, Ankle Stirrup Splint ([facility]), Ice Packs ([facility]), Sprain ([facility]) Additional Instructions: Return immediately for any new or worsening symptoms Followup with your primary care provider, call tomorrow to make a followup appointment Use your crutches that you have at home to help with ambulation Follow-up with orthopedics for any persistent pain or problems Weightbearing as tolerated Forms: Smoking Cessation Education, Return to Work Referrals: [facility] [Provider Group] - Follow up as needed
[2017-12-24 22:16] VITALS: BP 124/88
== END 2017-12-24 22:16 | disposition home or self-care (01) ==
LOC: ER 19:57
DX: S93.401A Sprain of unspecified ligament of right ankle, initial encounter (principal); W17.2XXA Fall into hole, initial encounter; F17.200 Nicotine dependence, unspecified, uncomplicated; Z90.49 Acquired absence of other specified parts of digestive tract; Z90.710 Acquired absence of both cervix and uterus
CPT/HCPCS: 99283; 73610; 73630; L1902

== ENCOUNTER 2018-02-12 20:41 | Emergency (ER) | payer SELFPAY ==
[2018-02-12 20:54] VITALS: BP 147/93
[2018-02-12] MEDS ORDERED: FAMOTIDINE INJ/PF 20 MG/2 ML SDV IV ONE (21:08)
[2018-02-12] MEDS ORDERED: MAG HYDROX/AL HYDROX/SIMETH SUSP 30 ML UDCUP PO ONE (21:08)
[2018-02-12] MEDS ORDERED: METOCLOPRAMIDE HCL ORAL SOLN 10 MG/10 ML UDCUP PO ONE (21:08)
[2018-02-12] MEDS ORDERED: LIDOCAINE 2% VISCOUS SOLN 20 ML UDCUP PO ONE (21:08)
--- NOTE | 2018-02-12 21:14 | ER Document Report ---
ED General - General Chief Complaint: Abdominal Pain Stated Complaint: ABDOMINAL PAIN Time Seen by Provider: 02/12/18 21:02 Mode of Arrival: Ambulatory Information source: Patient Notes: 38-year-old female presents emergency department complaints of abdominal pain that started just prior to arrival. Patient states that it is diffuse in nature. No alleviating or exacerbating factors. Patient states that she has followed up with GI inpatient at [place] and was told that she had some inflammation to the stomach lining. Patient denies any chest pain, shortness of breath, dysuria, increased urgency, increased frequency, vaginal bleeding, vaginal discharge. Patient has a history of a cholecystectomy, appendectomy, hysterectomy. TRAVEL OUTSIDE OF THE [place] IN LAST 30 DAYS: No - HPI Onset: Just prior to arrival Onset/Duration: Sudden Quality of pain: Achy Severity: Moderate Associated symptoms: Nausea Exacerbated by: Denies Relieved by: Denies Similar symptoms previously: Yes Recently seen / treated by doctor: Yes - Related Data Allergies/Adverse Reactions: cephalexin monohydrate [From Keflex] Allergy (Verified 11/05/17 17:52) dicyclomine [From Bentyl] Allergy (Verified 11/05/17 17:52) ketorolac [From Toradol] Allergy (Verified 11/05/17 17:52) tramadol Allergy (Verified 11/05/17 17:52) Past Medical History - General Information source: Patient - Social History Smoking Status: Current Some Day Smoker Family History: Reviewed & Not Pertinent - Past Medical History Cardiac Medical History: Denies: Hx Coronary Artery Disease, Hx Hypertension Pulmonary Medical History: Denies: Hx Asthma Neurological Medical History: Reports: Hx Migraine Endocrine Medical History: Denies: Hx Diabetes Mellitus Type 1, Hx Diabetes Mellitus Type 2 Renal/ Medical History: Reports: Hx Ovarian Cysts - PCO S. Denies: Hx Peritoneal Dialysis GI Medical History: Reports: Hx Gastritis, Hx Gastroesophageal Reflux Disease, Hx Ulcer, Hx Colonoscopy, Hx Endoscopy Musculoskeletal Medical History: Reports Hx Musculoskeletal Deformity - both arm and left foot, Reports Hx Musculoskeletal Trauma Psychiatric Medical History: Reports: Hx Post Traumatic Stress Disorder Traumatic Medical History: Reports: Hx Fractures - Arms and feet Past Surgical History: Reports: Hx Appendectomy - 2000, Hx Cholecystectomy - 2003, Hx Hysterectomy. Denies: Hx Section - Immunizations Immunizations up to date: Yes Hx Diphtheria, Pertussis, Tetanus Vaccination: Yes - 2006 Review of Systems - Review of Systems Constitutional: No symptoms reported EENT: No symptoms reported Cardiovascular: No symptoms reported Respiratory: No symptoms reported Gastrointestinal: Abdominal pain, Nausea Genitourinary: No symptoms reported Female Genitourinary: No symptoms reported Musculoskeletal: No symptoms reported Skin: No symptoms reported Hematologic/Lymphatic: No symptoms reported Neurological/Psychological: No symptoms reported -: Yes All other systems reviewed and negative Physical Exam - Vital signs Vitals: Temp Pulse Resp BP Pulse Ox 98.2 F 82 20 147/93 H 100 02/12/18 20:53 02/12/18 20:53 02/12/18 20:53 02/12/18 20:53 02/12/18 20:53 - Notes Notes: PHYSICAL EXAMINATION: GENERAL: Well-appearing, well-nourished and in no acute distress. HEAD: Atraumatic, normocephalic. EYES: Pupils equal round and reactive to light, extraocular movements intact, conjunctiva are normal. ENT: Nares patent, oropharynx clear without exudates. Moist mucous membranes. NECK: Normal range of motion, supple without lymphadenopathy LUNGS: Breath sounds clear to auscultation bilaterally and equal. No wheezes rales or rhonchi. HEART: Regular rate and rhythm without murmurs ABDOMEN: Soft, diffuse tenderness to palpation. No rebound or guarding. Normal active bowel sounds. Female : deferred Musculoskeletal: Normal range of motion, no pitting or edema. No cyanosis. NEUROLOGICAL: Cranial nerves grossly intact. Normal speech, normal gait. Normal sensory, motor exams PSYCH: Normal mood, normal affect. SKIN: Warm, Dry, normal turgor, no rashes or lesions noted. Course - Re-evaluation Re-evalutation: 02/12/18 22:34 Vitals are stable. Diffuse tenderness to palpation on exam. Labs are WNL. CT abdominal/ pelvic done. No acute process seen. Patient refusing GI cocktail. Allergic to bentyl, tramadol, toradol. Requesting narcotic medication. I told the patient I would not be giving her narcotic medication as her labs and imaging have all come back normal. Patient offered Motrin, Tylenol, GI cocktail. Patient refuses any of these medications. 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 Patient is agreeable to plan of care. 02/12/18 23:50 02/12/18 23:52 - Vital Signs Vital signs: Temp Pulse Resp BP Pulse Ox 98.2 F 82 20 147/93 H 100 02/12/18 20:53 02/12/18 20:53 02/12/18 20:53 02/12/18 20:53 02/12/18 20:53 - Laboratory Result Diagrams: 02/12/18 20:04 02/12/18 20:04 Laboratory results interpreted by me: 02/12/18 20:04 Lymphocytes % 45.8 H Discharge - Discharge Clinical Impression: Abdominal pain Qualifiers: Abdominal location: unspecified location Qualified Code(s): R10.9 - Unspecified abdominal pain Condition: Good Disposition: HOME, SELF-CARE Instructions: Abdominal Pain ([facility]) Referrals: BRIONNA ELLIOTT MD [ACTIVE STAFF] - Follow up as needed
[2018-02-12] MEDS ORDERED: ONDANSETRON HCL INJ/PF 4 MG/2 ML SDV IV ONE (22:13)
[2018-02-12 22:21] LABS: ABSOLUTE BASOPHILS # (AUTO) 0.1 10^3/uL (0.0-0.2); ABSOLUTE EOSINOPHILS # (AUTO) 0.2 10^3/uL (0.0-0.6); ABSOLUTE LYMPHOCYTES (AUTO) 4.7 10^3/uL (0.5-4.7); ABSOLUTE MONOCYTES (AUTO) 0.8 10^3/uL (0.1-1.4); ABSOLUTE NEUT (AUTO) 4.5 10^3/uL (1.7-8.2); EOSINOPHILS % (AUTO) 1.6 % (0-6); HEMATOCRIT 39.9 % (36.0-47.0); HEMOGLOBIN 13.4 g/dL (12.0-15.5); LYMPHOCYTES % (AUTO) 45.8 % (13-45); MEAN CORPUSCULAR HEMOGLOBIN 29.6 pg (27.0-33.4); MEAN CORPUSCULAR HGB CONC 33.6 g/dL (32.0-36.0); MEAN CORPUSCULAR VOLUME 88 fl (80-97); MONOCYTES % (AUTO) 7.9 % (3-13); PLATELET COUNT 428 10^3/uL (150-450); RED BLOOD COUNT 4.54 10^6/uL (3.72-5.28); RED CELL DISTRIBUTION WIDTH 13.5 % (11.5-14.0); SEGMENTED NEUTROPHILS % (AUTO) 43.7 % (42-78); TOTAL CELLS COUNTED % (AUTO) 100 %; WHITE BLOOD COUNT 10.2 10^3/uL (4.0-10.5)
--- NOTE | 2018-02-12 22:27 | RADIOLOGY REPORT (SQ) ---
EXAM DESCRIPTION: CT ABDOMEN PELVIS WITH IV CONTRAST COMPLETED DATE/TME: 02/12/2018 21:06 CLINICAL HISTORY: 38 years, Female, abdominal pain COMPARISON: None. TECHNIQUE: 465 Images stored on PACS. All CT scanners at this facility use dose modulation, iterative reconstruction, and/or weight based dosing when appropriate to reduce radiation dose to as low as reasonably achievable (ALARA). [facility]: Dose Right [facility]: CareDose [facility]: Dose Right [facility]: Teradose 4D [facility]: [email or web address] LIMITATIONS: None. FINDINGS: Limited evaluation of the lung bases is unremarkable. Osseous structures are grossly intact. Fatty infiltrative change to the liver. Status post cholecystectomy. The spleen, adrenal glands, pancreas, kidneys are unremarkable. No evidence for bowel obstruction. No free air or free fluid. The appendix is not well seen however there is no pericecal inflammation to suggest acute appendicitis. IMPRESSION: Negative for acute intra-abdominal/pelvic process. Fatty infiltrative change to the liver TECHNICAL DOCUMENTATION: Quality ID # [id number]: Final reports with documentation of one or more dose reduction techniques (e.g., Automated exposure control, adjustment of the mA and/or kV according to patient size, use of iterative reconstruction technique) 2010 [employer]- All Rights Reserved
[2018-02-12 22:44] LABS: ALANINE AMINOTRANSFERASE 40 U/L (9-52); ALBUMIN 4.2 g/dL (3.5-5.0); ALKALINE PHOSPHATASE 77 U/L (38-126); ANION GAP 10 (5-19); ASPARTATE AMINO TRANSFERASE 32 U/L (14-36); BILIRUBIN,DIRECT 0.3 mg/dL (0.0-0.4); BILIRUBIN,TOTAL 0.5 mg/dL (0.2-1.3); BLOOD UREA NITROGEN 17 mg/dL (7-20); CALCIUM 9.7 mg/dL (8.4-10.2); CARBON DIOXIDE 25 mmol/L (22-30); CHLORIDE 105 mmol/L (98-107); GLUCOSE 105 mg/dL (75-110); LIPASE 136.5 U/L (23-300); POTASSIUM 4.5 mmol/L (3.6-5.0); SODIUM 139.7 mmol/L (137-145); TOTAL PROTEIN 7.5 g/dL (6.3-8.2)
[2018-02-12 23:31] LABS: APPEARANCE,URINE CLEAR; BILIRUBIN,URINE NEGATIVE (NEGATIVE); COLOR,URINE STRAW; GLUCOSE, URINE NEGATIVE (NEGATIVE); KETONES,URINE NEGATIVE (NEGATIVE); LEUKOCYTE ESTERASE,URINE NEGATIVE (NEGATIVE); NITRITE,URINE NEGATIVE (NEGATIVE); PROTEIN,URINE NEGATIVE (NEGATIVE); URINE SPECIFIC GRAVITY 1.021; UROBILINOGEN,URINE NEGATIVE mg/dL (<2.0)
== END 2018-02-13 00:26 | disposition home or self-care (01) ==
LOC: ER 20:41
DX: R10.9 Unspecified abdominal pain (principal); R11.0 Nausea; F17.200 Nicotine dependence, unspecified, uncomplicated; Z88.6 Allergy status to analgesic agent; Z90.49 Acquired absence of other specified parts of digestive tract; Z90.710 Acquired absence of both cervix and uterus
CPT/HCPCS: 99284; 96374; 96375; 36415; 83690; 85025; 80053; 81001; 74177; J2405; S0028

== ENCOUNTER 2018-04-21 20:01 | Emergency (ER) | payer SELFPAY ==
[2018-04-21] MEDS ORDERED: ACETAMINOPHEN 325 MG TABLET PO ONE (21:24)
--- NOTE | 2018-04-21 21:54 | RADIOLOGY REPORT (SQ) ---
EXAM DESCRIPTION: XR RIBS UNILATERAL WITH CHEST COMPLETED DATE/TME: 04/21/2018 21:23 CLINICAL HISTORY: 38 years, Female, pain COMPARISON: Chest x-ray 1018 NUMBER OF VIEWS: 3 TECHNIQUE: Frontal view chest 2 view left RIBS LIMITATIONS: None. FINDINGS: The heart size is normal. Lungs are clear. No pneumothorax. Osteopenia. No discrete left rib fracture. Soft tissues are unremarkable IMPRESSION: No discrete left rib fracture. Osteopenia. Lungs are clear copyright 2011 [employer]- All Rights Reserved
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
[2018-04-21 22:35] VITALS: BP 113/89
== END 2018-04-21 22:36 | disposition home or self-care (01) ==
LOC: ER 20:01
DX: S20.212A Contusion of left front wall of thorax, initial encounter (principal); R07.81 Pleurodynia; W18.30XA Fall on same level, unspecified, initial encounter; F17.200 Nicotine dependence, unspecified, uncomplicated; Z88.6 Allergy status to analgesic agent; Z90.49 Acquired absence of other specified parts of digestive tract; Z90.710 Acquired absence of both cervix and uterus
CPT/HCPCS: 99283

== ENCOUNTER 2018-06-02 16:30 | Emergency (ER) | payer SELFPAY ==
[2018-06-02] MEDS ORDERED: ONDANSETRON HCL INJ/PF 4 MG/2 ML SDV IV ONE (19:00)
[2018-06-02] MEDS ORDERED: RINGERS SOLUTION,LACTATED 1,000 ML IV ONE (19:00)
[2018-06-02] MEDS ORDERED: MAGNESIUM SULFATE/D5W 1 GM/100 ML RTUPB IV ONE (19:02)
--- NOTE | 2018-06-02 19:03 | ER Document Report ---
ED Medical Screen (RME) - General Chief Complaint: Abdominal Pain Stated Complaint: HEADACHE Time Seen by Provider: 06/02/18 18:53 Mode of Arrival: Ambulatory Information source: Patient Notes: This is a 38-year-old female with a history of migraines who presents to the emergency room with migraine headache, dizziness, weakness, decreased p.o. intake. Patient does have multiple allergies to medicines: Keflex, Toradol, tramadol, Reglan, Benadryl and we think Haldol. It is unclear if she has an allergy to Compazine (she does not think so). Currently she is not on any medicines. Her surgeries include hysterectomy, cholecystectomy, appendectomy. TRAVEL OUTSIDE OF THE [place] IN LAST 30 DAYS: No - Related Data Allergies/Adverse Reactions: cephalexin monohydrate [From Keflex] Allergy (Verified 06/02/18 16:32) dicyclomine [From Bentyl] Allergy (Verified 06/02/18 16:32) ketorolac [From Toradol] Allergy (Verified 06/02/18 16:32) metoclopramide [From Reglan] Allergy (Verified 06/02/18 16:32) tramadol Allergy (Verified 06/02/18 16:32) diphenhydramine [From Benadryl] Adverse Reaction (Verified 06/02/18 18:57) Anxiety haloperidol [From Haldol] Adverse Reaction (Verified 06/02/18 18:58) Anxiety Past Medical History - Social History Chew tobacco use (# tins/day): No Frequency of alcohol use: None Drug Abuse: None - Past Medical History Cardiac Medical History: Denies: Hx Coronary Artery Disease, Hx Hypertension Pulmonary Medical History: Denies: Hx Asthma Neurological Medical History: Reports: Hx Migraine Endocrine Medical History: Denies: Hx Diabetes Mellitus Type 1, Hx Diabetes Mellitus Type 2 Renal/ Medical History: Reports: Hx Ovarian Cysts - PCO S. Denies: Hx Peritoneal Dialysis GI Medical History: Reports: Hx Gastritis, Hx Gastroesophageal Reflux Disease, Hx Ulcer, Hx Colonoscopy, Hx Endoscopy Musculoskeltal Medical History: Reports Hx Musculoskeletal Deformity - both arm and left foot, Reports Hx Musculoskeletal Trauma Psychiatric Medical History: Reports: Hx Post Traumatic Stress Disorder Traumatic Medical History: Reports: Hx Fractures - Arms and feet Past Surgical History: Reports: Hx Appendectomy - 2000, Hx Cholecystectomy - 2003, Hx Hysterectomy. Denies: Hx Section - Immunizations Immunizations up to date: Yes Hx Diphtheria, Pertussis, Tetanus Vaccination: Yes - 2006 Physical Exam - Vital signs Vitals: Temp Pulse Resp BP Pulse Ox 98.7 F 77 17 146/79 H 97 06/02/18 16:50 06/02/18 16:50 06/02/18 16:50 06/02/18 16:50 06/02/18 16:50 Course - Vital Signs Vital signs: Temp Pulse Resp BP Pulse Ox 98.7 F 77 17 146/79 H 97 06/02/18 16:50 06/02/18 16:50 06/02/18 16:50 06/02/18 16:50 06/02/18 16:50
[2018-06-02 19:29] LABS: ABSOLUTE BASOPHILS # (AUTO) 0.1 10^3/uL (0.0-0.2); ABSOLUTE EOSINOPHILS # (AUTO) 0.1 10^3/uL (0.0-0.6); ABSOLUTE LYMPHOCYTES (AUTO) 4.8 10^3/uL (0.5-4.7); ABSOLUTE MONOCYTES (AUTO) 0.8 10^3/uL (0.1-1.4); BASOPHILS % (AUTO) 0.7 % (0-2); EOSINOPHILS % (AUTO) 1.1 % (0-6); HEMATOCRIT 41.6 % (36.0-47.0); LYMPHOCYTES % (AUTO) 40.4 % (13-45); MEAN CORPUSCULAR HEMOGLOBIN 29.5 pg (27.0-33.4); MEAN CORPUSCULAR HGB CONC 33.6 g/dL (32.0-36.0); MEAN CORPUSCULAR VOLUME 88 fl (80-97); PLATELET COUNT 425 10^3/uL (150-450); RED BLOOD COUNT 4.75 10^6/uL (3.72-5.28); RED CELL DISTRIBUTION WIDTH 13.2 % (11.5-14.0); SEGMENTED NEUTROPHILS % (AUTO) 50.8 % (42-78); TOTAL CELLS COUNTED % (AUTO) 100 %; WHITE BLOOD COUNT 11.8 10^3/uL (4.0-10.5)
--- NOTE | 2018-06-02 19:41 | ER Document Report ---
ED General - General Chief Complaint: Abdominal Pain Stated Complaint: HEADACHE Time Seen by Provider: 06/02/18 18:53 Mode of Arrival: Ambulatory Notes: 38-year-old female with a history of migraines and chronic abdominal pain with surgical history of hysterectomy/cholecystectomy/appendectomy who presents to the emergency room with migraine headache, dizziness, weakness, decreased p.o. intake for 2 days. She states at home today she had a T-max of 102 but is currently afebrile, complains of vomiting and diarrhea 2 times, neck stiffness that is typical with her migraine, no photophobia. She states this is a typical migraine but she just cannot break the cycle. Patient denies photophobia, ear pain, sore throat, complains of shortness of breath, denies chest pain, complains of abdominal pain which is chronic, denies any urinary symptoms. Patient does have multiple allergies to medicines: Keflex, Toradol, tramadol, Reglan, Benadryl and verbal Haldol. She can take Zofran. Her concern is she has been around sick contacts and had a friend who just in the hospital not too long ago from double pneumonia. Currently she is not on any medicines. TRAVEL OUTSIDE OF THE [place] IN LAST 30 DAYS: No - Related Data Allergies/Adverse Reactions: cephalexin monohydrate [From Keflex] Allergy (Verified 06/02/18 16:32) dicyclomine [From Bentyl] Allergy (Verified 06/02/18 16:32) ketorolac [From Toradol] Allergy (Verified 06/02/18 16:32) metoclopramide [From Reglan] Allergy (Verified 06/02/18 16:32) tramadol Allergy (Verified 06/02/18 16:32) diphenhydramine [From Benadryl] Adverse Reaction (Verified 06/02/18 18:57) Anxiety haloperidol [From Haldol] Adverse Reaction (Verified 06/02/18 18:58) Anxiety Past Medical History - General Information source: Patient - Social History Smoking Status: Current Every Day Smoker Chew tobacco use (# tins/day): No Frequency of alcohol use: None Drug Abuse: None Family History: Reviewed & Not Pertinent Patient has suicidal ideation: No Patient has homicidal ideation: No - Past Medical History Cardiac Medical History: Denies: Hx Coronary Artery Disease, Hx Hypertension Pulmonary Medical History: Denies: Hx Asthma Neurological Medical History: Reports: Hx Migraine Endocrine Medical History: Denies: Hx Diabetes Mellitus Type 1, Hx Diabetes Mellitus Type 2 Renal/ Medical History: Reports: Hx Ovarian Cysts - PCO S. Denies: Hx Peritoneal Dialysis GI Medical History: Reports: Hx Gastritis, Hx Gastroesophageal Reflux Disease, Hx Ulcer, Hx Colonoscopy, Hx Endoscopy Musculoskeletal Medical History: Reports Hx Musculoskeletal Deformity - both arm and left foot, Reports Hx Musculoskeletal Trauma Psychiatric Medical History: Reports: Hx Post Traumatic Stress Disorder Traumatic Medical History: Reports: Hx Fractures - Arms and feet Past Surgical History: Reports: Hx Appendectomy - 2000, Hx Cholecystectomy - 2003, Hx Hysterectomy. Denies: Hx Section - Immunizations Immunizations up to date: Yes Hx Diphtheria, Pertussis, Tetanus Vaccination: Yes - 2006 Review of Systems - Review of Systems Constitutional: See HPI EENT: See HPI Cardiovascular: See HPI Respiratory: See HPI Gastrointestinal: See HPI Genitourinary: See HPI Female Genitourinary: No symptoms reported Musculoskeletal: No symptoms reported Skin: See HPI Hematologic/Lymphatic: No symptoms reported Neurological/Psychological: See HPI Physical Exam - Vital signs Vitals: Temp Pulse Resp BP Pulse Ox 98.7 F 77 17 146/79 H 97 06/02/18 16:50 06/02/18 16:50 06/02/18 16:50 06/02/18 16:50 06/02/18 16:50 - Notes Notes: PHYSICAL EXAMINATION: Reviewed vital signs and charting by RN GENERAL: Alert, interacts well. No acute distress. HEAD: Normocephalic, atraumatic. EYES: Pupils equal, round, and reactive to light. Extraocular movements intact. ENT: Oral mucosa moist, tongue midline. NECK: Full range of motion. Supple. Trachea midline. LUNGS: Clear to auscultation bilaterally, no wheezes, rales, or rhonchi. No respiratory distress. HEART: Regular rate and rhythm. No murmur ABDOMEN: soft, tender to palpation right lower quadrant and generalized lower abdominal tenderness. Non-distended. Bowel sounds present in all 4 quadrants. no McBurney's point tenderness, no Smith sign. EXTREMITIES: Moves all 4 extremities spontaneously. No edema, No cyanosis. BACK: no cervical, thoracic, lumbar midline tenderness. No saddle anesthesia, normal distal neurovascular exam. NEUROLOGICAL: Alert and oriented x3. Normal speech. Normal neurologic exam, no focal neuro deficits PSYCH: Normal affect, normal mood. SKIN: Warm, dry, normal turgor. No rashes or lesions noted. Course - Re-evaluation Re-evalutation: 06/02/18 20:03 38 female seen in the emergency department previously for abdominal pain with no clear etiology here for migraine headache. Patient with multiple allergies so magnesium, Zofran, and IV fluids ordered. Patient with a very mild leukocytosis. 06/02/18 21:10 After intervention patient reports that she is not feeling better and her symptoms are not resolving. 06/02/18 21:39 Reevaluated patient she is having some right lower quadrant pain tenderness. She has had a AARTI and an appendectomy. Unclear why she is having this pain. She states in the past she was diagnosed with gastritis. We will get an acute abdominal series and administer pain control. 06/02/18 22:34 Acute abdominal series shows a nonspecific nonobstructive gas pattern. Urine negative for UTI. I explained to patient that there is likely no emergent process going on as she no longer has her appendix, her ovaries or uterus, or her gallbladder. Patient does have chronic abdominal pain. There are no air-fluid levels on the acute abdominal series and based on clinical impression I do not suspect an SBO, abdominal aneurysm, mesenteric ischemia. Patient is stable for discharge home with close follow-up with a primary care provider. - Vital Signs Vital signs: Temp Pulse Resp BP Pulse Ox 98.3 F 63 16 115/70 99 06/02/18 22:20 06/02/18 22:20 06/02/18 22:20 06/02/18 22:20 06/02/18 22:20 - Laboratory Result Diagrams: 06/02/18 19:15 06/02/18 19:15 Laboratory results interpreted by me: 06/02/18 06/02/18 19:15 19:15 WBC 11.8 H Absolute Lymphocytes 4.8 H Calcium 10.3 H Discharge - Discharge Clinical Impression: Abdominal pain Qualifiers: Abdominal location: right lower quadrant Qualified Code(s): R10.31 - Right lower quadrant pain Headache Qualifiers: Headache type: unspecified Headache chronicity pattern: acute headache Intractability: not intractable Qualified Code(s): R51 - Headache Condition: Good Disposition: HOME, SELF-CARE Instructions: Abdominal Pain ([facility]), Headache ([facility]) Additional Instructions: You are seen in the emergency department this evening for headache and abdominal pain. We are happy that her headache resolved with the magnesium and the Zofran. It is unclear why you are having the abdominal pain as the abdominal x- ray did not show any evidence of a small bowel obstruction or any concerning pathology. Fortunately, there is no emergent condition at this time. If you develop severe, unremitting pain, tearing chest pain or tearing epigastric pain that ribs through to your back, you pass out, you have bloody diarrhea or bloody vomiting, please return to the emergency department.
[2018-06-02 19:48] LABS: ALANINE AMINOTRANSFERASE 40 U/L (9-52); ALBUMIN 4.6 g/dL (3.5-5.0); ALKALINE PHOSPHATASE 96 U/L (38-126); ANION GAP 9 (5-19); ASPARTATE AMINO TRANSFERASE 28 U/L (14-36); BILIRUBIN,DIRECT 0.3 mg/dL (0.0-0.4); BILIRUBIN,TOTAL 0.5 mg/dL (0.2-1.3); BLOOD UREA NITROGEN 15 mg/dL (7-20); CALCIUM 10.3 mg/dL (8.4-10.2); CARBON DIOXIDE 26 mmol/L (22-30); CHLORIDE 106 mmol/L (98-107); GLUCOSE 101 mg/dL (75-110); POTASSIUM 4.7 mmol/L (3.6-5.0); SODIUM 140.7 mmol/L (137-145); TOTAL PROTEIN 7.7 g/dL (6.3-8.2)
[2018-06-02] MEDS ORDERED: OXYCODONE-ACETAMINOPHEN 5-325 MG TABLET PO ONE (21:38)
--- NOTE | 2018-06-02 22:12 | RADIOLOGY REPORT (SQ) ---
EXAM DESCRIPTION: XR ABDOMEN SUPINE AND ERECT WITH CHEST (ABD ACUTE SERIES) COMPLETED DATE/TME: 06/02/2018 21:36 CLINICAL HISTORY: 38 years, Female, lower abd pain COMPARISON: 11/05/2017 abdominal series. Chest x-ray 04/21/2018. NUMBER OF VIEWS: 4 TECHNIQUE: Upright chest with supine and erect views of the abdomen LIMITATIONS: None. FINDINGS: Heart size is normal. Osteopenia. Lungs are clear. No pneumothorax. No free air under the hemidiaphragms. Nonspecific, nonobstructive bowel gas pattern. Status post cholecystectomy. No free air IMPRESSION: Negative chest. Nonspecific, nonobstructive bowel gas pattern copyright 2010 [employer] [facility]- All Rights Reserved
[2018-06-02 22:21] VITALS: BP 115/70
[2018-06-02 22:29] LABS: APPEARANCE,URINE CLEAR; BILIRUBIN,URINE NEGATIVE (NEGATIVE); COLOR,URINE STRAW; GLUCOSE, URINE NEGATIVE (NEGATIVE); KETONES,URINE NEGATIVE (NEGATIVE); LEUKOCYTE ESTERASE,URINE NEGATIVE (NEGATIVE); NITRITE,URINE NEGATIVE (NEGATIVE); PROTEIN,URINE NEGATIVE (NEGATIVE); UROBILINOGEN,URINE NEGATIVE mg/dL (<2.0)
[2018-06-02] MEDS ORDERED: HYDROCODONE/ACETAMINOPHEN 5-325 MG (6 TAB/ER DISP) PO PRN (22:49)
== END 2018-06-02 22:54 | disposition home or self-care (01) ==
LOC: ER 16:30
DX: G89.29 Other chronic pain (principal); R10.31 Right lower quadrant pain; R51 Headache; F17.200 Nicotine dependence, unspecified, uncomplicated; Z90.49 Acquired absence of other specified parts of digestive tract; Z90.710 Acquired absence of both cervix and uterus
CPT/HCPCS: 99283; 96375; 96365; 36415; 83690; 85025; 81025; 80053; 81001; 74022; J3475; J2405; J7120

== ENCOUNTER 2018-08-07 19:00 | Emergency (ER) | payer SELFPAY ==
[2018-08-07] MEDS ORDERED: LIDOCAINE 5% (700 MG) TRANSDERMAL ADH..PATCH TP ONE (19:31)
--- NOTE | 2018-08-07 19:34 | ER Document Report ---
ED Medical Screen (RME) - General Chief Complaint: Chest Pain Stated Complaint: CHEST PAIN TRAVEL OUTSIDE OF THE [place] IN LAST 30 DAYS: No - HPI Notes: 08/07/18 19:31 Patient is a 38-year-old female who presents to the emergency department complaining of left sided chest pain that will occasionally radiate to the shoulder that began about 45 minutes ago without precipitating event. Patient states that the pain is worse with movement and pushing the area. Denies any significant cardiopulmonary medical history. + smoker. Denies any prolonged immobilization, distance travel, recent surgery/trauma, personal cancer history, hormone use, or previous DVT/PE. Denies FLORES, fever, neck pain, URI, Abd pain, v/d, or rash. I have treated and performed a rapid initial assessment of this patient. A comprehensive ED assessment and evaluation of the patient, analysis of test results and completion of medical decision making process will be conducted by additional ED providers. PHYSICAL EXAMINATION: GENERAL: Well-appearing, well-nourished and in no acute distress. Chest: + moderate tenderness to palpation of the lt pectoral area. LUNGS: Breath sounds clear to auscultation bilaterally and equal. No wheezes rales or rhonchi. HEART: Regular rate and rhythm without murmurs, rubs, gallops. Extremities: No cyanosis, clubbing, or edema b/l. Peripheral pulses 2+. Saroj neg. No asymmetry to LE's. - Related Data Allergies/Adverse Reactions: cephalexin monohydrate [From Keflex] Allergy (Verified 08/07/18 19:16) dicyclomine [From Bentyl] Allergy (Verified 08/07/18 19:16) ketorolac [From Toradol] Allergy (Verified 08/07/18 19:16) metoclopramide [From Reglan] Allergy (Verified 08/07/18 19:16) tramadol Allergy (Verified 08/07/18 19:16) diphenhydramine [From Benadryl] Adverse Reaction (Verified 08/07/18 19:16) Anxiety haloperidol [From Haldol] Adverse Reaction (Verified 08/07/18 19:16) Anxiety Past Medical History - Social History Frequency of alcohol use: None Drug Abuse: None - Past Medical History Cardiac Medical History: Denies: Hx Coronary Artery Disease, Hx Hypertension Pulmonary Medical History: Denies: Hx Asthma Neurological Medical History: Reports: Hx Migraine Endocrine Medical History: Denies: Hx Diabetes Mellitus Type 1, Hx Diabetes Mellitus Type 2 Renal/ Medical History: Reports: Hx Ovarian Cysts - PCO S. Denies: Hx Peritoneal Dialysis GI Medical History: Reports: Hx Gastritis, Hx Gastroesophageal Reflux Disease - gastritis, Hx Ulcer, Hx Colonoscopy, Hx Endoscopy Musculoskeltal Medical History: Reports Hx Musculoskeletal Deformity - both arm and left foot, Reports Hx Musculoskeletal Trauma Psychiatric Medical History: Reports: Hx Post Traumatic Stress Disorder Traumatic Medical History: Reports: Hx Fractures - Arms and feet Past Surgical History: Reports: Hx Appendectomy - 2000, Hx Cholecystectomy - 2003, Hx Hysterectomy. Denies: Hx Section - Immunizations Immunizations up to date: Yes Hx Diphtheria, Pertussis, Tetanus Vaccination: Yes - 2006 Physical Exam - Vital signs Vitals: Temp Pulse Resp BP Pulse Ox 97.8 F 83 24 H 137/89 H 100 08/07/18 19:09 08/07/18 19:09 08/07/18 19:09 08/07/18 19:09 08/07/18 19:09 Course - Vital Signs Vital signs: Temp Pulse Resp BP Pulse Ox 97.8 F 83 24 H 137/89 H 100 08/07/18 19:09 08/07/18 19:09 08/07/18 19:09 08/07/18 19:09 08/07/18 19:09
[2018-08-07 20:16] LABS: ABSOLUTE BASOPHILS # (AUTO) 0.1 10^3/uL (0.0-0.2); ABSOLUTE EOSINOPHILS # (AUTO) 0.2 10^3/uL (0.0-0.6); ABSOLUTE LYMPHOCYTES (AUTO) 4.7 10^3/uL (0.5-4.7); ABSOLUTE MONOCYTES (AUTO) 0.9 10^3/uL (0.1-1.4); ABSOLUTE NEUT (AUTO) 6.7 10^3/uL (1.7-8.2); APPEARANCE,URINE SLIGHTLY-CLOUDY; BASOPHILS % (AUTO) 1.1 % (0-2); BILIRUBIN,URINE NEGATIVE (NEGATIVE); COLOR,URINE YELLOW; EOSINOPHILS % (AUTO) 1.8 % (0-6); GLUCOSE, URINE NEGATIVE (NEGATIVE); HEMATOCRIT 40.2 % (36.0-47.0); HEMOGLOBIN 13.5 g/dL (12.0-15.5); KETONES,URINE NEGATIVE (NEGATIVE); LEUKOCYTE ESTERASE,URINE NEGATIVE (NEGATIVE); LYMPHOCYTES % (AUTO) 36.8 % (13-45); MEAN CORPUSCULAR HEMOGLOBIN 29.6 pg (27.0-33.4); MEAN CORPUSCULAR HGB CONC 33.6 g/dL (32.0-36.0); MEAN CORPUSCULAR VOLUME 88 fl (80-97); MONOCYTES % (AUTO) 7.4 % (3-13); NITRITE,URINE NEGATIVE (NEGATIVE); PLATELET COUNT 416 10^3/uL (150-450); PROTEIN,URINE NEGATIVE (NEGATIVE); RED BLOOD COUNT 4.57 10^6/uL (3.72-5.28); RED CELL DISTRIBUTION WIDTH 13.5 % (11.5-14.0); SEGMENTED NEUTROPHILS % (AUTO) 52.9 % (42-78); TOTAL CELLS COUNTED % (AUTO) 100 %; URINE SPECIFIC GRAVITY 1.017; UROBILINOGEN,URINE NEGATIVE mg/dL (<2.0); WHITE BLOOD COUNT 12.7 10^3/uL (4.0-10.5)
--- NOTE | 2018-08-07 20:35 | ER Document Report ---
ED Cardiac - General Chief Complaint: Chest Pain Stated Complaint: CHEST PAIN Time Seen by Provider: 08/07/18 20:11 TRAVEL OUTSIDE OF THE [place] IN LAST 30 DAYS: No - HPI Notes: Patient is a 38-year-old female with a history of migraines and gastritis today with a chief complaint of left-sided chest pain. Patient states that 45 minutes prior to arrival she developed left-sided chest pain that radiated into her left arm. Patient reports that it is a constant sharp twisting type of pain. Patient states that she had similar pain in the past in 2011. Patient states that she followed up with a doctor who placed her on multiple Holter monitors. Patient stated she was told "my heart would stop for 5 seconds." But denies being told she needed a pacemaker or intervention. Patient's mother does have a history of a heart attack and her sister who is 40 years old has a pacemaker due to similar symptoms. Patient reports that she does smoke about 5 cigarettes/day. 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 Patient denies regular drug use or IV drug use. Patient reports that she is having shortness of breath. Denies nausea or vomiting. Patient did report having an episode of diarrhea 3-4 times today. Patient reports feeling lightheaded. Patient does have a history of gastritis, states that she normally takes Protonix and ran out of her medication 1 month ago. - Related Data Allergies/Adverse Reactions: cephalexin monohydrate [From Keflex] Allergy (Verified 08/07/18 19:16) dicyclomine [From Bentyl] Allergy (Verified 08/07/18 19:16) ketorolac [From Toradol] Allergy (Verified 08/07/18 19:16) metoclopramide [From Reglan] Allergy (Verified 08/07/18 19:16) tramadol Allergy (Verified 08/07/18 19:16) diphenhydramine [From Benadryl] Adverse Reaction (Verified 08/07/18 19:16) Anxiety haloperidol [From Haldol] Adverse Reaction (Verified 08/07/18 19:16) Anxiety Past Medical History - Social History Smoking Status: Current Every Day Smoker Frequency of alcohol use: None Drug Abuse: None Family History: Reviewed & Not Pertinent Patient has suicidal ideation: No Patient has homicidal ideation: No - Past Medical History Cardiac Medical History: Denies: Hx Coronary Artery Disease, Hx Hypertension Pulmonary Medical History: Denies: Hx Asthma Neurological Medical History: Reports: Hx Migraine Endocrine Medical History: Denies: Hx Diabetes Mellitus Type 1, Hx Diabetes Mellitus Type 2 Renal/ Medical History: Reports: Hx Ovarian Cysts - PCO S. Denies: Hx Peritoneal Dialysis GI Medical History: Reports: Hx Gastritis, Hx Gastroesophageal Reflux Disease - gastritis, Hx Ulcer, Hx Colonoscopy, Hx Endoscopy Musculoskeletal Medical History: Reports Hx Musculoskeletal Deformity - both arm and left foot, Reports Hx Musculoskeletal Trauma Psychiatric Medical History: Reports: Hx Post Traumatic Stress Disorder Traumatic Medical History: Reports: Hx Fractures - Arms and feet Past Surgical History: Reports: Hx Appendectomy - 2000, Hx Cholecystectomy - 2003, Hx Hysterectomy. Denies: Hx Section - Immunizations Immunizations up to date: Yes Hx Diphtheria, Pertussis, Tetanus Vaccination: Yes - 2006 Physical Exam - Vital signs Vitals: Temp Pulse Resp BP Pulse Ox 97.8 F 83 24 H 137/89 H 100 08/07/18 19:09 08/07/18 19:09 08/07/18 19:09 08/07/18 19:09 08/07/18 19:09 Notes: Patient's respiratory rate during evaluation was between 18 and 20. - Notes Notes: GENERAL: Well-appearing, well-nourished and in no acute distress. HEAD: Atraumatic, normocephalic. EYES: Pupils equal round and reactive to light, extraocular movements intact, sclera anicteric, conjunctiva are normal. ENT: TMs normal, nares patent, oropharynx clear without exudates. Moist mucous membranes. NECK: Normal range of motion, supple without lymphadenopathy or JVD. LUNGS: Breath sounds clear to auscultation bilaterally and equal. No wheezes rales or rhonchi. HEART: Regular rate and rhythm without murmurs, rubs or gallops. Chest tenderness with palpation located in the center of the chest and left chest wall. ABDOMEN: Soft, nontender, normoactive bowel sounds. No guarding, no rebound. No masses appreciated. EXTREMITIES: Normal range of motion, no pitting or edema. No clubbing or cyanosis. NEUROLOGICAL: Cranial nerves II through XII grossly intact. Normal speech, normal gait. PSYCH: Normal mood, normal affect. SKIN: Warm, Dry, normal turgor, no rashes or lesions noted. Course - Re-evaluation Re-evalutation: 08/07/18 20:36 Upon initial assessment patient is complaining of a 4 out of 5 left-sided chest pain radiating into the left side of her neck and left arm. Patient is a sinus rhythm on the monitor. Lab work has been drawn, will wait for results and medicate for pain. Patient heart score 2. Do not suspect pulmonary embolism, patient is not tachycardic, not tachypneic, not hypoxic, patient is not on control pills or hormones, patient does not have a history of a blood clot, there is no swelling to her lower extremities or edema. 08/07/18 21:26 Upon reevaluation patient reports that the morphine helped her pain slightly. Patient states her pain is a 3 out of 5. Patient is resting comfortably on stretcher. 08/07/18 22:54 Complaining of 3 out of 5 chest pain. Her repeat troponin will be at 2350. Since patient only had a small improvement of her pain with the morphine and her noncompliance with Protonix with her history of gastritis will try to give Pepcid and Carafate to see if this helps with her chest discomfort. Patient is tender to palpation in the center of her chest and left side of her chest. 08/07/18 23:25 Patient waiting to get medicated with the Pepcid and Carafate. Upon reevaluation patient continues to complain of 3 out of 5 chest pain. Patient states that is worse when moving, worse with deep breath. She remains tender to the center of her chest and left-sided chest with palpation. Patient denies IV drug use, recent viral illness to include sore throat, cough, cold symptoms or any other recent illness. Patient is not tachycardic with a rate of 83 in sinus rhythm, patient is not hypoxic she is 99% on room air, patient is not tachypneic respiratory rate 18-20. Patient's delta troponin was negative. Patient's AST and ALT slightly elevated, patient states that she has been sober from drinking for 2 months, that she has been told in the past that she has elevated liver enzymes, and that she may have cirrhosis. Informed patient to follow-up with her primary care physician to have these levels monitored. Also informed patient to follow-up with her primary care regarding this chest discomfort as she may need to wear a Holter monitor for further evaluation. Patient given strict return precautions to include worsening of chest pain, shortness of breath, dizziness, coughing up blood, or any worsening signs or symptoms. Patient states she has been out of her Protonix for her gastritis for over 1 month. I will prescribe a one-month dose and have patient follow-up with her primary care physician for management of her gastritis. - Vital Signs Vital signs: Temp Pulse Resp BP Pulse Ox 97.8 F 83 19 126/95 H 95 08/07/18 19:09 08/07/18 19:09 08/08/18 02:01 08/08/18 02:01 08/08/18 02:01 - Laboratory Result Diagrams: 08/07/18 19:47 08/07/18 19:47 Laboratory results interpreted by me: 08/07/18 08/07/18 19:47 19:47 WBC 12.7 H Glucose 70 L AST 65 H ALT 76 H 08/08/18 Patient's white blood cell count 12.7. Patient is not febrile and chest x-ray is negative. I do not believe the significant at this time. - Diagnostic Test Radiology reviewed: Image reviewed, Reports reviewed - EKG Interpretation by Me Additional EKG results interpreted by me: 08/07/18 22:55 Patient's EKG shows a sinus rhythm with a rate of 82. [place] interval is normal at 172, QT 368, QTc is 430. Patient does have a very minimal T wave inversion in lead III but not noted in consecutive leads and also consistent with her old EKG. there is no ST segment elevation or ectopy noted. Discharge - Discharge Clinical Impression: Chest wall pain, Pleurisy Condition: Stable Disposition: HOME, SELF-CARE Instructions: Chest Wall Pain ([facility]), Chest Pain of Unclear Cause ([facility]) Additional Instructions: Today you were seen in the emergency department for evaluation of your chest pain. We did cycle 2 cardiac enzymes which are called troponins. Those were negative. During your stay he remained in a sinus rhythm without any abnormalities. Your liver enzymes called AST and ALT were slightly elevated. You had reported a possible history of cirrhosis in the past. Follow-up with your primary physician for evaluation of your liver enzymes. Chest x-ray was normal and it is unclear what is causing her chest pain. Your chest pain was reproducible with palpation and worse with movement, I do not believe that this is cardiac in nature. Given you a dose of steroids for possible pleurisy, the states in your system for up to 3 days. Please follow-up with your primary care physician for further evaluation of your chest discomfort. Please return to the emergency department if you have any worsening of symptoms such as continued chest pain that is worse, fever, sweating, vomiting, dizziness, numbness or tingling or any other concerning signs or symptoms. Chest Pain of Unclear Cause The exact cause of your chest pain isn't clear. Fortunately, there is no evidence of a dangerous medical condition. Further testing may be required to find the source of the pain. Most often, we find that this pain is coming from the chest wall -- the muscles or rib joints in the chest. But chest pain can come from the lung and l lesley lining, the esophagus, the heart valves or heart lining, and even the stomach or gallbladder. Rest. Eat lightly until the pain is gone. We may prescribe medicine for pain and inflammation. You should call the physician immediately if the pain radiates to the shoulder, jaw or arms; if you start to run a fever or develop a cough; or if you develop shortness of breath, or other new or alarming symptoms. Chest Wall Pain Your chest pain has been diagnosed as coming from the chest wall. This is often caused by straining the muscles or joints in the chest during physical activity, direct trauma, coughing, or vigorous vomiting. Persons with arthritis are especially prone to this type of pain, due to inflammation of the cartilage joints near the breast bone. Occasionally, no cause can be found. Rest from strenuous physical activity. This kind of chest pain is usually made worse by movement of the chest. Depending on the symptoms, we may prescribe medicine for pain, muscle relaxation, and antiinflammatory effects. If the pain is new, and seems to be due to muscle strain, cold packs can help. Otherwise, apply gentle warmth to the painful area for 15 minutes every hour or two. You should contact the doctor immediately if things change. Further e valuation is needed if you develop a fever or cough, if the nature of the pain changes, or if you become short of breath. Prescriptions: Pantoprazole Sodium [Protonix] 20 mg PO BID 30 Days #60 tablet.dr Forms: Return to Work
[2018-08-07] MEDS ORDERED: ONDANSETRON HCL INJ/PF 4 MG/2 ML SDV IV ONE (20:36)
[2018-08-07] MEDS ORDERED: MORPHINE SULFATE 10 MG/ML INJ IV ONE (20:36)
[2018-08-07 20:37] LABS: ALANINE AMINOTRANSFERASE 76 U/L (9-52); ALBUMIN 4.1 g/dL (3.5-5.0); ALKALINE PHOSPHATASE 90 U/L (38-126); ANION GAP 9 (5-19); ASPARTATE AMINO TRANSFERASE 65 U/L (14-36); BILIRUBIN,DIRECT 0.4 mg/dL (0.0-0.4); BILIRUBIN,TOTAL 0.6 mg/dL (0.2-1.3); BLOOD UREA NITROGEN 16 mg/dL (7-20); CALCIUM 9.8 mg/dL (8.4-10.2); CARBON DIOXIDE 28 mmol/L (22-30); CHLORIDE 103 mmol/L (98-107); GLUCOSE 70 mg/dL (75-110); POTASSIUM 4.5 mmol/L (3.6-5.0); SODIUM 139.7 mmol/L (137-145); TOTAL PROTEIN 7.3 g/dL (6.3-8.2)
--- NOTE | 2018-08-07 20:40 | RADIOLOGY REPORT (SQ) ---
EXAM DESCRIPTION: XR CHEST 1 VIEW COMPLETED DATE/TME: 08/07/2018 19:10 CLINICAL HISTORY: 38 years, Female, CP COMPARISON: Prior study from 10/05/2017 NUMBER OF VIEWS: One TECHNIQUE: Single frontal view of the chest was obtained portably. LIMITATIONS: None. FINDINGS: Cardiac and mediastinal contours are stable. Lungs are clear. No pleural effusion or pneumothorax. IMPRESSION: No acute disease. copyright 2010 [employer]- All Rights Reserved
[2018-08-07] MEDS ORDERED: FAMOTIDINE INJ/PF 20 MG/2 ML SDV IV ONE (22:48)
[2018-08-07] MEDS ORDERED: SUCRALFATE 1 GM TABLET PO ONE (22:48)
--- NOTE | 2018-08-07 23:42 | EKG REPORT ---
SEVERITY:- OTHERWISE NORMAL ECG - SINUS RHYTHM BORDERLINE LEFT AXIS DEVIATION : Confirmed by: Swathi Cameron MD 07-Aug-2018 23:42:20
[2018-08-08] MEDS ORDERED: DEXAMETHASONE SOD PHOS INJ 10 MG/1 ML VIAL IV ONE (01:28)
[2018-08-08] MEDS ORDERED: MORPHINE SULFATE 10 MG/ML INJ IV ONE (01:28)
[2018-08-08] MEDS ORDERED: HYDROCODONE/ACETAMINOPHEN 5-325 MG (6 TAB/ER DISP) PO PRN (02:20)
[2018-08-08 02:22] VITALS: BP 126/95
== END 2018-08-08 02:34 | disposition home or self-care (01) ==
LOC: ER 19:00
DX: R09.1 Pleurisy (principal); R07.89 Other chest pain; K29.70 Gastritis, unspecified, without bleeding; T47.1X6A Underdosing of other antacids and anti-gastric-secretion drugs, initial encounter; Z91.128 Patient's intentional underdosing of medication regimen for other reason; Z91.14 Patient's other noncompliance with medication regimen; R74.0 Nonspecific elevation of levels of transaminase and lactic acid dehydrogenase [LDH]; F10.11 Alcohol abuse, in remission; R06.02 Shortness of breath; R19.7 Diarrhea, unspecified; R42 Dizziness and giddiness; F17.210 Nicotine dependence, cigarettes, uncomplicated; Z82.49 Family history of ischemic heart disease and other diseases of the circulatory system; Z88.1 Allergy status to other antibiotic agents; Z88.8 Allergy status to other drugs, medicaments and biological substances; Z88.5 Allergy status to narcotic agent
CPT/HCPCS: 93005; 96376; 99284; 96374; 96375; 36415; 85025; 81025; 80053; 81001; 84484; 71045; 93010; J2270 ×2; J2405; S0028; J1100

== ENCOUNTER 2018-09-06 16:03 | Emergency (ER) | payer SELFPAY ==
--- NOTE | 2018-09-06 16:27 | ER Document Report ---
ED Medical Screen (RME) - General Chief Complaint: Chest Pain Stated Complaint: CHEST PAIN TRAVEL OUTSIDE OF THE [place] IN LAST 30 DAYS: No - HPI Notes: 09/06/18 16:26 Patient is a 38-year-old female who presents to the emergency department complaining of left sided chest pain that will occasionally radiate to the shoulder that began about 1hr ago without precipitating event. Pain is in similar area to when she was here 1mo ago. Denies any significant cardiopulmonary medical history. + smoker. Denies any prolonged immobilization, distance travel, recent surgery/trauma, personal cancer history, hormone use, or previous DVT/PE. Denies FLORES, fever, neck pain, URI, Abd pain, v/d, or rash. I have treated and performed a rapid initial assessment of this patient. A comprehensive ED assessment and evaluation of the patient, analysis of test results and completion of medical decision making process will be conducted by additional ED providers. PHYSICAL EXAMINATION: GENERAL: Well-appearing, well-nourished and in no acute distress. LUNGS: Breath sounds clear to auscultation bilaterally and equal. No wheezes rales or rhonchi. HEART: Regular rate and rhythm without murmurs, rubs, gallops. Extremities: No cyanosis, clubbing, or edema b/l. Peripheral pulses 2+. Saroj neg. No asymmetry to LE's. - Related Data Allergies/Adverse Reactions: cephalexin monohydrate [From Keflex] Allergy (Verified 09/06/18 16:08) dicyclomine [From Bentyl] Allergy (Verified 09/06/18 16:08) ketorolac [From Toradol] Allergy (Verified 09/06/18 16:08) metoclopramide [From Reglan] Allergy (Verified 09/06/18 16:08) tramadol Allergy (Verified 09/06/18 16:08) diphenhydramine [From Benadryl] Adverse Reaction (Verified 09/06/18 16:08) Anxiety haloperidol [From Haldol] Adverse Reaction (Verified 09/06/18 16:08) Anxiety Past Medical History - Past Medical History Cardiac Medical History: Denies: Hx Coronary Artery Disease, Hx Hypertension Pulmonary Medical History: Denies: Hx Asthma Neurological Medical History: Reports: Hx Migraine Endocrine Medical History: Denies: Hx Diabetes Mellitus Type 1, Hx Diabetes Mellitus Type 2 Renal/ Medical History: Reports: Hx Ovarian Cysts - PCO S. Denies: Hx Peritoneal Dialysis GI Medical History: Reports: Hx Gastritis, Hx Gastroesophageal Reflux Disease - gastritis, Hx Ulcer, Hx Colonoscopy, Hx Endoscopy Musculoskeltal Medical History: Reports Hx Musculoskeletal Deformity - both arm and left foot, Reports Hx Musculoskeletal Trauma Psychiatric Medical History: Reports: Hx Post Traumatic Stress Disorder Traumatic Medical History: Reports: Hx Fractures - Arms and feet Past Surgical History: Reports: Hx Appendectomy - 2000, Hx Cholecystectomy - 2003, Hx Hysterectomy. Denies: Hx Section - Immunizations Immunizations up to date: Yes Hx Diphtheria, Pertussis, Tetanus Vaccination: Yes - 2006 Physical Exam - Vital signs Vitals: Temp Pulse Resp BP Pulse Ox 97.8 F 87 18 138/86 H 98 09/06/18 16:26 09/06/18 16:26 09/06/18 16:26 09/06/18 16:26 09/06/18 16:26 Course - Vital Signs Vital signs: Temp Pulse Resp BP Pulse Ox 97.8 F 87 18 138/86 H 98 09/06/18 16:26 09/06/18 16:26 09/06/18 16:26 09/06/18 16:26 09/06/18 16:26
--- NOTE | 2018-09-06 17:22 | RADIOLOGY REPORT (SQ) ---
EXAM DESCRIPTION: CHEST SINGLE VIEW COMPLETED DATE/TIME: 09/06/2018 5:12 pm REASON FOR STUDY: CP COMPARISON: 08/07/2018 TECHNIQUE: Single frontal radiographic view of the chest acquired. NUMBER OF VIEWS: One view. LIMITATIONS: None. FINDINGS: LUNGS AND PLEURA: No pneumothorax. Minimal basilar subsegmental atelectasis. No consolid ation or pleural effusion. MEDIASTINUM AND HILAR STRUCTURES: Stable. HEART AND VASCULAR STRUCTURES: Stable. BONES: No acute findings. HARDWARE: None in the chest. OTHER: No other significant finding. IMPRESSION: Minimal basilar subsegmental atelectasis. No consolidation or pleural effusion. TECHNICAL DOCUMENTATION: JOB ID: [id number] [id number] 2010 [employer]- All Rights Reserved Reading location - IP/workstation name: [email or web address]
[2018-09-06 17:32] LABS: ABSOLUTE BASOPHILS # (AUTO) 0.1 10^3/uL (0.0-0.2); ABSOLUTE EOSINOPHILS # (AUTO) 0.1 10^3/uL (0.0-0.6); ABSOLUTE LYMPHOCYTES (AUTO) 3.2 10^3/uL (0.5-4.7); ABSOLUTE MONOCYTES (AUTO) 0.6 10^3/uL (0.1-1.4); ABSOLUTE NEUT (AUTO) 4.6 10^3/uL (1.7-8.2); BASOPHILS % (AUTO) 0.9 % (0-2); EOSINOPHILS % (AUTO) 1.6 % (0-6); HEMATOCRIT 40.8 % (36.0-47.0); HEMOGLOBIN 13.7 g/dL (12.0-15.5); LYMPHOCYTES % (AUTO) 37.2 % (13-45); MEAN CORPUSCULAR HEMOGLOBIN 29.2 pg (27.0-33.4); MEAN CORPUSCULAR HGB CONC 33.5 g/dL (32.0-36.0); MEAN CORPUSCULAR VOLUME 87 fl (80-97); MONOCYTES % (AUTO) 6.5 % (3-13); PLATELET COUNT 405 10^3/uL (150-450); RED BLOOD COUNT 4.69 10^6/uL (3.72-5.28); RED CELL DISTRIBUTION WIDTH 13.1 % (11.5-14.0); SEGMENTED NEUTROPHILS % (AUTO) 53.8 % (42-78); TOTAL CELLS COUNTED % (AUTO) 100 %; WHITE BLOOD COUNT 8.5 10^3/uL (4.0-10.5)
[2018-09-06 17:45] LABS: ALANINE AMINOTRANSFERASE 25 U/L (9-52); ALBUMIN 4.2 g/dL (3.5-5.0); ALKALINE PHOSPHATASE 82 U/L (38-126); ANION GAP 9 (5-19); ASPARTATE AMINO TRANSFERASE 20 U/L (14-36); BILIRUBIN,DIRECT 0.2 mg/dL (0.0-0.4); BILIRUBIN,TOTAL 0.4 mg/dL (0.2-1.3); BLOOD UREA NITROGEN 11 mg/dL (7-20); CALCIUM 9.9 mg/dL (8.4-10.2); CARBON DIOXIDE 23 mmol/L (22-30); CHLORIDE 107 mmol/L (98-107); GLUCOSE 97 mg/dL (75-110); POTASSIUM 4.7 mmol/L (3.6-5.0); SODIUM 138.8 mmol/L (137-145); TOTAL PROTEIN 7.3 g/dL (6.3-8.2)
[2018-09-06] MEDS ORDERED: ACETAMINOPHEN 325 MG TABLET PO ONE (19:16)
[2018-09-06] MEDS ORDERED: LIDOCAINE 5% (700 MG) TRANSDERMAL ADH..PATCH TP ONE (19:16)
[2018-09-06] MEDS ORDERED: DEXAMETHASONE SOD PHOS INJ 10 MG/1 ML VIAL IV ONE (19:16)
--- NOTE | 2018-09-06 19:22 | ER Document Report ---
ED General - General Chief Complaint: Chest Pain Stated Complaint: CHEST PAIN Time Seen by Provider: 09/06/18 16:48 Notes: Patient is a 38-year-old female with past medical history of PTSD, gastritis, presents with left shoulder, left subscapular, left arm and left chest pain that started contrary to triage assessment at 4 AM this morning greater than 12 hours prior to presentation. I did clarify the onset with the patient on 2 separate occasions and she is clear to state that has been going since 4 AM this morning not 1 hour prior to arrival. She describes the pain is a sharp, stabbing, throbbing pain worsened by movement of the left arm and chest wall. She has not tried nothing for improvement of the pain. States this feels exactly the same as when she was here 1 month ago and had complete resolution after receiving steroids. She notes there is some intermittent paresthesias in her left forearm and hand again worsened by movement of the shoulder. She regards the pain is being severe and constant in nature. She has not seen her primary care physician regarding today's concerns. Denies loss of sensation or focal weakne ss. TRAVEL OUTSIDE OF THE [place] IN LAST 30 DAYS: No - Related Data Allergies/Adverse Reactions: cephalexin monohydrate [From Keflex] Allergy (Verified 09/06/18 16:08) dicyclomine [From Bentyl] Allergy (Verified 09/06/18 16:08) ketorolac [From Toradol] Allergy (Verified 09/06/18 16:08) metoclopramide [From Reglan] Allergy (Verified 09/06/18 16:08) tramadol Allergy (Verified 09/06/18 16:08) diphenhydramine [From Benadryl] Adverse Reaction (Verified 09/06/18 16:08) Anxiety haloperidol [From Haldol] Adverse Reaction (Verified 09/06/18 16:08) Anxiety Past Medical History - General Information source: Patient - Social History Smoking Status: Current Every Day Smoker Frequency of alcohol use: None Drug Abuse: None Lives with: Spouse/Significant other Family History: Reviewed & Not Pertinent Patient has suicidal ideation: No Patient has homicidal ideation: No - Past Medical History Cardiac Medical History: Denies: Hx Coronary Artery Disease, Hx Hypertension Pulmonary Medical History: Denies: Hx Asthma Neurological Medical History: Reports: Hx Migraine Endocrine Medical History: Denies: Hx Diabetes Mellitus Type 1, Hx Diabetes Mellitus Type 2 Renal/ Medical History: Reports: Hx Ovarian Cysts - PCO S. Denies: Hx Peritoneal Dialysis GI Medical History: Reports: Hx Gastritis, Hx Gastroesophageal Reflux Disease - gastritis, Hx Ulcer, Hx Colonoscopy, Hx Endoscopy Musculoskeletal Medical History: Reports Hx Musculoskeletal Deformity - both arm and left foot, Reports Hx Musculoskeletal Trauma Psychiatric Medical History: Reports: Hx Post Traumatic Stress Disorder Traumatic Medical History: Reports: Hx Fractures - Arms and feet Past Surgical History: Reports: Hx Appendectomy - 2000, Hx Cholecystectomy - 2003, Hx Hysterectomy. Denies: Hx Section - Immunizations Immunizations up to date: Yes Hx Diphtheria, Pertussis, Tetanus Vaccination: Yes - 2006 Review of Systems - Review of Systems Notes: Constitutional: Negative for fever. HENT: Negative for sore throat. Eyes: Negative for visual changes. Cardiovascular: Negative palpitations Respiratory: Negative for shortness of breath. Gastrointestinal: Negative for abdominal pain, vomiting or diarrhea. Genitourinary: Negative for dysuria. Musculoskeletal: Positive for left chest wall, left shoulder, left arm, left upper back pain Skin: Negative for rash. Neurological: Negative for headaches, weakness or numbness. 10 point ROS negative except as marked above and in HPI. Physical Exam - Vital signs Vitals: Temp Pulse Resp BP Pulse Ox 97.8 F 87 18 138/86 H 98 09/06/18 16:26 09/06/18 16:26 09/06/18 16:26 09/06/18 16:26 09/06/18 16:26 Interpretation: Normal Notes: PHYSICAL EXAMINATION: GENERAL: Well-appearing, well-nourished and in no acute distress. HEAD: Atraumatic, normocephalic. EYES: Pupils equal round and reactive to light, extraocular movements intact, sclera anicteric, conjunctiva are normal. ENT: nares patent, oropharynx clear without exudates. Moist mucous membranes. NECK: Normal range of motion, supple without lymphadenopathy LUNGS: Breath sounds clear to auscultation bilaterally and equal. No wheezes rales or rhonchi. HEART: Regular rate and rhythm without murmurs ABDOMEN: Soft, nontender, normoactive bowel sounds. No guarding, no rebound. No masses appreciated. EXTREMITIES: Normal range of motion, no pitting or edema. No cyanosis. NEUROLOGICAL: Face symmetric. Tongue protrudes midline. Extraocular motions intact. Pupils are 2 mm and equally reactive. Normal speech, normal gait. 5 out of 5 strength in both the distal and proximal upper and lower extremities bilaterally. Sensation is grossly intact throughout. Finger to nose testing normal. Pronator drift normal. PSYCH: Normal mood, normal affect. SKIN: Warm, Dry, normal turgor, no rashes or lesions noted. Course - Re-evaluation Re-evalutation: 09/06/18 19:19 Patient presents with signs and symptoms most consistent with a cervical nerve root impingement likely at C6-7. Patient presents with acute onset of pain into the shoulder, neck, chest, and radiation of pain into the extremity. Patient also reports of some dullness over the forearm as well as into the hand itself. Patient reports symptoms did start after lying down on a couch with her head tilted for prolonged period of time. On neurologic exam patient has 5 out of 5 biceps and triceps strength. RMU motor and sensory distribution including against resistance on motor testing is noted to be normal. 2+ radial pulse and capillary refill is less than 1 second in all digits. Laboratories including troponin have been obtained given associated chest discomfort and are noted to be unremarkable. Pain did start greater than 12 hours prior to presentation and serial troponins are therefore not indicated as initial troponin would already be elevated in case of an infarction event. EKG likewise unremarkable. PERC criteria negative, low clinical suspicion for PE. patient has had improvement of symptoms after receiving analgesia here in the emergency department. Advised supportive pillow for sleep at night, have treated with topicla NSAIDs, and muscle relaxants at night . At this time will discharge with return precautions and follow-up recommendations. Verbal discharge instructions given a the bedside and opportunity for questions given. Medication warnings reviewed. Patient is in agreement with this plan and has verbalized understanding of return precautions and the need for primary care follow-up in the next 24-72 hours. - Vital Signs Vital signs: Temp Pulse Resp BP Pulse Ox 97.8 F 87 13 108/56 L 97 09/06/18 16:26 09/06/18 16:26 09/06/18 18:01 09/06/18 18:01 09/06/18 18:01 - Laboratory Result Diagrams: 09/06/18 17:00 09/06/18 17:00 - Diagnostic Test Radiology reviewed: Image reviewed, Reports reviewed Radiology results interpreted by me: 09/06/18 19:22 Chest x-ray: No acute infiltrate or pneumothorax - EKG Interpretation by Me Additional EKG results interpreted by me: 09/06/18 19:22 Sinus rhythm, rate 65, no ST elevations or depressions. QTC is 408. Discharge - Discharge Clinical Impression: Chest wall pain, Cervical nerve root impingement Left shoulder pain Qualifiers: Chronicity: acute Qualified Code(s): M25.512 - Pain in left shoulder Condition: Good Disposition: HOME, SELF-CARE Additional Instructions: Your pain is likely related to impingement one of your cervical nerve roots and will take 6-8 weeks completely resolved. For your pain: Use the topical Voltaren gel as prescribed and acetaminophen 1000 mg every 6 hours together as needed for pain. Use the muscle relaxants that have been prescribed at night. You should also apply heat to the area regularly using an electric heating plant pad. Return to the emergency department immediately if you develop weakness, loss of sensation, chest pain, shortness of breath, have worsening of your symptoms, or any other symptoms that are worrisome to you. Prescriptions: Cyclobenzaprine HCl [Flexeril 10 mg Tablet] 10 mg PO QHS PRN #15 tablet PRN Reason: Diclofenac Sodium [Voltaren] 100 gm TP TID PRN #100 gel..gm. PRN Reason:
[2018-09-06] MEDS ORDERED: MORPHINE SULFATE 10 MG/ML INJ IV PRN (19:38)
[2018-09-06 20:03] VITALS: BP 127/84
--- NOTE | 2018-09-07 07:35 | EKG REPORT ---
SEVERITY:- NORMAL ECG - SINUS RHYTHM : Confirmed by: Dangelo Mcmillan MD 07-Sep-2018 07:35:11
== END 2018-09-06 20:14 | disposition home or self-care (01) ==
LOC: ER 16:03
DX: M54.12 Radiculopathy, cervical region (principal); M25.512 Pain in left shoulder; R07.89 Other chest pain; F43.10 Post-traumatic stress disorder, unspecified; F17.200 Nicotine dependence, unspecified, uncomplicated; Z88.6 Allergy status to analgesic agent; Z90.49 Acquired absence of other specified parts of digestive tract
CPT/HCPCS: 93005; 99285; 96374; 96375; 36415; 85025; 80053; 84484; 71045; 93010; J2270; J1100

== ENCOUNTER 2018-11-26 20:13 | Emergency (ER) | payer SELFPAY ==
--- NOTE | 2018-11-26 21:12 | RADIOLOGY REPORT (SQ) ---
EXAM DESCRIPTION: Left ankle RadLex: XR ANKLE 2 VIEWS Views: 2 CLINICAL HISTORY: 38 years Female, bone pain; twisted ankle on stairs COMPARISON: None. FINDINGS: Negative for acute fracture, dislocation, or radiopaque foreign body. A plantar calcaneal spur is noted. No lytic changes or periosteal reaction. IMPRESSION: 1. No acute fracture or dislocation 2. Plantar calcaneal spur
[2018-11-26] MEDS ORDERED: ACETAMINOPHEN 325 MG TABLET PO ONE (21:29)
--- NOTE | 2018-11-26 21:30 | ER Document Report ---
HPI - HPI Time Seen by Provider: 11/26/18 21:12 Pain Level: 5 Notes: Patient is a 38-year-old female who presents complaining of left lateral hip pain and left ankle pain status post injury prior to arrival. Patient states that she slipped on a couple steps twisted her ankle and rolled down a small hill. Patient states that she did not hit her head or lose conscious. Patient states that she has pain only to her left hip and left ankle. She is otherwise feeling well. No other concerns or complaints. Weightbearing does increase her pain. She has noticed some swelling to her ankle. Denies any headache, fever, head injury, neck pain, changes in vision/speech/mentation/hearing, URI, sore throat, chest pain, palpitations, syncope, cough, shortness of breath, wheeze, dyspnea, abdominal pain, nausea/vomiting/diarrhea, urinary retention, dysuria, hematuria, loss of control of bowel or bladder, numbness/tingling, saddle anesthesia, muscle paralysis/weakness, or rash. - ROS Systems Reviewed and Negative: Yes All other systems reviewed and negative - REPRODUCTIVE Reproductive: DENIES: : Past Medical History - Social History Smoking Status: Unknown if Ever Smoked Family History: Reviewed & Not Pertinent - Past Medical History Cardiac Medical History: Denies: Hx Coronary Artery Disease, Hx Hypertension Pulmonary Medical History: Denies: Hx Asthma Neurological Medical History: Reports: Hx Migraine Endocrine Medical History: Denies: Hx Diabetes Mellitus Type 1, Hx Diabetes Mellitus Type 2 Renal/ Medical History: Reports: Hx Ovarian Cysts - PCO S. Denies: Hx Peritoneal Dialysis GI Medical History: Reports: Hx Gastritis, Hx Gastroesophageal Reflux Disease - gastritis, Hx Ulcer, Hx Colonoscopy, Hx Endoscopy Musculoskeletal Medical History: Reports Hx Musculoskeletal Deformity - both arm and left foot, Reports Hx Musculoskeletal Trauma Psychiatric Medical History: Reports: Hx Post Traumatic Stress Disorder Traumatic Medical History: Reports: Hx Fractures - Arms and feet Past Surgical History: Reports: Hx Appendectomy - 2000, Hx Cholecystectomy - 2003, Hx Hysterectomy. Denies: Hx Section - Immunizations Immunizations up to date: Yes Hx Diphtheria, Pertussis, Tetanus Vaccination: Yes - 2006 Vertical Provider Document - CONSTITUTIONAL Agree With Documented VS: Yes Notes: PHYSICAL EXAMINATION: GENERAL: Well-appearing, well-nourished and in no acute distress. Head: atraumatic Neck: No midline tenderness. FROM. LUNGS: Breath sounds clear to auscultation bilaterally and equal. No wheezes rales or rhonchi. HEART: Regular rate and rhythm without murmurs, rubs, gallops. Musculoskeletal: Lt foot/ankle: + mild lateral malleolus swelling. No ecchymosis or deformity. LROM to passive/active dorsiflexion. Strength 5+/5. N/V intact distal. + tenderness to the lateral malleolus and area of the ATFL. No bony tenderness of the foot. Achilles intact. Lis Franc maneuver neg. Anterior drawer neg. Left hip: No ecchymosis or deformity. + tenderness lateral hip. LROM to active due to discomfort. N/V intact distal. Extremities: No cyanosis, clubbing, or edema b/l. Peripheral pulses 2+. Capillary refill less than 3 seconds. NEUROLOGICAL: Normal speech. Normal sensory, motor exams PSYCH: Normal mood, normal affect. SKIN: Warm, Dry, normal turgor, no rashes or lesions noted. - INFECTION CONTROL TRAVEL OUTSIDE OF THE [place] IN LAST 30 DAYS: No Course - Re-evaluation Re-evalutation: 11/26/18 22:13 Patient is an afebrile, well-hydrated, 38-year-old female who presents to the ED with left ankle/hip pain which I suspect to be a contusion vs sprain/strain. Vitals are acceptable without any significant tachycardia, tachypnea, or hypoxia. PE is otherwise unremarkable for any neurovascular compromise, obvious tendon/ligament rupture, obvious fracture/dislocation, septic joint. X-rays unremarkable for any acute pathology. Ankle stirrup and crutches were provided today. Tylenol given PO. Patient is nontoxic-appearing. Patient is able to ambulate and weight-bear although she is limping. No other labs or imaging warranted at this time based on H&P. Conservative measures otherwise for sympt oms. Recheck with your PCM in 3-5 days. Consider consult orthopedics. Return to the ED with any worsening/concerning symptoms otherwise as reviewed in discharge. Patient is in agreement. - Vital Signs Vital signs: Temp Pulse Resp BP Pulse Ox 98.1 F 78 16 131/77 H 98 11/26/18 20:28 11/26/18 20:28 11/26/18 20:28 11/26/18 20:28 11/26/18 20:28 Discharge - Discharge Clinical Impression: Left hip pain Left ankle pain Qualifiers: Chronicity: acute Qualified Code(s): M25.572 - Pain in left ankle and joints of left foot Condition: Stable Disposition: HOME, SELF-CARE Instructions: Ankle Stirrup Splint ([facility]) Additional Instructions: Rest, Ice, Compression, Elevation Use crutches/splint as directed (use your at-home crutches) Tylenol/ibuprofen as needed Light stretches daily Strength exercises as able Moist heat and massage may help F/u with your PCP in 3-5 days for a recheck Consider consult(s) with Orthopedics/physical therapy for ongoing/worsening symptoms Return to the ED with any worsening symptoms and/or development of fever, headache, chest pain, palpitations, syncope, shortness of breath, trouble breathing, abdominal pain, n/v/d, muscle weakness/paralysis, numbness/tingling, swelling, redness, or other worsening symptoms that are concerning to you. Forms: Elevated Blood Pressure Referrals: [facility] [Provider Group] - Follow up as needed
--- NOTE | 2018-11-26 22:08 | RADIOLOGY REPORT (SQ) ---
EXAM DESCRIPTION: AP pelvis and one additional view of left hip RadLex: XR HIP 2 OR MORE VIEWS Views: 2 CLINICAL HISTORY: 38 years Female, pain s/p fall COMPARISON: None. FINDINGS: Pelvic alignment is anatomic. No acute fractures. No fracture or dislocation of the left hip. IMPRESSION: 1. No acute findings.
[2018-11-26] MEDS ORDERED: OXYCODONE HCL IR 5 MG TABLET PO ONE (22:16)
[2018-11-26 22:27] VITALS: BP 151/79
== END 2018-11-26 22:27 | disposition home or self-care (01) ==
LOC: ER 20:13
DX: M25.552 Pain in left hip (principal); M25.572 Pain in left ankle and joints of left foot; W10.9XXA Fall (on) (from) unspecified stairs and steps, initial encounter
CPT/HCPCS: 99283; 73600; 73502; L1902

== ENCOUNTER 2019-04-14 20:05 | Emergency (ER) | payer OTHER ==
[2019-04-14] MEDS ORDERED: ONDANSETRON 4 MG TAB.RAPDIS PO ONE (20:27)
[2019-04-14] MEDS ORDERED: OXYCODONE-ACETAMINOPHEN 5-325 MG TABLET PO ONE (20:27)
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
[2019-04-14] MEDS ORDERED: METAXALONE 800 MG TABLET PO ONE (22:27)
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
[2019-04-14] MEDS ORDERED: METHOCARBAMOL 500 MG TABLET PO ONE (22:56)
[2019-04-15] MEDS ORDERED: MORPHINE SULFATE 10 MG/ML INJ IM ONE (00:39)
[2019-04-15 01:13] VITALS: BP 131/91
== END 2019-04-15 01:16 | disposition home or self-care (01) ==
LOC: ER 20:05
DX: M54.6 Pain in thoracic spine (principal); M54.9 Dorsalgia, unspecified; V87.7XXA Person injured in collision between other specified motor vehicles (traffic), initial encounter; Z79.899 Other long term (current) drug therapy; Z88.8 Allergy status to other drugs, medicaments and biological substances; F17.200 Nicotine dependence, unspecified, uncomplicated
CPT/HCPCS: 99283; 96372; 72070; S0119; J2270

== ENCOUNTER → 2019-10-11 | Outpatient (CLI) | payer OTHER ==
--- NOTE | 2019-10-11 13:01 | RADIOLOGY REPORT (SQ) ---
EXAM DESCRIPTION: NM GASTRIC EMPTYING STUDY IMAGES COMPLETED DATE/TIME: 10/11/2019 11:43 am REASON FOR STUDY: NAUSEA WITH VOMITING (R11.2), EPIGASTRIC PAIN (R10.13) R11.2 NAUSEA WITH VOMITING , UNSPECIFIED R10.13 EPIGASTRIC PAIN COMPARISON: None. RADIONUCLIDE AND DOSE: 2 millicuries Tc-99m Sulfur Colloid. Egg salad The route of agent administration: Oral. TECHNIQUE: 1 minute serial static imaging performed at time of meal, 1 hour, 2 hours, 3 hours, and 4 hours as needed. Once stomach reaches 90% emptying, the test is complete. Image intensity values pl otted with respect to time with linear regression algorithm. LIMITATIONS: None. FINDINGS: Patient was observed for 4 hours. Immediate post meal serves as baseline. Gastric emptying at 30 minutes was 13.7%. Gastric emptying at 60 minutes was 27.4% Gastric emptying at 90 minutes was 41.1%. Gastric emptying at 120 minutes was 54.7%. Gastric emptying at 240 minutes was 100% Normal values: 60 minutes: 30-90% retained. If less than 30%, abnormally rapid emptying. If greater than 90%, delaye d gastric emptying. 120 minutes: <60% retained. If greater than 60%, delayed gastric emptying. 240 minutes: <10% retained. If greater than 10%, delayed gastric emptying. IMPRESSION: NORMAL GASTRIC EMPTYING. TECHNICAL DOCUMENTATION: JOB ID: [id number] 2010 [employer]- All Rights Reserved rev Reading location - IP/workstation name: [email or web address]
== END ==
LOC: RAD 07:06
PROVIDERS: ATTEND Internal Medicine Gastroenterology
DX: R11.2 Nausea with vomiting, unspecified (principal); R10.13 Epigastric pain
CPT/HCPCS: 78264; A9541

== ENCOUNTER 2019-12-15 07:52 | Emergency (ER) | payer OTHER ==
[2019-12-15] MEDS ORDERED: NORMAL SALINE 1000 ML 1,000 ML IV ONE ×2 (09:54→12:34)
[2019-12-15] MEDS ORDERED: ONDANSETRON HCL INJ/PF 4 MG/2 ML SDV IV ONE (09:54)
[2019-12-15 11:03] LABS: APPEARANCE,URINE SLIGHTLY-CLOUDY; BILIRUBIN,URINE NEGATIVE (NEGATIVE); CALCIUM OXALATE CRYSTALS,URINE MANY /HPF; GLUCOSE, URINE NEGATIVE (NEGATIVE); KETONES,URINE NEGATIVE (NEGATIVE); LEUKOCYTE ESTERASE,URINE NEGATIVE (NEGATIVE); NITRITE,URINE NEGATIVE (NEGATIVE); PROTEIN,URINE 30 mg/dL (NEGATIVE); URINE SPECIFIC GRAVITY 1.032
[2019-12-15 11:05] LABS: COLOR,URINE YELLOW
[2019-12-15 11:16] LABS: ALKALINE PHOSPHATASE 62 U/L (38-126); ANION GAP 9 (5-19); ASPARTATE AMINO TRANSFERASE 30 U/L (14-36); BILIRUBIN,DIRECT 0.4 mg/dL (0.0-0.4); BILIRUBIN,TOTAL 0.6 mg/dL (0.2-1.3); BLOOD UREA NITROGEN 22 mg/dL (7-20); CALCIUM 9.5 mg/dL (8.4-10.2); CARBON DIOXIDE 22 mmol/L (22-30); CHLORIDE 107 mmol/L (98-107); GLUCOSE 109 mg/dL (75-110); POTASSIUM 4.6 mmol/L (3.6-5.0); TOTAL PROTEIN 6.8 g/dL (6.3-8.2)
--- NOTE | 2019-12-15 11:27 | ER Document Report ---
HPI - HPI Time Seen by Provider: 12/15/19 11:26 Pain Level: 5 Notes: 39-year-old female patient presents emergency department chief complaint of left upper quadrant abdominal pain that radiates to her ribs. She states she has been vomiting all day. She is not taking any medication for her pain. She states that she has a history of gastritis and diverticulitis. Patient has been to the emergency department multiple times for chronic abdominal pain. She has not had fever or chills. She denies diarrhea. - ROS Systems Reviewed and Negative: Yes All other systems reviewed and negative - CONSTITUTIONAL Constitutional: DENIES: Fever, Chills - GASTROINTESTINAL Gastrointestinal: REPORTS: Abdominal Pain - LUQ, Nausea, Patient vomiting. DENIES: Diarrhea - URINARY Urinary: DENIES: Dysuria, Urgency, Frequency - REPRODUCTIVE Reproductive: DENIES: : Past Medical History - General Information source: Patient - Social History Smoking Status: Current Every Day Smoker Chew tobacco use (# tins/day): No Frequency of alcohol use: None Drug Abuse: None Family History: Reviewed & Not Pertinent - Past Medical History Cardiac Medical History: Denies: Hx Coronary Artery Disease, Hx Hypertension Pulmonary Medical History: Denies: Hx Asthma Neurological Medical History: Reports: Hx Migraine Endocrine Medical History: Denies: Hx Diabetes Mellitus Type 1, Hx Diabetes Mellitus Type 2 Renal/ Medical History: Reports: Hx Ovarian Cysts - PCO S. Denies: Hx Peritoneal Dialysis GI Medical History: Reports: Hx Gastritis, Hx Gastroesophageal Reflux Disease - gastritis, Hx Ulcer, Hx Colonoscopy, Hx Endoscopy Musculoskeletal Medical History: Reports Hx Musculoskeletal Deformity - both arm and left foot, Reports Hx Musculoskeletal Trauma Psychiatric Medical History: Reports: Hx Post Traumatic Stress Disorder Traumatic Medical History: Reports: Hx Fractures - Arms and feet Past Surgical History: Reports: Hx Appendectomy - 2000, Hx Cholecystectomy - 2003, Hx Hysterectomy. Denies: Hx Section - Immunizations Immunizations up to date: Yes Hx Diphtheria, Pertussis, Tetanus Vaccination: Yes - 2006 Vertical Provider Document - CONSTITUTIONAL Agree With Documented VS: Yes Notes: PHYSICAL EXAMINATION: GENERAL: Well-appearing, well-nourished and in no acute distress. HEAD: Atraumatic, normocephalic. EYES: Pupils equal round and reactive to light, extraocular movements intact, conjunctiva are normal. ENT: Nares patent, oropharynx clear without exudates. Moist mucous membranes. NECK: Normal range of motion, supple without lymphadenopathy LUNGS: Breath sounds clear to auscultation bilaterally and equal. No wheezes rales or rhonchi. HEART: Regular rate and rhythm without murmurs ABDOMEN: Soft, nondistended abdomen. Tenderness with even the slightest of palpation. Female : deferred Musculoskeletal: Normal range of motion, no pitting or edema. No cyanosis. NEUROLOGICAL: Cranial nerves grossly intact. Normal speech, normal gait. Normal sensory, motor exams PSYCH: Normal mood, normal affect. SKIN: Warm, Dry, normal turgor, no rashes or lesions noted. - INFECTION CONTROL TRAVEL OUTSIDE OF THE [place] IN LAST 30 DAYS: No Course - Re-evaluation Re-evalutation: Laboratory 12/15/19 12/15/19 12/15/19 10:36 10:36 10:36 WBC Cancelled RBC Cancelled Hgb Cancelled Hct Cancelled MCV Cancelled MCH Cancelled MCHC Cancelled RDW Cancelled Plt Count Cancelled Lymph % (Auto) Cancelled [place] % (Auto) Cancelled Eos % (Auto) Cancelled Baso % (Auto) Cancelled Absolute Neuts (auto) Cancelled Absolute Lymphs (auto) Cancelled Absolute Monos (auto) Cancelled Absolute Eos (auto) Cancelled Absolute Basos (auto) Cancelled Seg Neutrophils % Cancelled Platelet Estimate Cancelled Sodium 137.7 Potassium 4.6 Chloride 107 Carbon Dioxide 22 Anion Gap 9 BUN 22 H Creatinine 0.70 Est GFR ( Amer) > 60 Est GFR (MDRD) Non-Af > 60 Glucose 109 Calcium 9.5 Total Bilirubin 0.6 Direct Bilirubin 0.4 Neonat Total Bilirubin Not Reportable Neonat Direct Bilirubin Not Reportable Neonat Indirect Bili Not Reportable AST 30 ALT 26 Alkaline Phosphatase 62 Total Protein 6.8 Albumin 4.0 Lipase 141.4 Urine Color YELLOW Urine Appearance SLIGHTLY-CLOUDY Urine pH 5.0 Ur Specific [place] 1.032 Urine Protein 30 H Urine Glucose (UA) NEGATIVE Urine Ketones NEGATIVE Urine Blood NEGATIVE Urine Nitrite NEGATIVE Urine Bilirubin NEGATIVE Urine Urobilinogen 2.0 H Ur Leukocyte Esterase NEGATIVE Urine WBC (Auto) 2 Squamous Epi Cells Auto 2 Calcium Oxalate Cr Auto MANY Urine Mucus (Auto) MANY Urine Ascorbic Acid NEGATIVE Urine HCG, Qual NEGATIVE Slides for Path Review Cancelled 12/15/19 12:10 WBC 10.9 H RBC 4.10 Hgb 12.3 Hct 36.4 MCV 89 MCH 30.1 MCHC 33.9 RDW 12.9 Plt Count 350 Lymph % (Auto) 49.4 H [place] % (Auto) 9.6 Eos % (Auto) 2.3 Baso % (Auto) 0.8 Absolute Neuts (auto) 4.1 Absolute Lymphs (auto) 5.4 H Absolute Monos (auto) 1.0 Absolute Eos (auto) 0.2 Absolute Basos (auto) 0.1 Seg Neutrophils % 37.9 L Platelet Estimate Sodium Potassium Chloride Carbon Dioxide Anion Gap BUN Creatinine Est GFR ( Amer) Est GFR (MDRD) Non-Af Glucose Calcium Total Bilirubin Direct Bilirubin Neonat Total Bilirubin Neonat Direct Bilirubin Neonat Indirect Bili AST ALT Alkaline Phosphatase Total Protein Albumin Lipase Urine Color Urine Appearance Urine pH Ur Specific [place] Urine Protein Urine Glucose (UA) Urine Ketones Urine Blood Urine Nitrite Urine Bilirubin Urine Urobilinogen Ur Leukocyte Esterase Urine WBC (Auto) Squamous Epi Cells Auto Calcium Oxalate Cr Auto Urine Mucus (Auto) Urine Ascorbic Acid Urine HCG, Qual Slides for Path Review Abdomen/Pelvis CT 12/15/19 12:32 IMPRESSION: No acute finding in the abdomen or pelvis. Mild diverticulosis coli. Mild dependent atelectasis in the right lower lobe. Patient's work-up today has been reassuring. Likely flareup of her chronic abdominal pain. Her pain was controlled here in the emergency department. She has had no episodes of vomiting. 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 - Vital Signs Vital signs: Temp Pulse Resp BP Pulse Ox 97.7 F 93 16 137/94 H 99 12/15/19 08:10 12/15/19 08:10 12/15/19 08:10 12/15/19 08:10 12/15/19 08:10 - Laboratory Result Diagrams: 12/15/19 12:10 12/15/19 10:36 Laboratory results interpreted by me: 12/15/19 12/15/19 10:36 10:36 BUN 22 H Urine Protein 30 H Urine Urobilinogen 2.0 H Discharge - Discharge Clinical Impression: Chronic abdominal pain Condition: Stable Disposition: HOME, SELF-CARE Additional Instructions: Please follow-up with your primary care provider, call them Wednesday to schedule an appointment, let them know you were seen in the emergency department and had a normal work-up today. Referrals: BLANCA MAYES MD [Primary Care Provider] - Follow up as needed
[2019-12-15 12:22] LABS: ABSOLUTE BASOPHILS # (AUTO) 0.1 10^3/uL (0.0-0.2); ABSOLUTE EOSINOPHILS # (AUTO) 0.2 10^3/uL (0.0-0.6); ABSOLUTE LYMPHOCYTES (AUTO) 5.4 10^3/uL (0.5-4.7); ABSOLUTE NEUT (AUTO) 4.1 10^3/uL (1.7-8.2); BASOPHILS % (AUTO) 0.8 % (0-2); EOSINOPHILS % (AUTO) 2.3 % (0-6); HEMATOCRIT 36.4 % (36.0-47.0); HEMOGLOBIN 12.3 g/dL (12.0-15.5); LYMPHOCYTES % (AUTO) 49.4 % (13-45); MEAN CORPUSCULAR HEMOGLOBIN 30.1 pg (27.0-33.4); MEAN CORPUSCULAR HGB CONC 33.9 g/dL (32.0-36.0); MEAN CORPUSCULAR VOLUME 89 fl (80-97); MONOCYTES % (AUTO) 9.6 % (3-13); PLATELET COUNT 350 10^3/uL (150-450); RED CELL DISTRIBUTION WIDTH 12.9 % (11.5-14.0); SEGMENTED NEUTROPHILS % (AUTO) 37.9 % (42-78); TOTAL CELLS COUNTED % (AUTO) 100 %; WHITE BLOOD COUNT 10.9 10^3/uL (4.0-10.5)
[2019-12-15] MEDS ORDERED: PROMETHAZINE HCL INJ 25 MG/1 ML VIAL IV ONE (12:32)
[2019-12-15] MEDS ORDERED: HYDROMORPHONE HCL INJ/PF 2 MG/ML AMPULE IV ONE ×2 (12:32→15:59)
--- NOTE | 2019-12-15 15:05 | RADIOLOGY REPORT (SQ) ---
EXAM DESCRIPTION: CT ABD/PELVIS WITH IV ONLY IMAGES COMPLETED DATE/TIME: 12/15/2019 2:39 pm REASON FOR STUDY: abd pain COMPARISON: 02/12/2018 TECHNIQUE: CT scan of the abdomen and pelvis performed using helical scanning technique with dynamic intravenous contrast injection. No oral contrast. Images reviewed with lung, soft tissue, and bone windows. Reconstructed coronal and sagittal MPR images reviewed. Delayed images for evaluation of the urinary system also acquired. All images stored on PACS. All CT scanners at this facility use dose modulation, iterative reconstruction, and/or weight based d osing when appropriate to reduce radiation dose to as low as reasonably achievable (ALARA). [facility]: Dose Right [facility]: CareDose [facility]: Dose Right [facility]: Teradose 4D [facility]: Mobovivo CONTRAST TYPE AND DOSE: contrast/concentration: Isovue 350.00 mmol/ml; Total Contrast Delivered: 100 .0 ml; Total Saline Delivered: 62.0 ml RENAL FUNCTION: BUN 22 creatinine 0.7 RADIATION DOSE: CT Rad equipment meets quality standard of care and radiation dose reduction techniq ues were employed. CTDIvol: 18.1 - 20.8 mGy. DLP: 2259 mGy-cm.. LIMITATIONS: None. FINDINGS: LOWER CHEST: Mild dependent atelectasis in the right lower lobe. LIVER: Normal size. No masses. No dilated ducts. SPLEEN: Normal size. No focal lesions. PANCREAS: No masses. No significant calcifications. No adjacent inflammation or peripancreatic fluid collections. Pancreatic duct not dilated. GALLBLADDER: Surgically absent. ADRENAL GLANDS: No significant masses or asymmetry. RIGHT KIDNEY AND URETER: No solid masses. No significant calcifications. No hydronephrosis or hyd roureter. LEFT KIDNEY AND URETER: No solid masses. No significant calcifications. No hydronephrosis or hydr oureter. AORTA AND VESSELS: No aneurysm. No dissection. Renal arteries, SMA, celiac without stenosis. RETROPERITONEUM: No retroperitoneal adenopathy, hemorrhage or masses. BOWEL AND PERITONEAL CAVITY: Sigmoid diverticulosis with no associated inflammation. APPENDIX: Surgically absent. PELVIS: No mass. No free fluid. Normal bladder. ABDOMINAL WALL: No masses. No hernias. BONES: No significant or acute findings. OTHER: No other significant finding. IMPRESSION: No acute finding in the abdomen or pelvis. Mild diverticulosis coli. Mild dependent at electasis in the right lower lobe. TECHNICAL DOCUMENTATION: JOB ID: [id number] Quality ID # [id number]: Final reports with documentation of one or more dose reduction techniques (e.g., Au tomated exposure control, adjustment of the mA and/or kV according to patient size, use of iterative reconstruction technique) 2010 [employer]- All Rights Reserved Reading location - IP/workstation name: [email or web address]
[2019-12-15 16:57] VITALS: BP 114/65
== END 2019-12-15 17:00 | disposition home or self-care (01) ==
LOC: ER 07:52
DX: R10.12 Left upper quadrant pain (principal); G89.29 Other chronic pain; R10.819 Abdominal tenderness, unspecified site; R11.2 Nausea with vomiting, unspecified; K57.30 Diverticulosis of large intestine without perforation or abscess without bleeding; J98.11 Atelectasis; F17.200 Nicotine dependence, unspecified, uncomplicated; Z87.19 Personal history of other diseases of the digestive system; Z90.49 Acquired absence of other specified parts of digestive tract; Z90.710 Acquired absence of both cervix and uterus
CPT/HCPCS: 99285; 96361; 96374; 96375; 36415; 83690; 85025; 81025; 80053; 81001; 74177; J1170; J2550; J2405; J7030

== ENCOUNTER 2020-02-07 16:14 | Emergency (ER) | payer OTHER ==
[2020-02-07 16:21] VITALS: BP 113/89
[2020-02-07] MEDS ORDERED: HYDROCODONE/ACETAMINOPHEN 5-325 MG TABLET PO ONE (16:35)
--- NOTE | 2020-02-07 17:30 | ER Document Report ---
HPI - HPI Patient complains to provider of: Right foot injury Time Seen by Provider: 02/07/20 16:32 Pain Level: 4 Context: 40-year-old female past medical history significant for diverticulitis, migraines, gastritis, calcium deficiency presents to the emergency room complaining of right foot pain. States she was unloading groceries when a large can of vegetables fell landing on her right foot. She is complaining of pain to the right lateral foot and fifth toe. No history of previous trauma or injury to her foot. Did not take anything for pain prior to arrival. Patient states she was barefoot at the time. Associated Symptoms: None Exacerbated by: Movement Relieved by: Remaining still Similar symptoms previously: No Recently seen / treated by doctor: No - ROS Systems Reviewed and Negative: Yes All other systems reviewed and negative - NEURO Neurology: DENIES: Weakness - REPRODUCTIVE Reproductive: DENIES: : - MUSCULOSKELETAL Musculoskeletal: REPORTS: Extremity pain - DERM Skin Color: Normal, Erythema Skin Problems: None Past Medical History - General Information source: Patient - Social History Smoking Status: Current Every Day Smoker Frequency of alcohol use: None Drug Abuse: None Family History: Reviewed & Not Pertinent Patient has homicidal ideation: No - Past Medical History Cardiac Medical History: Denies: Hx Coronary Artery Disease, Hx Hypertension Pulmonary Medical History: Denies: Hx Asthma Neurological Medical History: Reports: Hx Migraine Endocrine Medical History: Denies: Hx Diabetes Mellitus Type 1, Hx Diabetes Mellitus Type 2 Renal/ Medical History: Reports: Hx Ovarian Cysts - PCO S. Denies: Hx Peritoneal Dialysis GI Medical History: Reports: Hx Gastritis, Hx Gastroesophageal Reflux Disease - gastritis, Hx Ulcer, Hx Colonoscopy, Hx Endoscopy Musculoskeletal Medical History: Reports Hx Musculoskeletal Deformity - both arm and left foot, Reports Hx Musculoskeletal Trauma Psychiatric Medical History: Reports: Hx Post Traumatic Stress Disorder Traumatic Medical History: Reports: Hx Fractures - Arms and feet Past Surgical History: Reports: Hx Appendectomy - 2000, Hx Cholecystectomy - 2003, Hx Hysterectomy. Denies: Hx Section - Immunizations Immunizations up to date: Yes Hx Diphtheria, Pertussis, Tetanus Vaccination: Yes - 2006 Vertical Provider Document - CONSTITUTIONAL Agree With Documented VS: Yes Exam Limitations: No Limitations General Appearance: Mild Distress - INFECTION CONTROL TRAVEL OUTSIDE OF THE [place] IN LAST 30 DAYS: No - HEENT HEENT: Atraumatic, Normocephalic - NECK Neck: Normal Inspection, Supple, Thyroid Normal - RESPIRATORY Respiratory: Breath Sounds Normal, No Respiratory Distress - CARDIOVASCULAR Cardiovascular: Regular Rate, Regular Rhythm, No Murmur - MUSCULOSKELETAL/EXTREMETIES Musculoskeletal/Extremeties: Tender - Tenderness on palpation to the mid lateral aspect of the right foot. There is tenderness at the base of the right fifth toe. There is erythema, there is no obvious deformity noted. - NEURO Level of Consciousness: Awake, Alert, Appropriate Motor/Sensory: No Motor Deficit, No Sensory Deficit Notes: Positive right pedal pulse. Capillary refill less than 3 seconds. - DERM Integumentary: Warm, Dry, No Rash Course - Re-evaluation Re-evalutation: 02/07/20 18:10 Patient is resting comfortably with decreased pain. X-ray results were reviewed with the patient. Ambulatory with slight limp noted to right foot. Neurovascularly intact. Counseled take Tylenol as needed for pain. Outpatient follow-up with orthopedics if not improving in 2 to 3 days. On-call physician was provided. Patient was given strict return to the emergency room guidelines. Return for any new or worsening symptoms. All questions were answered. Patient verbalized understanding and agrees with plan of care. - Vital Signs Vital signs: Temp Pulse Resp BP Pulse Ox 99.3 F 81 20 113/89 H 99 02/07/20 16:19 02/07/20 16:19 02/07/20 16:19 02/07/20 16:19 02/07/20 16:19 - Diagnostic Test Radiology reviewed: Reports reviewed Discharge - Discharge Clinical Impression: Contusion of right foot Qualifiers: Encounter type: initial encounter Qualified Code(s): S90.31XA - Contusion of right foot, initial encounter Condition: Stable Disposition: HOME, SELF-CARE Instructions: Contusion ([facility]) Additional Instructions: Rest, ice, elevate right foot 20 minutes 3 times a day. Take Tylenol as needed for pain. Outpatient follow-up with orthopedics if not improving in 2 to 3 days. Return to the emergency room for any new or worsening symptoms. Referrals: BLANCA MAYES MD [Primary Care Provider] - Follow up as needed
--- NOTE | 2020-02-07 17:50 | RADIOLOGY REPORT (SQ) ---
EXAM DESCRIPTION: FOOT RIGHT COMPLETE IMAGES COMPLETED DATE/TIME: 02/07/2020 5:25 pm REASON FOR STUDY: injury COMPARISON: None. NUMBER OF VIEWS: Three views. TECHNIQUE: AP, lateral and oblique radiographic images acquired of the right foot. LIMITATIONS: None. FINDINGS: MINERALIZATION: Normal. BONES: No acute fracture or dislocation. No worrisome bone lesions. JOINTS: No effusions. SOFT TISSUES: No soft tissue swelling. No foreign body. OTHER: No other significant finding. IMPRESSION: NEGATIVE STUDY OF THE RIGHT FOOT. NO RADIOGRAPHIC EVIDENCE OF ACUTE INJURY. TECHNICAL DOCUMENTATION: JOB ID: [id number] 2010 [employer]- All Rights Reserved Reading location - IP/workstation name: [email or web address]
--- OUTSIDE RECORDS SUMMARY | 2020-02-09 14:45 | XMS REPORT ---
:1980 [facility] [place] [address] [place] [address] Care Team Providers Name Role Phone Unavailable Unavailable Unavailable Allergies, Adverse Reactions, Alerts Allergy Name Allergy Status Severity Reaction(s) Onset Inactive Treat ing Comments Type Date Date Clinician METOCLOPRAMIDE Drug Active Unknown 2020-0 HCL allergy 1-15 00:00: 00 DIPHENHYDRAMINE Drug Active Unknown 2020-0 HCL allergy 1-15 00:00: 00 DICYCLOMINE HCL Drug Active Unknown 2020-0 allergy 1-15 00:00: 00 TRAMADOL Drug Active Unknown 2020-0 allergy 1-15 00:00: 00 CEPHALEXIN Drug Active Unknown 2020-0 MONOHYDRATE allergy 1-15 00:00: 00 KETOROLAC Drug Active Unknown 2020-0 TROMETHAMINE allergy 1-15 00:00: 00 Medications This patient has no known medications. Problems This patient has no known problems. Procedures This patient has no known procedures. Results Test Description Test Time Test Comments Text Results Atomic Results Result Comments CHOLESTEROL, TOTAL 2019-10-20 10:24:00 Test Item Value Reference Range Comments CHOLESTEROL, TOTAL (test code = 2093-3) 254 mg/dL <200 HDL [id number] 10:24:00 Test Item Value Reference Range Comments HDL CHOLESTEROL (test code = 2085-9) 48 mg/dL >=50 [id number] 10:24:00 Test Item Value Reference Range Comments TRIGLYCERIDES (test code = 254 mg/dL <150 If a non-fasting specimen was 2571-8) collected, consi derrepeat triglyceride kavon ting on a fasting specimen if clinically indicated.Casas on et al. J. of Clin. Lipidol . 2015;9:129-169. [id number] 10:24:00 Test Item Value Reference Range Comments LDL-CHOLESTEROL (test 164 mg/dL (calc) <=99 Reference range: <100Desirable code = 27650-7) range <100 mg/dL for primary prevention;<70 m g/dL for patients with CH D or diabetic patientswith > o r = 2 CHD risk factors.LDL-C is now calculated using the KathyAustinca lculation, which is a valid ated novel method providing better accuracy than the Friedew ald equation in theestimation of LDL-C.Kings SS et al. HARLAN. 2013;310(19): 9741-8458(http:/ /education.Exabeam /faq/BEV067) CHOL/HDLC [id number] 10:24:00 Test Item Value Reference Range Comments CHOL/HDLC RATIO (test code = 9830-1) 5.3 (calc) <5.0 NON HDL [id number] 10:24:00 Test Item Value Reference Range Comments NON HDL CHOLESTEROL (test 206 mg/dL (calc) <130 For p atients with code = 67022-3) diabetes plus 1 major ASCVD riskfactor , treating to a no n-HDL-C goal of <100 mg/ dL(LDL-C of <70 mg/dL) is considered a therapeuticoptio n. URIC [id number] 10:24:00 Test Item Value Reference Range Comments URIC ACID (test code = 5.2 mg/dL 2.5-7.0 Therapeut ic target for gout 3084-1) patients: <6.0 m g/dL COMPREHENSIVE METABOLIC [id number] 10:24:00 Test Item Value Reference Range Comments GLUCOSE (test code = 87 mg/dL 65-99 Fasting ref erence 2345-7) interval UREA NITROGEN (BUN) (test 17 mg/dL 7-25 code = 3094-0) CREATININE (test code = 0.79 mg/dL 0.50-1.10 2160-0) eGFR NON-AFR. GERMAN 94 mL/min/1.73m2 >=60 (test code = 30485-3) eGFR 109 mL/min/1.73m2 >=60 (test code = 65482-5) BUN/CREATININE RATIO NOT APPLICABLE (calc) 6-22 (test code = 3097-3) SODIUM (test code = 144 mmol/L 795-588 3629-2) POTASSIUM (test code = 4.5 mmol/L 3.5-5.3 3-3) CHLORIDE (test code = 108 mmol/L 98-110 2074-0) CARBON DIOXIDE (test code 25 mmol/L 20-32 = 2027-9) CALCIUM (test code = 9.3 mg/dL 8.6-10.2 01111-3) PROTEIN, TOTAL (test code 6.4 g/dL 6.1-8.1 = 2885-2) ALBUMIN (test code = 3.8 g/dL 3.6-5.1 1750-7) GLOBULIN (test code = 2.6 g/dL (calc) 1.9-3.7 67598-4) ALBUMIN/GLOBULIN RATIO 1.5 (calc) 1.0-2.5 (test code = 1759-0) BILIRUBIN, TOTAL (test 0.2 mg/dL 0.2-1.2 code = 1974-) ALKALINE PHOSPHATASE 67 U/L 31-125 (test code = 6768-6) AST (test code = 1920-8) 14 U/L 10-30 ALT (test code = 1742-6) 15 U/L 6-29 CBC (INCLUDES DIFF/PLT)2019-10-20 10:24:00 Test Item Value Reference Range Comments WHITE BLOOD CELL COUNT (test code = 6690-2) 10.5 Thousand/uL 3.8 -10.8 RED BLOOD CELL COUNT (test code = 789-8) 4.41 Million/uL 3.80-5. 10 HEMOGLOBIN (test code = 718-7) 13.2 g/dL 11.7-15.5 HEMATOCRIT (test code = 4544-3) 40.4 % 35.0-45.0 MCV (test code = 787-2) 91.6 fL 80.0-100.0 MCH (test code = 785-6) 29.9 pg 27.0-33.0 MCHC (test code = 786-4) 32.7 g/dL 32.0-36.0 RDW (test code = 788-0) 12.3 % 11.0-15.0 PLATELET COUNT (test code = 777-3) 425 Thousand/uL 140-400 MPV (test code = 776-5) 9.9 fL 7.5-12.5 ABSOLUTE NEUTROPHILS (test code = 751-8) 4368 cells/uL 1500-78 00 ABSOLUTE LYMPHOCYTES (test code = 731-0) 5040 cells/uL 850-390 0 ABSOLUTE MONOCYTES (test code = 742-7) 725 cells/uL 200-950 ABSOLUTE EOSINOPHILS (test code = 711-2) 273 cells/uL 15-500 ABSOLUTE BASOPHILS (test code = 704-7) 95 cells/uL 0-200 NEUTROPHILS (test code = 770-8) 41.6 % LYMPHOCYTES (test code = 736-9) 48.0 % MONOCYTES (test code = 5905-5) 6.9 % EOSINOPHILS (test code = 713-8) 2.6 % BASOPHILS (test code = 706-2) 0.9 % [id number] 10:24:00 Test Item Value Reference Range Comments INSULIN (test code = 26.6 uIU/mL <=19.6 Reference R david < or = 20692-5) 19.6Risk:Optimal < or = 19.6Moderate NAH igh >19.6Adult cardiovascular e vent risk categorycut poin ts (optimal, moderate, high)a re based on [facility] s populationdata from 02/2011.[facility] s insulin assay shows strong microwave engineer ss-reactivity forsome insulin analogs (lispro, aspart, and glar gine)and much lower cross-reac tivity with others (detemir, glulisine). Social History This patient has no known social history. Vital Signs This patient has no known vital signs.
== END 2020-02-07 18:28 | disposition home or self-care (01) ==
LOC: ER 16:14
DX: S90.31XA Contusion of right foot, initial encounter (principal); W20.8XXA Other cause of strike by thrown, projected or falling object, initial encounter; Y93.89 Activity, other specified; Y92.009 Unspecified place in unspecified non-institutional (private) residence as the place of occurrence of the external cause; F17.200 Nicotine dependence, unspecified, uncomplicated; Z90.49 Acquired absence of other specified parts of digestive tract; Z90.710 Acquired absence of both cervix and uterus
CPT/HCPCS: 99283

== ENCOUNTER 2020-03-02 19:06 | Emergency (ER) | payer OTHER ==
[2020-03-02] MEDS ORDERED: ONDANSETRON 4 MG TAB.RAPDIS PO ONE (19:18)
--- NOTE | 2020-03-02 19:18 | ER Document Report ---
ED Medical Screen (RME) - General Chief Complaint: Vomiting Stated Complaint: VOMITING BLOOD Time Seen by Provider: 03/02/20 19:12 Primary Care Provider: BLANCA MAYES MD [Primary Care Provider] - Follow up as needed Mode of Arrival: Wheelchair Information source: Patient Notes: 40-year-old female presented to ED for complaint of vomiting blood. She states she started with abdominal pain yesterday started vomiting at 630 this afternoon with blood. She states it was bright red it began with now it is brown specks. She states she does have a history of erosive gastritis. I did go to her medical and surgical history and confirmed with her. States she does smoke 5 cigarettes a day does not drink or do any illicit drugs. We have reviewed her allergies with her and they are correct. She will get blood urine type and screen and will be seen by one of the providers. I have greeted and performed a rapid initial assessment of this patient. A comprehensive ED assessment and evaluation of the patient, analysis of test results and completion of medical decision making process will be conducted by an additional ED providers. TRAVEL OUTSIDE OF THE [place] IN LAST 30 DAYS: No - Related Data Allergies/Adverse Reactions: cephalexin monohydrate [From Keflex] Allergy (Verified 12/15/19 09:45) dicyclomine [From Bentyl] Allergy (Verified 12/15/19 09:45) ketorolac [From Toradol] Allergy (Verified 12/15/19 09:45) metoclopramide [From Reglan] Allergy (Verified 12/15/19 09:45) tramadol Allergy (Verified 12/15/19 09:45) diphenhydramine [From Benadryl] Adverse Reaction (Verified 12/15/19 09:45) Anxiety haloperidol [From Haldol] Adverse Reaction (Verified 12/15/19 09:45) Anxiety Past Medical History - Past Medical History Cardiac Medical History: Reports: None Pulmonary Medical History: Reports: None EENT Medical History: Reports: None Neurological Medical History: Reports: Hx Migraine Endocrine Medical History: Reports: None Renal/ Medical History: Reports: Hx Ovarian Cysts - PCO S GI Medical History: Reports: Hx Gastritis, Hx Gastroesophageal Reflux Disease - gastritis, Hx Ulcer, Hx Colonoscopy, Hx Endoscopy Musculoskeltal Medical History: Reports Hx Musculoskeletal Deformity - both arm and left foot, Reports Hx Musculoskeletal Trauma Psychiatric Medical History: Reports: Hx Post Traumatic Stress Disorder Traumatic Medical History: Reports: Hx Fractures - Arms and feet Infectious Medical History: Reports: None Past Surgical History: Reports: Hx Appendectomy - 2000, Hx Cholecystectomy - 2003, Hx Hysterectomy - Immunizations Immunizations up to date: No Hx Diphtheria, Pertussis, Tetanus Vaccination: No - 2006 Physical Exam - Vital signs Vitals: Temp Pulse Resp BP Pulse Ox 98.1 F 98 19 146/104 H 99 03/02/20 19:10 03/02/20 19:10 03/02/20 19:10 03/02/20 19:10 03/02/20 19:10 Course - Vital Signs Vital signs: Temp Pulse Resp BP Pulse Ox 98.1 F 98 19 146/104 H 99 03/02/20 19:10 03/02/20 19:10 03/02/20 19:10 03/02/20 19:10 03/02/20 19:10 Doctor's Discharge - Discharge Referrals: BLANCA MAYES MD [Primary Care Provider] - Follow up as needed
[2020-03-02] MEDS ORDERED: FAMOTIDINE 20 MG TABLET PO ONE (19:19)
[2020-03-02 20:21] LABS: ABSOLUTE BASOPHILS # (AUTO) 0.1 10^3/uL (0.0-0.2); ABSOLUTE EOSINOPHILS # (AUTO) 0.1 10^3/uL (0.0-0.6); ABSOLUTE LYMPHOCYTES (AUTO) 4.3 10^3/uL (0.5-4.7); ABSOLUTE MONOCYTES (AUTO) 0.6 10^3/uL (0.1-1.4); ABSOLUTE NEUT (AUTO) 4.8 10^3/uL (1.7-8.2); BASOPHILS % (AUTO) 0.9 % (0-2); EOSINOPHILS % (AUTO) 0.6 % (0-6); HEMATOCRIT 40.7 % (36.0-47.0); MEAN CORPUSCULAR HEMOGLOBIN 29.9 pg (27.0-33.4); MEAN CORPUSCULAR HGB CONC 34.3 g/dL (32.0-36.0); MEAN CORPUSCULAR VOLUME 87 fl (80-97); MONOCYTES % (AUTO) 5.9 % (3-13); PLATELET COUNT 402 10^3/uL (150-450); RED BLOOD COUNT 4.68 10^6/uL (3.72-5.28); RED CELL DISTRIBUTION WIDTH 13.3 % (11.5-14.0); SEGMENTED NEUTROPHILS % (AUTO) 48.6 % (42-78); TOTAL CELLS COUNTED % (AUTO) 100 %; WHITE BLOOD COUNT 9.8 10^3/uL (4.0-10.5)
[2020-03-02 20:43] LABS: ALBUMIN 4.7 g/dL (3.5-5.0); ALKALINE PHOSPHATASE 91 U/L (38-126); ANION GAP 9 (5-19); ASPARTATE AMINO TRANSFERASE 26 U/L (14-36); BILIRUBIN,DIRECT 0.1 mg/dL (0.0-0.4); BILIRUBIN,TOTAL 0.6 mg/dL (0.2-1.3); BLOOD UREA NITROGEN 15 mg/dL (7-20); CALCIUM 10.4 mg/dL (8.4-10.2); CARBON DIOXIDE 20 mmol/L (22-30); CHLORIDE 108 mmol/L (98-107); GLUCOSE 92 mg/dL (75-110); POTASSIUM 4.2 mmol/L (3.6-5.0)
[2020-03-03] MEDS ORDERED: PANTOPRAZOLE SODIUM 40 MG VIAL IV ONE (00:01)
[2020-03-03] MEDS ORDERED: PROMETHAZINE HCL INJ 25 MG/1 ML VIAL IV ONE (00:01)
[2020-03-03] MEDS ORDERED: MORPHINE SULFATE 10 MG/ML INJ IV ONE (00:01)
--- NOTE | 2020-03-03 00:13 | ER Document Report ---
ED General - General Chief Complaint: Vomiting Stated Complaint: VOMITING BLOOD Time Seen by Provider: 03/02/20 19:12 Primary Care Provider: BLANCA MAYES MD [Primary Care Provider] - Follow up as needed Mode of Arrival: Wheelchair TRAVEL OUTSIDE OF THE [place] IN LAST 30 DAYS: No - HPI Context: Time:[id number] Chief Complaint: [Vomiting blood, epigastric pain] [This is a 40-year-old female who presents complaining of vomiting blood. Patient states that she has a history of erosive gastritis and started having some epigastric pain yesterday and then started having vomiting at 1830 hrs. today that was bright red blood. Patient states that she vomited again and the vomitus just had brown specks in it. Patient has multiple allergies including Reglan, Bentyl and she states she is also allergic to Carafate. Patient states she is supposed to be seen by corporate travel consultant and reportedly also by a general surgeon to "cut out some affected areas" in her stomach. ] History obtained from [patient] Symptoms began:[Yesterday] Onset: [Gradual] Timing: [Gradual] Quality: [Sharp] Intensity: [5 out of 5] Location: epigastric region] Radiation: [None] [The pain does not migrate to a new location.] Aggravating factors: [none] Relieving factors: [none] [Denies] SOB Positive nausea Positive vomiting [Denies] sweats [Denies] fever [Denies] cough [Denies] calf or leg swelling or pain - Related Data Allergies/Adverse Reactions: cephalexin monohydrate [From Keflex] Allergy (Verified 12/15/19 09:45) dicyclomine [From Bentyl] Allergy (Verified 12/15/19 09:45) ketorolac [From Toradol] Allergy (Verified 12/15/19 09:45) metoclopramide [From Reglan] Allergy (Verified 12/15/19 09:45) tramadol Allergy (Verified 12/15/19 09:45) diphenhydramine [From Benadryl] Adverse Reaction (Verified 12/15/19 09:45) Anxiety haloperidol [From Haldol] Adverse Reaction (Verified 12/15/19 09:45) Anxiety Past Medical History - General Information source: Patient - Social History Smoking Status: Current Every Day Smoker Frequency of alcohol use: None Drug Abuse: None Family History: Reviewed & Not Pertinent - Past Medical History Cardiac Medical History: Reports: None Pulmonary Medical History: Reports: None EENT Medical History: Reports: None Neurological Medical History: Reports: Hx Migraine Endocrine Medical History: Reports: None Renal/ Medical History: Reports: Hx Ovarian Cysts - PCO S GI Medical History: Reports: Hx Gastritis, Hx Gastroesophageal Reflux Disease - gastritis, Hx Ulcer, Hx Colonoscopy, Hx Endoscopy Musculoskeletal Medical History: Reports Hx Musculoskeletal Deformity - both arm and left foot, Reports Hx Musculoskeletal Trauma Psychiatric Medical History: Reports: Hx Post Traumatic Stress Disorder Traumatic Medical History: Reports: Hx Fractures - Arms and feet Infectious Medical History: Reports: None Past Surgical History: Reports: Hx Appendectomy - 2000, Hx Cholecystectomy - , Hx Hysterectomy - Immunizations Immunizations up to date: No Hx Diphtheria, Pertussis, Tetanus Vaccination: No - 2006 Review of Systems - Review of Systems Notes: Review of systems as below unless otherwise stated in HPI. CONSTITUTIONAL [No] fever, [No] chills. EYES [No] eye pain. ENT [No] URI symptoms, [No] sore throat, [No] ear pain. CARDIOVASCULAR [No] chest pain, [No] palpitations, [No] edema. RESPIRATORY [No] Cough, [No] SOB, [No] wheezing. GASTROINTESTINAL Positive epigastric pain, positive nausea, [No] Diarrhea, positive vomiting, [No] constipation, positive hematemesis [No] rectal bleeding. GENITOURINARY [No] dysuria, [No] urinary frequency, [No] hematuria, [No] urinary urgency, [No] vaginal discharge, [No] vaginal bleeding. MUSCULOSKELETAL [No] Back pain. SKIN [No] Rash. NEUROLOGIC [No] Headache, [No] recent seizures, [No] paralysis,[No] parathesias. ENDOCRINE [No] polyuria. HEMO/LYMPATIC [No] easy brusing PSYCHIATRIC [No] depression. Physical Exam - Vital signs Vitals: Temp Pulse Resp BP Pulse Ox 98.1 F 98 19 146/104 H 99 03/02/20 19:10 03/02/20 19:10 03/02/20 19:10 03/02/20 19:10 03/02/20 19:10 - Notes Notes: CONSTITUTIONAL [Vital signs reviewed, Patient appears uncomfortable, Alert and oriented X 3, Normal stature.] HEAD [Atraumatic, Normocephalic.] EYES [Eyes are normal to inspection, No discharge from eyes, Extraocular muscles intact, Sclera are normal, Conjunctiva are normal.] ENT [External ears normal to inspection, Nose examination normal, Mouth normal to inspection.] NECK [Normal ROM, No jugular venous distention, No meningeal signs, ] RESPIRATORY CHEST [Chest is nontender, Breath sounds normal, No respiratory distress.] CARDIOVASCULAR [RRR, No murmurs, Normal S1 S2, No rub, No gallop.] ABDOMEN [Abdomen is tender to palpation in the epigastric region, no pulsatile masses, No other masses, Bowel sounds normal, No distension, No peritoneal signs, No h ernias.] BACK [There is no CVA Tenderness, There is no tenderness to palpation, Normal inspection.] UPPER EXTREMITY [Inspection normal, No cyanosis, No clubbing, No edema, LOWER EXTREMITY [Inspection normal, No cyanosis, No clubbing, No edema, No calf tenderness, NEURO [No focal motor deficits, No focal sensory deficits, Speech normal.] SKIN [Skin is warm, Skin is dry, Skin is normal color.] PSYCHIATRIC [Normal affect. ] Course - Re-evaluation Re-evalutation: 03/03/20 02:16 Patient states the pain has "eased up some." Results of ED MSE discussed with patient. Patient has had no episodes of hematemesis while here in the emergency department. Patient was counseled that she should get in touch with her corporate travel consultant tomorrow which will be 03/04/2020. All questions were answered prior to discharge. Emergency signs and symptoms, reasons to return to the emergency department discussed with patient. - Vital Signs Vital signs: Temp Pulse Resp BP Pulse Ox 98.2 F 74 22 H 136/89 H 100 03/03/20 00:00 03/03/20 00:00 03/03/20 00:00 03/03/20 00:00 03/03/20 00:00 - Laboratory Result Diagrams: 03/02/20 20:00 03/02/20 20:00 Laboratory results interpreted by me: 03/02/20 03/03/20 20:00 00:15 Chloride 108 H Carbon Dioxide 20 L Calcium 10.4 H Urine Protein 30 H Urine Ketones TRACE H - Diagnostic Test Radiology reviewed: Reports reviewed Discharge - Discharge Clinical Impression: Erosive gastritis with hemorrhage Condition: Stable Disposition: HOME, SELF-CARE Additional Instructions: Return to the Emergency Department without delay if any worse. Being certain to contact your corporate travel consultant on 03/04/2020. HOME CARE INSTRUCTIONS & INFORMATION: Thank you for choosing us for your medical needs. We hope you're satisfied with the care you received. After you leave, you must properly care for your problem and, at the same time, observe its progress. Any condition can change. Some illnesses can change rapidly over hours or days. If your condition worsens, return to the Emergency Department or see your physician promptly. ABOUT YOUR X-RAYS AND EKG'S: If you had an EKG or X-rays taken, they have been read by the Emergency Physician. The X-rays and EKG's will also be read by a Radiologist or Manager Audio within 24 hours. If discrepancies are noted, you will be notified by telephone. Please be certain the ED has a correct telephone number & address where you can be reached. Also, realize that some fractures or abnormalities do not show up on initial X-rays. If your symptoms continue, see your physician. ABOUT YOUR LABORATORY TEST: If you had laboratory tests, the results have been reviewed by the Emergency Physician. Some test results (for example cultures) may not be available for several days. You will be contacted if any test result shows you need additional treatment. Please be certain the ED has a correct telephone number and address where you can be reached. ABOUT YOUR MEDICATIONS: You will receive instructions on how to take your medicine on the prescription label you receive. Additional information may be provided by the Pharmacy. If you have questions afterwards, call the ED for clarification or further instructions. Some prescribed medications may cause drowsiness. Do not perform tasks such as driving a car or operating machinery without consulting your Pharmacist. If you feel you need a refill of pain medication, your condition will need re-evaluation. Please do not call for a r efill of any medication. ABOUT YOUR SIGNATURE: Signature of this document acknowledges to followin. Understanding that you received emergency treatment and that you may be released before al medical problems are known or treated. Please be certain the ED has a correct phone number & address where you can be reached. 2. Acknowledgement that you will arrange for follow-up care as recommended. 3. Authorization for the Emergency Physician to provide information to your follow-up Physician in order to maximize your care. AT ANY TIME, IF YOUR SYMPTOMS CHANGE SIGNIFICANTLY OR WORSEN OR YOU DEVELOP NEW SYMPTOMS, RETURN TO THE EMERGENCY DEPARTMENT IMMEDIATELY FOR RE-EVALUATION. OUR GOAL IS TO PROVIDE EXCELLENT MEDICAL CARE! WE HOPE THAT WE HAVE MET YOUR EXPECTATIONS DURING YOUR EMERGENCY DEPARTMENT VISIT AND THAT YOU FEEL YOU HAVE RECEIVED EXCELLENT CARE! Prescriptions: Hydrocodone/Acetaminophen [Snow 5-325 mg Tablet] 1 tab PO Q6HP PRN #10 tablet PRN Reason: pain Promethazine HCl [Phenergan 25 mg Tablet] 25 mg PO Q6HP PRN #10 tablet PRN Reason: nausea Promethazine HCl [Phenergan 25 mg Supp.rect] 1 supp SD Q6H #6 supp.rect Referrals: BLANCA MAYES MD [Primary Care Provider] - Follow up as needed
[2020-03-03 00:37] LABS: APPEARANCE,URINE CLOUDY; BILIRUBIN,URINE NEGATIVE (NEGATIVE); GLUCOSE, URINE NEGATIVE (NEGATIVE); KETONES,URINE TRACE mg/dL (NEGATIVE); LEUKOCYTE ESTERASE,URINE NEGATIVE (NEGATIVE); NITRITE,URINE NEGATIVE (NEGATIVE); PROTEIN,URINE 30 mg/dL (NEGATIVE); URINE SPECIFIC GRAVITY 1.028; UROBILINOGEN,URINE NEGATIVE mg/dL (<2.0)
[2020-03-03 00:50] LABS: COLOR,URINE YELLOW
--- NOTE | 2020-03-03 01:26 | RADIOLOGY REPORT (SQ) ---
EXAM: CHEST SINGLE VIEW CLINICAL INDICATION: 40-year-old female with epigastric pain. TECHNIQUE: Single view, AP portable chest was obtained. COMPARISON: 09/06/2018. FINDINGS: Unremarkable cardiac and mediastinal silhouette. Heart size is normal. Lungs are clear without focal opacity, pneumothorax or pleural effusions. The visualized bones are within normal limits. IMPRESSION: No acute cardiopulmonary abnormalities.
[2020-03-03] MEDS ORDERED: HYDROMORPHONE HCL INJ/PF 2 MG/ML AMPULE IV ONE (01:35)
[2020-03-03] MEDS ORDERED: HYDROCODONE/ACETAMINOPHEN 5-325 MG (6 TAB/ER DISP) PO PRN (02:15)
[2020-03-03 02:38] VITALS: BP 123/71
== END 2020-03-03 02:37 | disposition home or self-care (01) ==
LOC: ER 19:06
DX: K29.61 Other gastritis with bleeding (principal); R10.13 Epigastric pain; F17.200 Nicotine dependence, unspecified, uncomplicated; Z88.8 Allergy status to other drugs, medicaments and biological substances; Z88.1 Allergy status to other antibiotic agents
CPT/HCPCS: 99284; 96374; 96375; 86900; 86901; 36415; 87086; 86850; 83690; 85025; 81025; 80053; 81001; 71045; S0119; J2270; J1170; C9113; J2550

== ENCOUNTER 2020-03-12 20:06 | Emergency (ER) | payer OTHER ==
--- NOTE | 2020-03-12 21:22 | ER Document Report ---
ED Medical Screen (RME) - General Chief Complaint: Abdominal Pain Stated Complaint: FEVER AND VOMITTING HEADACE Time Seen by Provider: 03/12/20 21:08 Primary Care Provider: BLANCA MAYES MD [Primary Care Provider] - Follow up as needed TRAVEL OUTSIDE OF THE [place] IN LAST 30 DAYS: No - HPI Notes: 03/12/20 21:16 40 year old female who has multiple chronic issues such as diverticulosis hip dysplasia with complaints of left upper quadrant abdominal pain that started last night has become progressively worse today. Reports nausea and vomiting. Patient states she had a similar episode last week and was seen. Reports pain feels like "contractions" since last night has become progressively worse. She took Phenergan around 4 PM which did help with her nausea and vomiting. Patient has not been seen by gastroenterology, Dr. Maynard, because she has not been followed by pain management yet, but she is going tomorrow. Denies any chest pain, shortness of breath, fevers or chills. I have greeted and performed a rapid initial assessment of this patient. A comprehensive ED assessment and evaluation of the patient, analysis of test results and completion of the medical decision making process will be conducted by additional ED providers. PHYSICAL EXAMINATION: GENERAL: Well-appearing, well-nourished and in mild distress CV: s1, s2 regular LUNGS: No respiratory distress abd: LUQ abd on palpation, guarding. no cva tenderness appreciated. Musculoskeletal: Normal range of motion NEUROLOGICAL: Normal speech, normal gait. SKIN: Warm, Dry, normal turgor, no rashes or lesions noted. The patient was evaluated during a global COVID-19 pandemic and that diagnosis was suspected/considered upon their initial presentation. Their evaluation, treatment and testing was consistent with current guidelines for patients who present with complaints or symptoms and may be related to COVID-19. 03/12/20 21:23 - Related Data Allergies/Adverse Reactions: cephalexin monohydrate [From Keflex] Allergy (Verified 03/12/20 20:56) dicyclomine [From Bentyl] Allergy (Verified 03/12/20 20:56) ketorolac [From Toradol] Allergy (Verified 03/12/20 20:56) metoclopramide [From Reglan] Allergy (Verified 03/12/20 20:56) tramadol Allergy (Verified 03/12/20 20:56) diphenhydramine [From Benadryl] Adverse Reaction (Verified 03/12/20 20:56) Anxiety haloperidol [From Haldol] Adverse Reaction (Verified 03/12/20 20:56) Anxiety Home Medications: PHENERGAN. ZOFRAN Past Medical History - Social History Frequency of alcohol use: None Drug Abuse: None Neurological Medical History: Reports: Hx Migraine Renal/ Medical History: Reports: Hx Ovarian Cysts - PCO S GI Medical History: Reports: Hx Gastritis, Hx Gastroesophageal Reflux Disease - gastritis, Hx Ulcer, Hx Colonoscopy, Hx Endoscopy Musculoskeltal Medical History: Reports Hx Musculoskeletal Deformity - both arm and left foot, Reports Hx Musculoskeletal Trauma Psychiatric Medical History: Reports: Hx Post Traumatic Stress Disorder Traumatic Medical History: Reports: Hx Fractures - Arms and feet Past Surgical History: Reports: Hx Appendectomy - 2000, Hx Cholecystectomy - 2003, Hx Hysterectomy - Immunizations Immunizations up to date: No Hx Diphtheria, Pertussis, Tetanus Vaccination: No - 2006 Physical Exam - Vital signs Vitals: Temp Pulse Resp BP Pulse Ox 97.8 F 90 16 125/85 100 03/12/20 20:16 03/12/20 20:16 03/12/20 20:16 03/12/20 20:16 03/12/20 20:16 Course - Vital Signs Vital signs: Temp Pulse Resp BP Pulse Ox 97.8 F 90 16 125/85 100 03/12/20 20:16 03/12/20 20:16 03/12/20 20:16 03/12/20 20:16 03/12/20 20:16 Doctor's Discharge - Discharge Referrals: BLANCA MAYES MD [Primary Care Provider] - Follow up as needed
[2020-03-12] MEDS ORDERED: HYDROCODONE/ACETAMINOPHEN 5-325 MG TABLET PO ONE (21:23)
[2020-03-12] MEDS ORDERED: ONDANSETRON 4 MG TAB.RAPDIS PO ONE (21:23)
[2020-03-12 21:46] LABS: ABSOLUTE BASOPHILS # (AUTO) 0.1 10^3/uL (0.0-0.2); ABSOLUTE EOSINOPHILS # (AUTO) 0.1 10^3/uL (0.0-0.6); ABSOLUTE LYMPHOCYTES (AUTO) 4.5 10^3/uL (0.5-4.7); ABSOLUTE MONOCYTES (AUTO) 0.8 10^3/uL (0.1-1.4); BASOPHILS % (AUTO) 1.4 % (0-2); EOSINOPHILS % (AUTO) 1.6 % (0-6); HEMATOCRIT 38.7 % (36.0-47.0); HEMOGLOBIN 13.4 g/dL (12.0-15.5); LYMPHOCYTES % (AUTO) 47.5 % (13-45); MEAN CORPUSCULAR HEMOGLOBIN 30.2 pg (27.0-33.4); MEAN CORPUSCULAR HGB CONC 34.6 g/dL (32.0-36.0); MEAN CORPUSCULAR VOLUME 87 fl (80-97); MONOCYTES % (AUTO) 8.1 % (3-13); PLATELET COUNT 396 10^3/uL (150-450); RED BLOOD COUNT 4.43 10^6/uL (3.72-5.28); RED CELL DISTRIBUTION WIDTH 13.2 % (11.5-14.0); SEGMENTED NEUTROPHILS % (AUTO) 41.4 % (42-78); TOTAL CELLS COUNTED % (AUTO) 100 %; WHITE BLOOD COUNT 9.5 10^3/uL (4.0-10.5)
[2020-03-12 22:38] LABS: ALBUMIN 3.7 g/dL (3.5-5.0); ALKALINE PHOSPHATASE 82 U/L (38-126); ANION GAP 7 (5-19); ASPARTATE AMINO TRANSFERASE 78 U/L (14-36); BILIRUBIN,DIRECT 0.1 mg/dL (0.0-0.4); BILIRUBIN,TOTAL 0.4 mg/dL (0.2-1.3); BLOOD UREA NITROGEN 18 mg/dL (7-20); CARBON DIOXIDE 25 mmol/L (22-30); CHLORIDE 105 mmol/L (98-107); GLUCOSE 87 mg/dL (75-110); TOTAL PROTEIN 6.7 g/dL (6.3-8.2)
--- NOTE | 2020-03-12 23:56 | ER Document Report ---
ED General - General Chief Complaint: Abdominal Pain Stated Complaint: FEVER AND VOMITTING HEADACE Time Seen by Provider: 03/12/20 21:08 Primary Care Provider: BLANCA MAYES MD [Primary Care Provider] - Follow up as needed TRAVEL OUTSIDE OF THE [place] IN LAST 30 DAYS: No - HPI Notes: 40-year-old female presents with abdominal pain. Patient states she has experienced left-sided abdominal pain for the past 2 years. She states she has seen GI and was diagnosed with erosive gastritis. She is currently pending a surgical evaluation to see if she is eligible to have a surgery to remove the bottom portion of her stomach. Patient states that she also has a pain management appointment tomorrow. She is going to pain management for management of the abdominal pain, headaches and hip pain, and additional areas of pain per patient. Patient states that she has had increasing pain onset last night which progressively worsened today. Pain feels like contractions. Located in the left upper quadrant. She is also had nausea and vomiting. She states she took Phenergan around 4 PM which did help with her symptoms. She denies any blood in her emesis or stools. She states that she was seen last week for similar symptoms. She states that typically a combination of Phenergan, Protonix, morphine and Dilaudid help with her symptoms. She denies fever, cough, shortness of breath, chest pain or current headache. - Related Data Allergies/Adverse Reactions: cephalexin monohydrate [From Keflex] Allergy (Verified 03/12/20 20:56) dicyclomine [From Bentyl] Allergy (Verified 03/12/20 20:56) ketorolac [From Toradol] Allergy (Verified 03/12/20 20:56) metoclopramide [From Reglan] Allergy (Verified 03/12/20 20:56) tramadol Allergy (Verified 03/12/20 20:56) diphenhydramine [From Benadryl] Adverse Reaction (Verified 03/12/20 20:56) Anxiety haloperidol [From Haldol] Adverse Reaction (Verified 03/12/20 20:56) Anxiety Home Medications: PHENERGAN. ZOFRAN Past Medical History - General Information source: Patient - Social History Smoking Status: Current Every Day Smoker Frequency of alcohol use: None Drug Abuse: None Family History: Reviewed & Not Pertinent Patient has homicidal ideation: No Neurological Medical History: Reports: Hx Migraine Renal/ Medical History: Reports: Hx Ovarian Cysts - PCO S GI Medical History: Reports: Hx Gastritis, Hx Gastroesophageal Reflux Disease - gastritis, Hx Ulcer, Hx Colonoscopy, Hx Endoscopy Musculoskeletal Medical History: Reports Hx Musculoskeletal Deformity - both arm and left foot, Reports Hx Musculoskeletal Trauma Psychiatric Medical History: Reports: Hx Post Traumatic Stress Disorder Traumatic Medical History: Reports: Hx Fractures - Arms and feet Past Surgical History: Reports: Hx Appendectomy - 2000, Hx Cholecystectomy - 2003, Hx Hysterectomy - Immunizations Immunizations up to date: No Hx Diphtheria, Pertussis, Tetanus Vaccination: No - 2006 Review of Systems - Review of Systems Constitutional: denies: Chills, Fever EENT: No symptoms reported Cardiovascular: No symptoms reported Respiratory: No symptoms reported Gastrointestinal: See HPI Genitourinary: denies: Dysuria Female Genitourinary: No symptoms reported Musculoskeletal: Joint pain - Chronic L hip pain Skin: No symptoms reported Hematologic/Lymphatic: No symptoms reported Neurological/Psychological: No symptoms reported Physical Exam - Vital signs Vitals: Temp Pulse Resp BP Pulse Ox 97.8 F 90 16 125/85 100 03/12/20 20:16 03/12/20 20:16 03/12/20 20:16 03/12/20 20:16 03/12/20 20:16 - General General appearance: Appears well, Alert In distress: None Notes: Upon entry into the room, patient was resting comfortably in bed in no acute distress. After introduction, patient began wiggling in bed and grabbing left side of abdomen. - HEENT Head: Normocephalic, Atraumatic Eyes: No: Scleral icterus Extraocular movements intact: Yes Pupils: PERRL - Respiratory Breath sounds: Normal - Cardiovascular Rhythm: Regular Heart sounds: Normal auscultation - Abdominal Inspection: Obese Distension: No distension Bowel sounds: Normal Tenderness: Nontender Notes: Patient tolerated auscultation portion of abdominal exam well - Extremities General upper extremity: Normal ROM General lower extremity: Normal ROM - Neurological Neuro grossly intact: Yes Cognition: Normal Orientation: AAOx4 - Skin Skin Temperature: Warm Course - Re-evaluation Re-evalutation: 40-year-old female with history of erosive gastritis and diverticulitis here with typical pain to left side of her abdomen. Patient is afebrile and hemodynamically stable, nontoxic-appearing and in no acute distress. Patient overall has a soft, nonperitoneal abdomen. She had a few areas of tenderness which were not reproducible on subsequent palpations. I suspect that her pain is likely due to exacerbation of her known gastritis, will treat symptomatically with Protonix and additionally Phenergan as she reports success with this medication. Abdominal exam is reassuring. Reviewed previous imaging from patient, she had a normal gastric emptying study in September. A CT abdomen was ordered through triage, it has been sometime since her last one feel that would be reasonable to obtain one today. Labs obtained through triage process and have been reviewed. No leukocytosis or left shift. No acute anemia, hemoglobin within range of multiple previous checks. Electrolytes okay. Creatinine within normal limits. There is a slight elevation of LFTs, T bili and lipase are within normal limits. Urine does not suggest UTI. 03/13/20 02:04 CT abdomen report available, per radiology there are no acute findings, notes that there is no edema around the stomach 03/13/20 02:21 I went into patient's room to update her on her overall reassuring work-up today including no acute findings on the CT. Patient became upset given that she did not receive opioid medications. I discussed with her that the treatment for gastritis is acid reducing medication, which she did receive a dose of Protonix today. She then became more upset and yelling that her GI doctor used the same medications that were provided to her today and she has not had success with it, which is why she needs the surgery "to remove my stomach". She then continued to escalate her behavior, stating that she knows to the director of the hospital and is demanding to see another physician. I discussed with her at this time I do not have an acute finding to consult another physician, and that she is appropriate for discharge at this time. Patient continued to state that she sallie l refuse to sign any papers and refuse to leave the emergency department. I again rediscussed her reassuring work-up today, noting the fact that she has not had any vomiting while in the emergency department and tolerated the oral contrast for CT, I feel that this patient is appropriate to follow-up with GI/surgery/pain management as has already been established. Charge nurse was made aware of the situation. 03/13/20 03:07 Patient was seen ambulatory with a steady gait in NAD - Vital Signs Vital signs: Temp Pulse Resp BP Pulse Ox 97.5 F 77 21 H 141/81 H 93 03/13/20 02:57 03/13/20 02:57 03/13/20 02:57 03/13/20 02:57 03/13/20 02:57 - Laboratory Results Result Diagrams: 03/12/20 21:35 03/12/20 22:00 Laboratory Results Interpreted: 03/12/20 03/12/20 21:35 22:00 Lymph % (Auto) 47.5 H Seg Neutrophils % 41.4 L Sodium 136.5 L AST 78 H ALT 90 H Critical Laboratory Results Reviewed: No Critical Results - Radiology Results Critical Radiology Results Reviewed: No Critical Results Discharge - Discharge Clinical Impression: Chronic abdominal pain Disposition: HOME, SELF-CARE Additional Instructions: Please follow-up with pain medicine, surgery and GI as planned. Return to the emergency department for any concerning worsening symptoms. Referrals: BLANCA MAYES MD [Primary Care Provider] - Follow up as needed
[2020-03-13] MEDS ORDERED: PROMETHAZINE HCL INJ 25 MG/1 ML VIAL IV ONE (00:14)
[2020-03-13] MEDS ORDERED: PANTOPRAZOLE SODIUM 40 MG VIAL IV ONE (00:14)
[2020-03-13 01:01] LABS: APPEARANCE,URINE CLEAR; BILIRUBIN,URINE NEGATIVE (NEGATIVE); COLOR,URINE YELLOW; GLUCOSE, URINE NEGATIVE (NEGATIVE); KETONES,URINE NEGATIVE (NEGATIVE); LEUKOCYTE ESTERASE,URINE NEGATIVE (NEGATIVE); NITRITE,URINE NEGATIVE (NEGATIVE); PROTEIN,URINE NEGATIVE (NEGATIVE); URINE SPECIFIC GRAVITY 1.015; UROBILINOGEN,URINE NEGATIVE mg/dL (<2.0)
--- NOTE | 2020-03-13 01:37 | RADIOLOGY REPORT (SQ) ---
EXAM DESCRIPTION: Site: CT ABD/PELVIS WITH IV ORAL RP: CT ABDOMEN PELVIS WITH IV CONTRAST CLINICAL HISTORY: 40 years Female; severe LUQ abd pain, n/v; TECHNIQUE: CT of the abdomen and pelvis using intravenous contrast. All CT scans at this facility use dose modulation, iterative reconstruction, and/or weight based dosing when appropriate to reduce radiation dose to as low as reasonably achievable. COMPARISON: 12/15/2019 FINDINGS: Abdomen: Stomach: No significant distention or surrounding edema. Liver:No focal lesions. No intrahepatic ductal distention. Gallbladder: Surgically absent Pancreas:Within normal limits Spleen:Within normal limits Right kidney:No hydronephrosis. No focal lesion. Left kidney:No hydronephrosis. No focal lesion. Adrenal glands:Within normal limits Vascular structures:Within normal limits Pelvis: Oral contrast is seen down to the splenic flexure, with no evidence for obstruction. Small bowel:No significant distention. Appendix:Within normal limits Colon:No distention or acute pericolonic edema. No free intraperitoneal fluid or air. Bones: No acute bone findings. Bladder: Unremarkable. No pelvic mass or adenopathy. IMPRESSION: 1. No acute findings 2. Previous cholecystectomy
[2020-03-13 03:00] VITALS: BP 141/81
== END 2020-03-13 03:02 | disposition home or self-care (01) ==
LOC: ER 20:06
DX: K29.70 Gastritis, unspecified, without bleeding (principal); R10.12 Left upper quadrant pain; M25.552 Pain in left hip; G89.29 Other chronic pain; R11.2 Nausea with vomiting, unspecified; F17.200 Nicotine dependence, unspecified, uncomplicated; Z90.49 Acquired absence of other specified parts of digestive tract; Z87.19 Personal history of other diseases of the digestive system; Z88.1 Allergy status to other antibiotic agents; Z88.8 Allergy status to other drugs, medicaments and biological substances; Z88.6 Allergy status to analgesic agent; Z79.899 Other long term (current) drug therapy; R79.89 Other specified abnormal findings of blood chemistry
CPT/HCPCS: 99285; 96374; 96375; 36415; 83690; 85025; 81025; 80053; 81001; 74177; S0119; C9113; J2550